=== PATIENT | male | born 1945 | race Caucasian/White ===

== ENCOUNTER 2016-11-14 12:49 | Outpatient (CLI) | payer MEDICARE, OTHER ==
--- NOTE | 2016-11-14 19:52 | CT Report ---
REVISED: THIS REPORT WAS ORIGINALLY SIGNED ON 11/15/2016 @ 0758. NO CHANGES HAVE BEEN MADE TO THE REPORT. ORIGINAL [facility] REQUISITION WAS REPRINTED ON . LOW DOSE SCREENING CHEST CT: 11/14/2016 CLINICAL HISTORY: Patient is a smoker. TECHNIQUE: Noncontrast low dose lung CT was done at 2 mm intervals. Sagittal and coronal reconstruction images were obtained. In accordance with CT protocol optimization, one or more of the following dose reduction techniques were utilized for this exam: automated exposure control, adjustment of mA and/or KV based on patient size, or use of iterative reconstructive technique. FINDINGS: Lungs show no nodules. No significant areas of ground-glass opacification are seen. No significant cystic changes are noted. Mediastinum demonstrates small benign-appearing lymph nodes in the paratracheal region. Normal cardiac size is seen. Mild to moderate coronary artery calcification is seen in all three coronary arteries. Adrenal glands appear normal. Bones demonstrate anterior spurring in the thoracic spine. IMPRESSION: NO CHANGE IS NOTED COMPARED TO 06/06/2007 AND NO SIGNIFICANT ABNORMALITY NOTED IN THE LUNGS. NORMAL CARDIAC SIZE WITH MILD TO MODERATE CORONARY ARTERY CALCIFICATION SEEN IN ALL THREE CORONARY ARTERIES. JOB #: [id number] EXT JOB #: [id number] [facility]
--- NOTE | 2016-12-08 14:08 | CT Report ---
REVISED: THIS REPORT WAS ORIGINALLY SIGNED ON 11/15/2016 @ 0758. NO CHANGES HAVE BEEN MADE TO THE REPORT. ORIGINAL [facility] REQUISITION WAS REPRINTED ON . LOW DOSE SCREENING CHEST CT: 11/14/2016 CLINICAL HISTORY: Patient is a smoker. TECHNIQUE: Noncontrast low dose lung CT was done at 2 mm intervals. Sagittal and coronal reconstruction images were obtained. In accordance with CT protocol optimization, one or more of the following dose reduction techniques were utilized for this exam: automated exposure control, adjustment of mA and/or KV based on patient size, or use of iterative reconstructive technique. FINDINGS: Lungs show no nodules. No significant areas of ground-glass opacification are seen. No significant cystic changes are noted. Mediastinum demonstrates small benign-appearing lymph nodes in the paratracheal region. Normal cardiac size is seen. Mild to moderate coronary artery calcification is seen in all three coronary arteries. Adrenal glands appear normal. Bones demonstrate anterior spurring in the thoracic spine. IMPRESSION: NO CHANGE IS NOTED COMPARED TO 06/06/2007 AND NO SIGNIFICANT ABNORMALITY NOTED IN THE LUNGS. NORMAL CARDIAC SIZE WITH MILD TO MODERATE CORONARY ARTERY CALCIFICATION SEEN IN ALL THREE CORONARY ARTERIES. MTDD
== END 2016-11-14 12:50 | disposition home or self-care (01) ==
LOC: DI 12:49
PROVIDERS: ATTEND Internal Medicine
DX: Z12.2 Encounter for screening for malignant neoplasm of respiratory organs (principal); I25.10 Atherosclerotic heart disease of native coronary artery without angina pectoris; F17.210 Nicotine dependence, cigarettes, uncomplicated

== ENCOUNTER 2017-02-21 13:48 | Outpatient (CLI) | payer MEDICARE, OTHER ==
--- NOTE | 2017-02-21 15:57 | XRAY Report ---
TWO VIEW CHEST: 02/21/2017 CLINICAL INDICATION: Productive cough. COMPARISON: CT of 11/14/2016. FINDINGS: Frontal and lateral views of the chest demonstrate a normal cardiac silhouette. The lungs are clear. Old, healed right rib fractures are noted. No effusion or pneumothorax is present. IMPRESSION: NO EVIDENCE OF ACUTE CARDIOPULMONARY DISEASE. JOB #: [id number] EXT JOB #:[id number]
== END 2017-02-21 13:49 | disposition home or self-care (01) ==
LOC: DI 13:48
PROVIDERS: ATTEND Internal Medicine
DX: R05 Cough (principal)
CPT/HCPCS: 71020

== ENCOUNTER 2017-12-21 14:49 | Emergency (ER) | payer MEDICARE, OTHER ==
[2017-12-21 14:56] VITALS: BP 149/96
--- NOTE | 2017-12-21 16:30 | ED Physician Documentation ---
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 He has a lancinating pain that is in a very focal area over the medial right knee that takes motion to start. He was worried about the vascular status specifically.) Review of Systems Constitutional: denies: Fever, Chills Cardiac: denies: Chest pain / pressure, Palpitations Respiratory: denies: Dyspnea, Cough PD PAST MEDICAL HISTORY - Past Medical History Cardiovascular: Hypertension - Past Surgical History Past Surgical History: No - Present Medications Home Medications: Ambulatory Orders Medication Instructions Recorded Confirmed Gabapentin 2 tab PO DAILY 04/25/15 04/25/15 Simvastatin 1 tab PO DAILY 04/25/15 04/25/15 Tamsulosin [Flomax] 1 tab PO DAILY 04/25/15 04/25/15 metFORMIN [Glucophage] 2 tab PO BID 04/25/15 04/25/15 Losartan Potassium 25 mg PO 12/21/17 - Allergies Allergies/Adverse Reactions: Allergies Allergy/AdvReac Type Severity Reaction Status Date / Time No Known Drug Allergies Allergy Verified 12/21/17 14:56 - Social History Does the pt smoke?: No Smoking Status: Never smoker Does the pt drink ETOH?: Yes Does the pt have substance abuse?: No PD ED PE NORMAL - Vitals Vital signs reviewed: Yes - General General: Alert and oriented X 3, No acute distress - Extremities Extremities: Other (Right knee is without effusion, he has an area about the size of a half dollar that is marked as the site of his pain but is nontender. He is tender in the popliteal fossa, there is no effusion. There is no tenderness of the anterior knee or calf. His pedal pulses are not easily palpable but they are easily dopplerable.) Results - Vitals Vitals: Vital Signs - 24 hr 12/21/17 14:53 Temperature 36.3 C L Heart Rate 67 Respiratory 20 Rate Blood Pressure 149/96 H O2 Saturation 98 Oxygen O2 Source Room air PD MEDICAL DECISION MAKING - ED course ED course: Clinically he probably has a Donis's cyst, vascular etiologies were ruled out with dopplerable pedal pulses and no evidence of DVT on exam, the DVT study did show a Donis's cyst as well. - Sepsis Event Vital Signs: Vital Signs - 24 hr 12/21/17 14:53 Temperature 36.3 C L Heart Rate 67 Respiratory 20 Rate Blood Pressure 149/96 H O2 Saturation 98 Oxygen O2 Source Room air Departure - Departure Disposition: 01 Home, Self Care Clinical Impression: Right leg pain Donis cyst Qualifiers: Laterality: right Qualified Code(s): M71.21 - Synovial cyst of popliteal space [Donis], right knee Condition: Good Record reviewed to determine appropriate education?: Yes Instructions: ED Cyst Donis Follow-Up: [facility] [Provider Group] - Within 1 week Comments: Tylenol or ibuprofen as needed for pain. Return for new or worsening symptoms. Follow-up for persistent symptoms with the orthopedist. Your blood pressure was elevated today on check into the emergency department. This does not mean that you have hypertension, it is a common phenomenon to come to the emergency department and have elevated blood pressure. I recommend that you see your primary care physician within the week to have it rechecked when you are feeling better. Discharge Date/Time: 12/21/17 18:03
--- NOTE | 2017-12-21 17:44 | Ultrasound Report ---
Procedure Date: 12/21/2017 Accession Number: [id number] / [id number] Procedure: US - Duplex Ext Veins Right CPT Code: FULL RESULT: EXAM: RIGHT LOWER EXTREMITY VENOUS ULTRASOUND EXAM DATE: 12/21/2017 05:01 PM. CLINICAL HISTORY: Leg pain/knee pain. Question of Bakers cyst. COMPARISON: None. TECHNIQUE: Real-time sonographic vascular imaging was performed by the product line manager through the lower extremity utilizing both color-flow and Doppler spectral analysis. Multiple motor vehicle field representative static images were saved for review. FINDINGS: Common Femoral Vein (CFV): Normal. CFV-GSV Junction: Normal. Profunda Femoral Vein (PFV): Normal. Femoral Vein (FV) Prox: Normal. Femoral Vein (FV) Mid: Normal. Femoral Vein (FV) Dist: Normal. Popliteal Vein: Normal. Posterior Tibial Veins: Normal. Peroneal Veins: Normal. Contralateral Side CFV: Normal. Other: Complex right popliteal fossa cyst containing debris. Cyst measures 5.9 x 4.3 x 3.8 cm. IMPRESSION: 1. Large complex right popliteal fossa cyst measuring 5.9 x 4.3 x 3.8 cm. The cyst is avascular and contains a significant amount of debris. 2. No evidence for deep venous thrombosis. RADIA
== END 2017-12-21 18:03 | disposition home or self-care (01) ==
LOC: ED 14:49
DX: M71.21 Synovial cyst of popliteal space [Baker], right knee (principal); I10 Essential (primary) hypertension; Z95.828 Presence of other vascular implants and grafts
CPT/HCPCS: 99283

== ENCOUNTER 2019-03-11 15:16 | Outpatient (CLI) | payer MEDICARE, OTHER ==
--- NOTE | 2019-03-12 10:06 | Ultrasound Report ---
Reason: NOCTURIA Procedure Date: 03/11/2019 Accession Number: [id number] / [id number] Procedure: US - Bladder CPT Code: FULL RESULT: EXAM: PELVIS ULTRASOUND, LIMITED EXAM DATE: 03/11/2019 04:00 PM. CLINICAL HISTORY: NOCTURIA. COMPARISON: None. TECHNIQUE: Real-time scanning was performed with static images obtained. FINDINGS: Bladder: The initial bladder volume was 638 mL. A 45 mL postvoid residual bladder volume is noted. Bilateral ureteral jets documented. Normal wall thickness. No masses evident. Other: None. IMPRESSION: Postvoid bladder residual 45 cc. RADIA
== END 2019-03-11 15:17 | disposition home or self-care (01) ==
LOC: DI 15:16
PROVIDERS: ATTEND Internal Medicine
DX: R35.1 Nocturia (principal); R39.198 Other difficulties with micturition
CPT/HCPCS: 76857

== ENCOUNTER 2019-10-14 13:37 | Outpatient (CLI) | payer MEDICARE, OTHER ==
--- NOTE | 2019-10-15 09:55 | XRAY Report ---
Reason: COUGH Procedure Date: 10/14/2019 Accession Number: [id number] / [id number] Procedure: XR - Chest 2 View X-Ray CPT Code: 56769 Final Report FULL RESULT: EXAM: CHEST RADIOGRAPHY EXAM DATE: 10/14/2019 01:52 PM. CLINICAL HISTORY: Cough. COMPARISON: CHEST 2 VIEW PA/LAT 02/21/2017, CT CHEST SCREEN LOW DOSE W/O 11/14/2016, XR CHEST PA AND LAT 04/01/2007. TECHNIQUE: 2 views. FINDINGS: Lungs/Pleura: Bilateral nipple shadows. No consolidations or pulmonary edema. Healed previous right posterior rib fractures. Heart size within normal limits. No pleural fluid collections. IMPRESSION: No acute consolidations identified. RADIA
== END 2019-10-14 13:38 | disposition home or self-care (01) ==
LOC: DI 13:37
PROVIDERS: ATTEND Nurse Practitioner Family
DX: R49.0 Dysphonia (principal); R05 Cough
CPT/HCPCS: 71046

== ENCOUNTER 2020-05-17 13:06 | Inpatient (IN) | payer MEDICARE, OTHER ==
[2020-05-17] MEDS ORDERED: ACETAMINOPHEN 325 MG TABLET PO PRN (13:36)
[2020-05-17] MEDS ORDERED: ONDANSETRON 4 MG/2 ML VIAL IVP PRN (13:36)
--- NOTE | 2020-05-17 14:17 | XRAY Report ---
PROCEDURE: Chest 1 View X-Ray INDICATIONS: Cellulitis TECHNIQUE: One view of the chest was acquired. COMPARISON: 10/14/2019 FINDINGS: Surgical changes and devices: None. Lungs and pleura: No pleural effusions or pneumothorax. Lungs are clear. Mediastinum: Mediastinal contours appear normal. Heart size is normal. Bones and chest wall: Healed right posterior mid to lower rib fractures are again seen. Overlying sof t tissues appear unremarkable. IMPRESSION: No acute cardiopulmonary pathology. Reviewed by: Willie Osuna MD on 05/17/2020 2:16 PM PST Approved by: Willie Osuna MD on 05/17/2020 2:16 PM PST Station ID: [id number]
[2020-05-17 14:20] LABS: BASOPHILS # (AUTO) 0.1 10^3/uL (0.0-0.1); BASOPHILS % (AUTO) 0.5 %; EOSINOPHILS # (AUTO) 0.1 10^3/uL (0.0-0.7); EOSINOPHILS % (AUTO) 1.2 %; HGB - HEMOGLOBIN 12.5 g/dL (14.0-18.0); LYMPHOCYTES # (AUTO) 1.9 10^3/uL (1.5-3.5); MEAN CORPUSCULAR HEMOGLOBIN 32.8 pg (27.0-31.0); MEAN CORPUSCULAR HGB CONC 33.8 g/dL (32.0-36.0); MEAN CORPUSCULAR VOLUME 97.1 fL (80.0-94.0); MEAN PLATELET VOLUME 9.2 fL (7.4-11.4); MONOCYTES # (AUTO) 0.8 10^3/uL (0.0-1.0); MONOCYTES % (AUTO) 8.5 %; NEUTROPHILS # (AUTO) 6.6 10^3/uL (1.5-6.6); NEUTROPHILS % (AUTO) 69.3 %; PLT - PLATELET COUNT 272 10^3/uL (130-450); RED BLOOD COUNT 3.81 10^6/uL (4.70-6.10); WHITE BLOOD COUNT 9.5 x10^3/uL (4.8-10.8)
[2020-05-17 14:28] LABS: ALBUMIN 3.8 g/dL (3.2-5.5); ALBUMIN/GLOBULIN RATIO 0.9 (1.0-2.2); BILIRUBIN,TOTAL 0.6 mg/dL (0.2-1.0); CALCIUM 9.3 mg/dL (8.5-10.3); CREATININE 0.9 mg/dL (0.6-1.2); TOTAL PROTEIN 8.1 g/dL (6.7-8.2)
[2020-05-17 14:54] LABS: INR 1.1 (0.8-1.2); PT - PROTHROMBIN TIME 11.9 secs (9.9-12.6)
[2020-05-17] MEDS: SODIUM CHLORIDE 0.9% 1,000 ML IV SCH (15:28)
[2020-05-17] MEDS ORDERED: PIPERACILLIN/TAZOBACTAM 3.375 GM in SODIUM CHLORIDE 0.9% MINIBAG 100 ML IV ONE (16:00)
--- NOTE | 2020-05-17 16:58 | PHARMACY PROGRESS NOTE ---
- Best Possible Medication History Admit Date and Time: 05/17/20 1306 Processed by: Pharmacy Medication History completed: Yes Patient Interview: Completed Secondary Source(s): Physician records, Pharmacy records As the person ultimately responsible for medication therapy, providers are able to order a medication from an existing home medication list in [facility] via the "Reconcile Routine" prior to Confirmation of that medication by care support representative. Such practice is discouraged except when the physician, in their clinical judgment, deems that a medical need exists for a medication without regard to previous use.
[2020-05-17] MEDS ORDERED: ZOLPIDEM 5 MG TABLET PO PRN (17:30)
[2020-05-17] MEDS: GABAPENTIN 300 MG CAPSULE PO SCH ×2 (17:35→21:59)
[2020-05-17] MEDS: SODIUM CHLORIDE FLUSH 0.9% 10 ML SYRINGE IVP SCH (17:36)
[2020-05-17] MEDS: INSULIN ASPART 300 UNIT/3 ML PEN SUBQ SCH ×2 (17:36→22:02)
--- NOTE | 2020-05-17 19:31 | HISTORY & PHYSICAL EXAMINATION ---
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 He has had subsequent vascular followup and was told that there is collateral flow in that blood vessel. Patient has had prior diabetic wounds of the upper portions of his feet and was told to always monitor for wounds. He has peripheral neuropathy and has painful numbness of the soles of his feet. Approximately 12 days ago, patient went on a hike and says that he thought he checked his feet and there were no problems. However, the following day while taking a shower, he noticed that there was a black area on the bottom of his right foot for which he went to see a doctor was given topical mupirocin ointment. The area got bigger and more red and he went to see his PCP, who then started him on Keflex and ordered a Wound Clinic appointment. He had the Wound Clinic appointment today and was seen by Dr. Alejandro Miner who did evaluation and deep debridement down to the muscle layer and stated that there was extensive tissue in the area and advised that the patient be admitted for IV antibiotics, having failed oral Keflex. The debrided specimen was sent for culture. Patient is requested to be admitted as a direct admit from [facility] to inpatient status. Patient has not had a fever, he has had normal vital signs at the [facility] clinic. PAST MEDICAL HISTORY: Diabetes, on insulin, type 2 diabetic for 25 years and he admits that he was so sick of managing his diabetes, that for 2 years he did not check one fingerstick glucose. The last A1c was approximately 9.9, one and a half years ago. There is a history of peripheral neuropathy, PVD, hypertension, hyperlipidemia, insomnia. ALLERGIES: NONE. MEDICATIONS 1. KwikPen Humulin insulin 35 units every evening. 2. Metformin 1500 mg in the day and 1000 mg every night. 3. Amlodipine 5 mg daily. 4. Atorvastatin 40 mg daily. 5. Recent Keflex 500 mg q.i.d. 6. Gabapentin 300 mg t.i.d. 7. Losartan 50 mg daily. 8. Ambien 10 mg every night. 9. Aleve p.m. p.r.n. pain. FAMILY HISTORY: Positive for diabetes in his father, no other inherited family diseases. The patient has 2 children and they do not have diabetes. SOCIAL HISTORY: He lives with his . He is active. 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 He chops wood, which he did recently and thinks that the extra weight of carrying the wood added to the wound on the foot. He is a nonsmoker, who quit 14 years ago, drinks alcohol with dinner, 2-3 herbie per day, uses rare THC oil for sleep. REVIEW OF SYSTEMS: There has been no fever, chills, or any cardiopulmonary symptoms, any GI symptoms. A comprehensive review of systems was performed and the pertinent positives are listed, the rest are negative. PHYSICAL EXAMINATION GENERAL: Middle-aged white male who appears in no distress. VITAL SIGNS: Blood pressure 176/74, heart rate 62 in sinus rhythm, afebrile at 36.2 and room air saturation 99%. HEENT: Unremarkable. He has moist oral mucosa. NECK: No JVD or carotid bruits. CHEST: Clear. HEART: Normal heart sounds with no murmurs. ABDOMEN: Soft, nontender. No organomegaly. EXTREMITIES: The left leg appears normal, but has decreased dorsalis pedis pulse. The right leg has redness over the great toe radiating upward and just over the first metatarsal of the right great toe. There is a large bandage. There is decreased dorsalis pedis pulse there as well and he has varicose veins in the right leg. NEUROLOGIC: Grossly intact; however, sensation was not checked. LABORATORY DATA: Sodium 133, potassium 4.5, BUN 27, creatinine 0.9, glucose 265. magnesium 2.0. Normal liver tests. Normal INR 1.1. White blood count 9.5, hemoglobin 12.5, MCV of 97, platelet count normal at 272. IMAGING: Chest x-ray: No active pulmonary disease. EKG: Normal sinus rhythm, borderline first-degree block and otherwise within normal limits. There is no prior EKG for comparison (this is my personal interpretation of the EKG). IMPRESSION/DIAGNOSES 1. Cellulitis. 2. Diabetic foot ulcer. 3. Diabetes mellitus, uncontrolled. 4. Diabetic neuropathy 5. Hypertension, uncontrolled. 6. Peripheral vascular disease. 7. Prerenal azotemia. 8. Anemia. PLAN: Admit patient to inpatient status. Start IV hydration for the prerenal azotemia. Start a diabetic diet, long-acting insulin on his schedule and sliding scale insulin coverage for Accu-Cheks. Obtain an A1c. Continue with his medications for hypertension losartan. Await the culture of tissue that was sent from the deep debridement. Start empiric antibiotics. Dr. Miner informed me that the foot had imaging done in the Wound Clinic, which checks for Pseudomonas and it did light up positive for the Pseudomonas finding. The empiric antibiotic, therefore, will be Zosyn 3.75 mg IV every 6 hours. This was reviewed with the pharmacist Jesu. Obtain a blood culture results before starting the antibiotics. Continue wound topical care as per Dr. Miner, the next bandage change will be in 2 days he said. Continue with his peripheral neuropathy medications and medication for sleep. With this description of his alcohol intake, which is 2-3 glasses of wine per night, concerns for withdrawal; therefore, a CIWA protocol will be ordered. I will also order wine with dinner while he is here. CODE STATUS: FULL CODE. DEEP VENOUS THROMBOSIS PROPHYLAXIS: Pharmacotherapy. ATTESTATION: Patient is expected to be discharged or transferred to another facility within 96 hours: Yes. cc: Alejandro Miner MD TD: 05/17/2020 19:07 MTDD
[2020-05-17] MEDS: PIPERACILLIN/TAZOBACTAM 3.375 GM in SODIUM CHLORIDE 0.9% MINIBAG 100 ML IV SCH (20:30)
[2020-05-17] MEDS ORDERED: CEPHALEXIN 500 MG PO SCH (21:00)
[2020-05-17] MEDS: FAMOTIDINE 20 MG TABLET PO SCH (21:58)
[2020-05-17] MEDS: ZOLPIDEM 5 MG TABLET PO SCH (21:59)
[2020-05-17] MEDS: diphenhydrAMINE 25 MG CAPSULE PO SCH (22:00)
[2020-05-17] MEDS: INSULIN GLARGINE 300 UNIT/3 ML PEN SUBQ SCH (22:01)
[2020-05-18] MEDS: SODIUM CHLORIDE FLUSH 0.9% 10 ML SYRINGE IVP SCH ×4 (00:02→23:32)
[2020-05-18 01:29] LABS: BILIRUBIN,URINE NEGATIVE (NEGATIVE); GLUCOSE, URINE (UA) >=1000 mg/dL (NEGATIVE); KETONES,URINE (UA) NEGATIVE (NEGATIVE); LEUKOCYTE ESTERASE, URINE NEGATIVE (NEGATIVE); NITRITE,URINE NEGATIVE (NEGATIVE); OCCULT BLOOD,URINE NEGATIVE (NEGATIVE); PROTEIN,URINE TRACE mg/dL (NEGATIVE); UROBILINOGEN,URINE 0.2 (NORMAL) E.U./dL (NORMAL)
[2020-05-18 01:31] LABS: CLARITY,URINE CLEAR (CLEAR)
[2020-05-18 01:38] LABS: BACTERIA,URINE None Seen /HPF (None Seen); RBC,URINE None Seen /HPF (0-5); SQUAMOUS EPITHELIAL CELL,UR NONE SEEN (<= Few)
[2020-05-18] MEDS: PIPERACILLIN/TAZOBACTAM 3.375 GM in SODIUM CHLORIDE 0.9% MINIBAG 100 ML IV SCH ×3 (03:49→20:12)
[2020-05-18] MEDS: GABAPENTIN 300 MG CAPSULE PO SCH ×4 (05:09→20:08)
[2020-05-18] MEDS: SODIUM CHLORIDE 0.9% 1,000 ML IV SCH ×3 (05:09→17:06)
[2020-05-18 05:31] LABS: BASOPHILS % (AUTO) 0.4 %; EOSINOPHILS # (AUTO) 0.1 10^3/uL (0.0-0.7); EOSINOPHILS % (AUTO) 1.8 %; LYMPHOCYTES # (AUTO) 1.8 10^3/uL (1.5-3.5); LYMPHOCYTES % (AUTO) 22.8 %; MEAN CORPUSCULAR HEMOGLOBIN 32.7 pg (27.0-31.0); MEAN CORPUSCULAR HGB CONC 33.7 g/dL (32.0-36.0); MEAN PLATELET VOLUME 9.1 fL (7.4-11.4); MONOCYTES # (AUTO) 0.8 10^3/uL (0.0-1.0); MONOCYTES % (AUTO) 10.3 %; NEUTROPHILS % (AUTO) 64.2 %; PLT - PLATELET COUNT 281 10^3/uL (130-450); RED BLOOD COUNT 3.67 10^6/uL (4.70-6.10); RED CELL DISTRIBUTION WIDTH 11.9 % (12.0-15.0); WHITE BLOOD COUNT 7.8 x10^3/uL (4.8-10.8)
[2020-05-18 05:42] LABS: CALCIUM 8.9 mg/dL (8.5-10.3)
[2020-05-18] MEDS ORDERED: GABAPENTIN 300 MG CAPSULE PO ONE (09:00)
[2020-05-18] MEDS: INSULIN ASPART 300 UNIT/3 ML PEN SUBQ SCH ×4 (09:38→20:10)
[2020-05-18] MEDS: FAMOTIDINE 20 MG TABLET PO SCH ×2 (09:39→20:08)
[2020-05-18] MEDS: amLODIPine 5 MG TABLET PO SCH (09:39)
[2020-05-18] MEDS: LOSARTAN 50 MG TABLET PO SCH (09:40)
[2020-05-18] MEDS: ATORVASTATIN 40 MG TABLET PO SCH (09:40)
[2020-05-18] MEDS: HEPARIN 5,000 UNIT/ML VIAL SUBQ SCH ×2 (09:46→20:12)
[2020-05-18 11:56] LABS: HEMOGLOBIN A1c% 9.7 % (4.27-6.07)
--- NOTE | 2020-05-18 13:23 | PROVIDER PROGRESS NOTE ---
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 Wound culture is pending, MRI of feet is pending, will continue antibiotics. Dependent on mri result, orthopedic surgeon might NEED TO be consulted (2) Cellulitis of right lower leg Assessment/Plan: Improved for right lower extremity cellulitis. Erythema and tenderness was improved. Continue antibiotics (3) Diabetes type 2, uncontrolled Assessment/Plan: Patient's A1c is 9.7, uncontrolled. continue home Lantus, increase slide scale, lab monitor (4) HTN (hypertension) Assessment/Plan: Stable (5) PVD (peripheral vascular disease) Assessment/Plan: pt has no acute pain. Patient has a history of PVD, pt had surgery done. advised patient follow with his surgeon.Resume patient home medication gabapentin - Current Meds Current Meds: Current Medications Generic Name Dose Route Start Last Admin Trade Name Freq PRN Reason Stop Dose Admin Amlodipine Besylate 5 mg 05/18/20 09:00 05/18/20 09:39 Norvasc PO 5 mg DAILY ANNIA Administration Atorvastatin Calcium 40 mg 05/18/20 09:00 05/18/20 09:40 Lipitor PO 40 mg DAILY ANNIA Administration Diphenhydramine HCl 25 mg 05/17/20 21:00 05/17/20 22:00 Benadryl PO 25 mg QPM ANNIA Administration Famotidine 20 mg 05/17/20 21:00 05/18/20 09:39 Pepcid PO 20 mg BID ANNIA Administration Heparin Sodium (Porcine) 5,000 unit 05/18/20 09:00 05/18/20 09:46 SUBQ 5,000 unit BID ANNIA Administration Sodium Chloride 1,000 mls @ 100 mls/hr 05/17/20 14:00 05/18/20 09:43 Normal Saline 0.9% IV 100 mls/hr .Q10H ANNIA Administration Piperacillin Sod/Tazobactam 100 mls @ 25 mls/hr 05/17/20 20:00 05/18/20 09:43 Sod 3.375 gm/ Sodium Chloride IV Infused Q8H ANNIA Infusion Insulin Glargine 35 unit 05/17/20 21:00 05/17/20 22:01 Lantus Solostar SUBQ 35 unit QPM ANNIA Administration Losartan Potassium 50 mg 05/18/20 09:00 05/18/20 09:40 Cozaar PO 50 mg DAILY ANNIA Administration Sodium Chloride 10 ml 05/17/20 17:00 05/18/20 09:41 Normal Saline Flush 0.9% IVP 10 ml 0100,0900,1700 ANNIA Administration Zolpidem Tartrate 10 mg 05/17/20 21:00 05/17/20 21:59 Ambien PO 10 mg QPM ANNIA Administration - Lab Result Fish Bone Diagrams: 05/18/20 05:12 05/18/20 05:12 - Additional Planning My Orders: My Active Orders 05/18/20 11:00 Wound Care - MAC [RC] .ONCE 05/18/20 13:00 Gabapentin [Neurontin] 300 mg PO QID 05/18/20 17:00 Insulin Aspart [NovoLOG] 3 - 11 unit SUBQ 0800,1200,1700,2100 Subjective - Subjective Patient Reports: Feeling Better Objective Vital Signs: Vital Signs - 24 hr 05/17/20 05/17/20 05/18/20 14:50 16:00 00:00 Temperature 36.2 C L 36.3 C L Heart Rate Heart Rate [ 62 71 Brachial] Respiratory 20 16 Rate Blood Pressure 176/74 H 125/61 [Right Brachial artery] O2 Saturation 99 93 05/18/20 05/18/20 08:00 09:20 Temperature 36.7 C 36.7 C Heart Rate 61 Heart Rate [ 61 Brachial] Respiratory 18 18 Rate Blood Pressure 146/70 H [Right Brachial artery] O2 Saturation 96 96 Oxygen O2 Source Room air I&O (Last 24 Hrs): Intake and Output Totals x24h 05/16/20 05/17/20 05/18/20 23:59 23:59 23:59 Intake Total 750 3111 Output Total 350 Balance 750 2761 General: Alert, Oriented x3, No acute distress HEENT: Atraumatic Neck: Supple Lymphatic: no adenopathy Neuro: Alert, Non Focal, Oriented Times 3 Cardiovascular: Regular rate, Normal S1, Normal S2 Respiratory: Chest non-tender, No respiratory distress, Breath sounds nml Abdomen: Normal bowel sounds, Soft - Results Results: Laboratory Results WBC 7.8 x10^3/uL (4.8-10.8) 05/18/20 05:12 RBC 3.67 10^6/uL (4.70-6.10) L 05/18/20 05:12 Hgb 12.0 g/dL (14.0-18.0) L 05/18/20 05:12 Hct 35.6 % (42.0-52.0) L 05/18/20 05:12 MCV 97.0 fL (80.0-94.0) H 05/18/20 05:12 MCH 32.7 pg (27.0-31.0) H 05/18/20 05:12 MCHC 33.7 g/dL (32.0-36.0) 05/18/20 05:12 RDW 11.9 % (12.0-15.0) L 05/18/20 05:12 Plt Count 281 10^3/uL (130-450) 05/18/20 05:12 MPV 9.1 fL (7.4-11.4) 05/18/20 05:12 Neut # (Auto) 5.0 10^3/uL (1.5-6.6) 05/18/20 05:12 Lymph # (Auto) 1.8 10^3/uL (1.5-3.5) 05/18/20 05:12 [place] # (Auto) 0.8 10^3/uL (0.0-1.0) 05/18/20 05:12 Eos # (Auto) 0.1 10^3/uL (0.0-0.7) 05/18/20 05:12 Baso # (Auto) 0.0 10^3/uL (0.0-0.1) 05/18/20 05:12 Absolute Nucleated RBC 0.00 x10^3/uL 05/18/20 05:12 Nucleated RBC % 0.0 /100WBC 05/18/20 05:12 PT 11.9 secs (9.9-12.6) 05/17/20 14:13 INR 1.1 (0.8-1.2) 05/17/20 14:13 Sodium 139 mmol/L (135-145) 05/18/20 05:12 Potassium 4.4 mmol/L (3.5-5.0) 05/18/20 05:12 Chloride 103 mmol/L (101-111) 05/18/20 05:12 Carbon Dioxide 25 mmol/L (21-32) 05/18/20 05:12 Anion Gap 11.0 (6-13) 05/18/20 05:12 BUN 21 mg/dL (6-20) H 05/18/20 05:12 Creatinine 1.0 mg/dL (0.6-1.2) 05/18/20 05:12 Estimated GFR (MDRD) 73 (>89) L 05/18/20 05:12 Glucose 122 mg/dL (70-100) H 05/18/20 05:12 POC Whole Bld Glucose 293 mg/dL (70 - 100) H 05/18/20 11:33 Estimat Average Glucose 232 mg/dL (70-100) H 05/18/20 05:12 Hemoglobin A1c % 9.7 % (4.27-6.07) H 05/18/20 05:12 Calcium 8.9 mg/dL (8.5-10.3) 05/18/20 05:12 Magnesium 2.0 mg/dL (1.7-2.8) 05/17/20 14:13 Total Bilirubin 0.6 mg/dL (0.2-1.0) 05/17/20 14:13 AST 12 IU/L (10-42) 05/17/20 14:13 ALT 16 IU/L (10-60) 05/17/20 14:13 Alkaline Phosphatase 86 IU/L (42-121) 05/17/20 14:13 Total Protein 8.1 g/dL (6.7-8.2) 05/17/20 14:13 Albumin 3.8 g/dL (3.2-5.5) 05/17/20 14:13 Globulin 4.3 g/dL (2.1-4.2) H 05/17/20 14:13 Albumin/Globulin Ratio 0.9 (1.0-2.2) L 05/17/20 14:13 Urine Color YELLOW 05/18/20 01:20 Urine Clarity CLEAR (CLEAR) 05/18/20 01:20 Urine pH 7.0 PH (5.0-7.5) 05/18/20 01:20 Ur Specific Tyler 1.020 (1.002-1.030) 05/18/20 01:20 Urine Protein TRACE mg/dL (NEGATIVE) 05/18/20 01:20 Urine Glucose (UA) >=1000 mg/dL (NEGATIVE) H 05/18/20 01:20 Urine Ketones NEGATIVE mg/dL (NEGATIVE) 05/18/20 01:20 Urine Occult Blood NEGATIVE (NEGATIVE) 05/18/20 01:20 Urine Nitrite NEGATIVE (NEGATIVE) 05/18/20 01:20 Urine Bilirubin NEGATIVE (NEGATIVE) 05/18/20 01:20 Urine Urobilinogen 0.2 (NORMAL) E.U./dL (NORMAL) 05/18/20 01:20 Ur Leukocyte Esterase NEGATIVE (NEGATIVE) 05/18/20 01:20 Urine RBC None Seen /HPF (0-5) 05/18/20 01:20 Urine WBC 0-3 /HPF (0-3) 05/18/20 01:20 Ur Squamous Epith Cells NONE SEEN (<= Few) 05/18/20 01:20 Urine Bacteria None Seen /HPF (None Seen) 05/18/20 01:20 Urine Culture Comments NOT INDICATED 05/18/20 01:20 ABX Reporting Has patient been on IV antibiotics over the past 48 hours?: Yes Current Medications - Current Medications Current Medications: Active Medications Acetaminophen (Tylenol) 650 mg PO Q4HR PRN PRN Reason: Pain or Fever > 38C (100.4F) Amlodipine Besylate (Norvasc) 5 mg PO DAILY [facility] Last Admin: 05/18/20 09:39 Dose: 5 mg Documented by: Atorvastatin Calcium (Lipitor) 40 mg PO DAILY [facility] Last Admin: 05/18/20 09:40 Dose: 40 mg Documented by: Diphenhydramine HCl (Benadryl) 25 mg PO QPM [facility] Last Admin: 05/17/20 22:00 Dose: 25 mg Documented by: Famotidine (Pepcid) 20 mg PO BID [facility] Last Admin: 05/18/20 09:39 Dose: 20 mg Documented by: Gabapentin (Neurontin) 300 mg PO QID [facility] Heparin Sodium (Porcine) () 5,000 unit SUBQ BID [facility] Last Admin: 05/18/20 09:46 Dose: 5,000 unit Documented by: Sodium Chloride (Normal Saline 0.9%) 1,000 mls @ 100 mls/hr IV .Q10H [facility] Last Admin: 05/18/20 09:43 Dose: 100 mls/hr Documented by: Piperacillin Sod/Tazobactam (Sod 3.375 gm/ Sodium Chloride) 100 mls @ 25 mls/hr IV Q8H [facility] Last Infusion: 05/18/20 09:43 Dose: Infused Documented by: Insulin Aspart (Novolog) 3 - 11 unit SUBQ 0800,1200,1700,2100 [facility]; Protocol Insulin Glargine (Lantus Solostar) 35 unit SUBQ QPM [facility] Last Admin: 05/17/20 22:01 Dose: 35 unit Documented by: Losartan Potassium (Cozaar) 50 mg PO DAILY [facility] Last Admin: 05/18/20 09:40 Dose: 50 mg Documented by: Ondansetron HCl (Zofran Inj) 4 mg IVP Q6HR PRN PRN Reason: Nausea / Vomiting Sodium Chloride (Normal Saline Flush 0.9%) 10 ml IVP PRN PRN PRN Reason: NEEDED PER PROVIDER ORDERS Sodium Chloride (Normal Saline Flush 0.9%) 10 ml IVP 0100,0900,1700 [facility] Last Admin: 05/18/20 09:41 Dose: 10 ml Documented by: Wine (Wine) 187 ml PO 1800 ANNIA Zolpidem Tartrate (Ambien) 10 mg PO QPM [facility] Last Admin: 05/17/20 21:59 Dose: 10 mg Documented by: metFORMIN [Glucophage] 1,500 mg PO DAILY 04/25/15 Atorvastatin [Lipitor] 40 mg PO DAILY 05/17/20 Cephalexin [Keflex] 500 mg PO QID 05/17/20 Gabapentin [Neurontin] 300 mg PO TID 05/17/20 Insulin Glargine,Hum.rec.anlog [Basaglar Kwikpen U-100] 35 units SQ QPM 05/17/20 Losartan Potassium [Cozaar] 50 mg PO DAILY 05/17/20 Zolpidem Tartrate [Ambien] 10 mg PO QPM PRN 05/17/20 amLODIPine [Norvasc] 5 mg PO DAILY 05/17/20 metFORMIN [Glucophage] 1,000 mg PO QPM 05/17/20
[2020-05-18] MEDS: WINE 187 ML BOTTLE PO SCH (17:08)
--- NOTE | 2020-05-18 17:59 | MRI Report ---
PROCEDURE: Foot RT W/O INDICATIONS: osteomyelitis TECHNIQUE: Noncontrast sagittal T1 spin echo and T2 fast spin echo with fat saturation, long-axis T1 spin echo a nd T2 fast spin echo with fat saturation, short-axis proton density fast spin echo and T2 fast spin e cho with fat saturation through the forefoot. COMPARISON: None. FINDINGS: Image quality: Excellent. Bones and joints: Increased signal is seen in the medial aspect of the metatarsal head adjacent to t he area of skin irregularity, although no discrete cortical destruction is seen to suggest osteomyeli tis. Moderate to severe degenerative changes are seen at the first metatarsophalangeal joint with sub chondral cystic changes and a small joint effusion. Mild degenerative changes are seen in the navicul ar-medial cuneiform articulation. No acute fracture is seen. Soft tissues: Skin irregularity is seen at the medial aspect of the foot adjacent to the first metat arsophalangeal joint with adjacent soft tissue edema. No well-formed fluid collection is seen to sugg est abscess formation. Soft tissue edema is seen at the medial and dorsal aspect of the foot. There i s diffuse fatty infiltration of the intrinsic foot musculature that is most likely related to chronic denervation changes. No intermetatarsal mass is identified. The visualized flexor and extensor tendo ns are intact. No plantar plate tear is identified. IMPRESSION: 1. Soft tissue ulcer at the medial aspect of the foot at the level of the first metatarsophalangeal joint. No discrete subcutaneous fluid collection or abscess is seen. Subcutaneous edema is seen exten ding into the dorsum of the foot. 2. Mild osseous edema at the medial aspect of the first metatarsal head without overlying cortical d estruction is most likely reactive, although osteomyelitis is not entirely excluded. 3. Moderate to severe degenerative changes at the first metatarsophalangeal joint. 4. Chronic fatty infiltration of the intrinsic foot musculature is most likely related to chronic de nervation changes. Reviewed by: Ruddy Ugarte MD on 05/18/2020 5:58 PM PST Approved by: Ruddy Ugarte MD on 05/18/2020 5:58 PM PST Station ID: [id number]
[2020-05-18] MEDS: ZOLPIDEM 5 MG TABLET PO SCH (20:08)
[2020-05-18] MEDS: diphenhydrAMINE 25 MG CAPSULE PO SCH (20:08)
[2020-05-18] MEDS: INSULIN GLARGINE 300 UNIT/3 ML PEN SUBQ SCH (20:09)
[2020-05-19] MEDS: PIPERACILLIN/TAZOBACTAM 3.375 GM in SODIUM CHLORIDE 0.9% MINIBAG 100 ML IV SCH ×3 (04:56→20:26)
[2020-05-19 05:04] LABS: BASOPHILS # (AUTO) 0.1 10^3/uL (0.0-0.1); BASOPHILS % (AUTO) 0.8 %; EOSINOPHILS # (AUTO) 0.2 10^3/uL (0.0-0.7); EOSINOPHILS % (AUTO) 2.5 %; LYMPHOCYTES % (AUTO) 26.3 %; MEAN CORPUSCULAR HEMOGLOBIN 31.7 pg (27.0-31.0); MEAN CORPUSCULAR HGB CONC 32.3 g/dL (32.0-36.0); MEAN CORPUSCULAR VOLUME 98.1 fL (80.0-94.0); MEAN PLATELET VOLUME 8.7 fL (7.4-11.4); MONOCYTES # (AUTO) 0.6 10^3/uL (0.0-1.0); MONOCYTES % (AUTO) 8.3 %; NEUTROPHILS # (AUTO) 4.6 10^3/uL (1.5-6.6); NEUTROPHILS % (AUTO) 61.8 %; PLT - PLATELET COUNT 287 10^3/uL (130-450); RED BLOOD COUNT 3.78 10^6/uL (4.70-6.10); RED CELL DISTRIBUTION WIDTH 11.9 % (12.0-15.0); WHITE BLOOD COUNT 7.5 x10^3/uL (4.8-10.8)
[2020-05-19 05:13] LABS: CALCIUM 9.1 mg/dL (8.5-10.3); CREATININE 1.1 mg/dL (0.6-1.2)
[2020-05-19] MEDS: LOSARTAN 50 MG TABLET PO SCH (08:37)
[2020-05-19] MEDS: GABAPENTIN 300 MG CAPSULE PO SCH ×4 (08:37→21:16)
[2020-05-19] MEDS: amLODIPine 5 MG TABLET PO SCH (08:38)
[2020-05-19] MEDS: FAMOTIDINE 20 MG TABLET PO SCH ×2 (08:38→21:16)
[2020-05-19] MEDS: ATORVASTATIN 40 MG TABLET PO SCH (08:38)
[2020-05-19] MEDS: INSULIN ASPART 300 UNIT/3 ML PEN SUBQ SCH ×6 (08:39→21:14)
[2020-05-19] MEDS: polyethylene glycoL 3350 17 GM PACKET PO SCH ×2 (08:40→08:44)
[2020-05-19] MEDS: SODIUM CHLORIDE FLUSH 0.9% 10 ML SYRINGE IVP SCH ×2 (08:42→16:10)
[2020-05-19] MEDS: HEPARIN 5,000 UNIT/ML VIAL SUBQ SCH ×2 (08:49→21:13)
--- NOTE | 2020-05-19 11:20 | WOUND CARE PROGRESS NOTE ---
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 Plan: wound hygiene today including sharp debridement, repeat culture, new hydrophilic dressing with antibiofilm properties, continue IV antibiotics (pip/shady), reassess in 48 hours. (2) Cellulitis of right lower leg Assessment/Plan: not significantly improved yet. Plan: as above, repeat culture, repeat debridement, continue IV antibiotic therapy; reassess in 48 hours. (3) Diabetes type 2, uncontrolled Qualifiers: Glycemic state: with hyperglycemia Qualified Code(s): E11.65 - Type 2 diabetes mellitus with hyperglycemia Assessment/Plan: still suboptimally controlled. Plan: continue inpatient monitoring and adjustment of insulin as needed. A1c result is pending. - Results Lab Results: Laboratory Results Sodium 139 mmol/L (135-145) 05/19/20 04:58 Potassium 4.5 mmol/L (3.5-5.0) 05/19/20 04:58 Chloride 106 mmol/L (101-111) 05/19/20 04:58 Carbon Dioxide 24 mmol/L (21-32) 05/19/20 04:58 Anion Gap 9.0 (6-13) 05/19/20 04:58 BUN 21 mg/dL (6-20) H 05/19/20 04:58 Creatinine 1.1 mg/dL (0.6-1.2) 05/19/20 04:58 Glucose 114 mg/dL (70-100) H 05/19/20 04:58 Hemoglobin A1c % 9.7 % (4.27-6.07) H 05/18/20 05:12 Calcium 9.1 mg/dL (8.5-10.3) 05/19/20 04:58 Total Bilirubin 0.6 mg/dL (0.2-1.0) 05/17/20 14:13 AST 12 IU/L (10-42) 05/17/20 14:13 ALT 16 IU/L (10-60) 05/17/20 14:13 Alkaline Phosphatase 86 IU/L (42-121) 05/17/20 14:13 Total Protein 8.1 g/dL (6.7-8.2) 05/17/20 14:13 Albumin 3.8 g/dL (3.2-5.5) 05/17/20 14:13 Globulin 4.3 g/dL (2.1-4.2) H 05/17/20 14:13 Albumin/Globulin Ratio 0.9 (1.0-2.2) L 05/17/20 14:13 05/17/20 14:13 Blood - Right Arm Blood Culture - Preliminary NO GROWTH AFTER 1 DAY - Home Meds/Allergies Allergies No Known Drug Allergies Allergy (Verified 05/17/20 15:10) Home Medications Atorvastatin [Lipitor] 40 mg PO DAILY 05/17/20 [History Confirmed 05/17/20] Cephalexin [Keflex] 500 mg PO QID 05/17/20 [History Confirmed 05/17/20] Gabapentin [Neurontin] 300 mg PO TID 05/17/20 [History Confirmed 05/17/20] Insulin Glargine,Hum.rec.anlog [Basaglar Kwikpen U-100] 35 units SQ QPM 05/17/20 [History Confirmed 05/17/20] Losartan Potassium [Cozaar] 50 mg PO DAILY 05/17/20 [History Confirmed 05/17/20] Zolpidem Tartrate [Ambien] 10 mg PO QPM PRN 05/17/20 [History Confirmed 05/17/20] amLODIPine [Norvasc] 5 mg PO DAILY 05/17/20 [History Confirmed 05/17/20] metFORMIN [Glucophage] 1,000 mg PO QPM 05/17/20 [History Confirmed 05/17/20] - Additional Planning Condition/Complexity: Stable Plan Discussed with:: Patient Time Spent: 31-60 minutes Additional Planning Notes: discussed case with hospitalist NGOZI Genao, who agrees with above plans. Objective General: Alert, Oriented x3, Cooperative, No acute distress Extremities: Other (foot still erythematous, swollen; leg still swollen; wound with obvious central areas of necrosis, edges intact, slight undermining distally; periwound macerated; satellite partial thickness wound stable with exposed dermis with minimal slough) Comments/Notes: Molelulight imaging with DarkDrape shows no focal areas of excessive bacterial growth before or after debridement of necrotic tissue and was used for measuring wound size. MRI of foot showed no evidence for osteomyelitis or undrained abscess. - Wound Care Assessment Vital Signs Temp Pulse Resp BP Pulse Ox 05/19/20 08:00 36.7 C 68 16 151/73 H 99 Subjective - Subjective Patient Reports: Feeling Better (less pain in foot, good appetite, sleeping better, no fever/chills; foot and dressing became wet in shower yesterday and nursing staff changed dressing. He reports BS post prandially in 300s) Procedure - Procedure Note Wound Debridement Procedure Note: The wound(s) is/are located: right foot . After informed consent, the wound(s) and periwound were cleansed, then 5% topical lidocaine was applied for local anesthesia. Using a 5 mm curette, the wound(s) was/were sharply debrided of necrotic skin and subcutaneous tissue and muscle including eschar down to viable bleeding muscle and tendon sheath tissue. Skin edges were freshened in a similar fashion. Hemostasis was achieved with pressure and time. A new dressing consisting of a hydrophilic product with antibiofilm properties was applied. Patient tolerated the procedure well without apparent complications. Appropriate follow up instructions were given. Wound measurements in cm: L x W x D: Pre- and post-debridement measurements: Distal wound: pre- 3.9 x 3.5 x 0.9 post- 3.7 x 3.8 x1.9 Proximal wound: pre-0.9 x 4.2 x 0.1 post- 0.9 x 4.2 x0.1 Total area debrided in cm sq: 24.44 ([facility]
[2020-05-19] MEDS: SODIUM CHLORIDE FLUSH 0.9% 10 ML SYRINGE IVP PRN (11:43)
--- NOTE | 2020-05-19 14:53 | PROVIDER PROGRESS NOTE ---
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 Miner. pt has non healing with persistent infection/necrosis. pt had sharp debridement, repeat culture, new hydrophilic dressing with antibiofilm properties, continue IV antibiotics (pip/shady), reassess pt in 48 hours, and followup with new culture, continue pain control. (2) Cellulitis of right lower leg Assessment/Plan: improved yet special in around calf area, almost no erythema or tenderness. blood culture was negative for bacteremia. Plan: repeat wound culture, continue IV antibiotic therapy. (3) Diabetes type 2, uncontrolled still suboptimally controlled. Plan: continue inpatient monitoring and adjustment of insulin slide scale to schedule Tid insulin plus slide scale, continue hiv prevention specialist consult, A1c result is 9.7, advise pt for medical- compliance. (4) HTN (hypertension) Assessment/Plan: Stable (5) PVD (peripheral vascular disease) Assessment/Plan: pt has no acute pain. Patient has a history of PVD, pt had surgery done. advised patient follow up with his surgeon.Marisa patient home medication gabapentin (3) Diabetes type 2, uncontrolled Qualifiers: Glycemic state: with hyperglycemia Qualified Code(s): E11.65 - Type 2 diabetes mellitus with hyperglycemia - Current Meds Current Meds: Current Medications Generic Name Dose Route Start Last Admin Trade Name Freq PRN Reason Stop Dose Admin Amlodipine Besylate 5 mg 05/18/20 09:00 05/19/20 08:38 Norvasc PO 5 mg DAILY ANNIA Administration Atorvastatin Calcium 40 mg 05/18/20 09:00 05/19/20 08:38 Lipitor PO 40 mg DAILY ANNIA Administration Diphenhydramine HCl 25 mg 05/17/20 21:00 05/18/20 20:08 Benadryl PO 25 mg QPM ANNIA Administration Famotidine 20 mg 05/17/20 21:00 05/19/20 08:38 Pepcid PO 20 mg BID ANNIA Administration Gabapentin 300 mg 05/18/20 13:00 05/19/20 13:00 Neurontin PO 300 mg QID ANNIA Administration Heparin Sodium (Porcine) 5,000 unit 05/18/20 09:00 05/19/20 08:49 SUBQ 5,000 unit BID ANNIA Administration Piperacillin Sod/Tazobactam 100 mls @ 25 mls/hr 05/17/20 20:00 05/19/20 11:37 Sod 3.375 gm/ Sodium Chloride IV 25 mls/hr Q8H ANNIA Administration Insulin Aspart 5 unit 05/19/20 12:00 05/19/20 11:47 Novolog SUBQ 5 unit TIDWM ANNIA Administration Protocol Insulin Aspart 2 - 10 unit 05/19/20 12:00 05/19/20 11:48 Novolog SUBQ 8 unit 0800,1200,1700,2100 ANNIA Administration Protocol Insulin Glargine 35 unit 05/17/20 21:00 05/18/20 20:09 Lantus Solostar SUBQ 35 unit QPM ANNIA Administration Losartan Potassium 50 mg 05/18/20 09:00 05/19/20 08:37 Cozaar PO 50 mg DAILY ANNIA Administration Polyethylene Glycol 17 gm 05/19/20 07:30 05/19/20 08:44 Miralax PO Not Given DAILY ANNIA Sodium Chloride 10 ml 05/17/20 13:36 05/19/20 11:43 Normal Saline Flush 0.9% IVP 10 ml PRN PRN Administration NEEDED PER PROVIDER ORDERS Sodium Chloride 10 ml 05/17/20 17:00 05/19/20 08:42 Normal Saline Flush 0.9% IVP Not Given 0100,0900,1700 ANNIA Wine 187 ml 05/18/20 18:00 05/18/20 17:08 Wine PO 187 ml 1800 ANNIA Administration Zolpidem Tartrate 10 mg 05/17/20 21:00 05/18/20 20:08 Ambien PO 10 mg QPM ANNIA Administration - Lab Result Fish Bone Diagrams: 05/19/20 04:58 05/19/20 04:58 - Additional Planning My Orders: My Active Orders 05/19/20 12:00 Insulin Aspart [NovoLOG] 2 - 10 unit SUBQ 0800,1200,1700,2100 Insulin Aspart [NovoLOG] 5 unit SUBQ TIDWM Subjective - Subjective Nursing Reports: No Complaints Objective Vital Signs: Vital Signs - 24 hr 05/18/20 05/18/20 05/19/20 15:47 23:17 08:00 Temperature 36.2 C L 36.1 C L 36.7 C Heart Rate [ 81 72 68 Brachial] Respiratory 18 18 16 Rate Blood Pressure 148/81 H 138/57 H 151/73 H [Right Brachial artery] O2 Saturation 98 98 99 Oxygen O2 Source Room air I&O (Last 24 Hrs): Intake and Output Totals x24h 05/17/20 05/18/20 05/19/20 23:59 23:59 23:59 Intake Total 750 4556 1870 Output Total 350 Balance 750 4206 1870 General: Alert, Oriented x3, No acute distress HEENT: Atraumatic Neck: Supple Lymphatic: no adenopathy Neuro: Alert, Non Focal, Oriented Times 3 Cardiovascular: Regular rate, Normal S1, Normal S2 Respiratory: Chest non-tender, No respiratory distress, Breath sounds nml Abdomen: Normal bowel sounds, Soft Extremities: Normal pulses, Other (cellulitis around right ulcer is improved, with significant reduce erythema and swelling. ulcer was covered with dressing by wound care team) - Results Results: Laboratory Results WBC 7.5 x10^3/uL (4.8-10.8) 05/19/20 04:58 RBC 3.78 10^6/uL (4.70-6.10) L 05/19/20 04:58 Hgb 12.0 g/dL (14.0-18.0) L 05/19/20 04:58 Hct 37.1 % (42.0-52.0) L 05/19/20 04:58 MCV 98.1 fL (80.0-94.0) H 05/19/20 04:58 MCH 31.7 pg (27.0-31.0) H 05/19/20 04:58 MCHC 32.3 g/dL (32.0-36.0) 05/19/20 04:58 RDW 11.9 % (12.0-15.0) L 05/19/20 04:58 Plt Count 287 10^3/uL (130-450) 05/19/20 04:58 MPV 8.7 fL (7.4-11.4) 05/19/20 04:58 Neut # (Auto) 4.6 10^3/uL (1.5-6.6) 05/19/20 04:58 Lymph # (Auto) 2.0 10^3/uL (1.5-3.5) 05/19/20 04:58 [place] # (Auto) 0.6 10^3/uL (0.0-1.0) 05/19/20 04:58 Eos # (Auto) 0.2 10^3/uL (0.0-0.7) 05/19/20 04:58 Baso # (Auto) 0.1 10^3/uL (0.0-0.1) 05/19/20 04:58 Absolute Nucleated RBC 0.00 x10^3/uL 05/19/20 04:58 Nucleated RBC % 0.0 /100WBC 05/19/20 04:58 PT 11.9 secs (9.9-12.6) 05/17/20 14:13 INR 1.1 (0.8-1.2) 05/17/20 14:13 Sodium 139 mmol/L (135-145) 05/19/20 04:58 Potassium 4.5 mmol/L (3.5-5.0) 05/19/20 04:58 Chloride 106 mmol/L (101-111) 05/19/20 04:58 Carbon Dioxide 24 mmol/L (21-32) 05/19/20 04:58 Anion Gap 9.0 (6-13) 05/19/20 04:58 BUN 21 mg/dL (6-20) H 05/19/20 04:58 Creatinine 1.1 mg/dL (0.6-1.2) 05/19/20 04:58 Estimated GFR (MDRD) 65 (>89) L 05/19/20 04:58 Glucose 114 mg/dL (70-100) H 05/19/20 04:58 POC Whole Bld Glucose 304 mg/dL (70 - 100) H 05/19/20 11:27 Estimat Average Glucose 232 mg/dL (70-100) H 05/18/20 05:12 Hemoglobin A1c % 9.7 % (4.27-6.07) H 05/18/20 05:12 Calcium 9.1 mg/dL (8.5-10.3) 05/19/20 04:58 Magnesium 2.0 mg/dL (1.7-2.8) 05/17/20 14:13 Total Bilirubin 0.6 mg/dL (0.2-1.0) 05/17/20 14:13 AST 12 IU/L (10-42) 05/17/20 14:13 ALT 16 IU/L (10-60) 05/17/20 14:13 Alkaline Phosphatase 86 IU/L (42-121) 05/17/20 14:13 Total Protein 8.1 g/dL (6.7-8.2) 05/17/20 14:13 Albumin 3.8 g/dL (3.2-5.5) 05/17/20 14:13 Globulin 4.3 g/dL (2.1-4.2) H 05/17/20 14:13 Albumin/Globulin Ratio 0.9 (1.0-2.2) L 05/17/20 14:13 Urine Color YELLOW 05/18/20 01:20 Urine Clarity CLEAR (CLEAR) 05/18/20 01:20 Urine pH 7.0 PH (5.0-7.5) 05/18/20 01:20 Ur Specific [place] 1.020 (1.002-1.030) 05/18/20 01:20 Urine Protein TRACE mg/dL (NEGATIVE) 05/18/20 01:20 Urine Glucose (UA) >=1000 mg/dL (NEGATIVE) H 05/18/20 01:20 Urine Ketones NEGATIVE mg/dL (NEGATIVE) 05/18/20 01:20 Urine Occult Blood NEGATIVE (NEGATIVE) 05/18/20 01:20 Urine Nitrite NEGATIVE (NEGATIVE) 05/18/20 01:20 Urine Bilirubin NEGATIVE (NEGATIVE) 05/18/20 01:20 Urine Urobilinogen 0.2 (NORMAL) E.U./dL (NORMAL) 05/18/20 01:20 Ur Leukocyte Esterase NEGATIVE (NEGATIVE) 05/18/20 01:20 Urine RBC None Seen /HPF (0-5) 05/18/20 01:20 Urine WBC 0-3 /HPF (0-3) 05/18/20 01:20 Ur Squamous Epith Cells NONE SEEN (<= Few) 05/18/20 01:20 Urine Bacteria None Seen /HPF (None Seen) 05/18/20 01:20 Urine Culture Comments NOT INDICATED 05/18/20 01:20 ABX Reporting Has patient been on IV antibiotics over the past 48 hours?: Yes Current Medications - Current Medications Current Medications: Active Medications Acetaminophen (Tylenol) 650 mg PO Q4HR PRN PRN Reason: Pain or Fever > 38C (100.4F) Amlodipine Besylate (Norvasc) 5 mg PO DAILY [facility] Last Admin: 05/19/20 08:38 Dose: 5 mg Documented by: Atorvastatin Calcium (Lipitor) 40 mg PO DAILY [facility] Last Admin: 05/19/20 08:38 Dose: 40 mg Documented by: Diphenhydramine HCl (Benadryl) 25 mg PO QPM [facility] Last Admin: 05/18/20 20:08 Dose: 25 mg Documented by: Famotidine (Pepcid) 20 mg PO BID [facility] Last Admin: 05/19/20 08:38 Dose: 20 mg Documented by: Gabapentin (Neurontin) 300 mg PO QID [facility] Last Admin: 05/19/20 13:00 Dose: 300 mg Documented by: Heparin Sodium (Porcine) () 5,000 unit SUBQ BID [facility] Last Admin: 05/19/20 08:49 Dose: 5,000 unit Documented by: Piperacillin Sod/Tazobactam (Sod 3.375 gm/ Sodium Chloride) 100 mls @ 25 mls/hr IV Q8H [facility] Last Admin: 05/19/20 11:37 Dose: 25 mls/hr Documented by: Insulin Aspart (Novolog) 5 unit SUBQ TIDWM [facility]; Protocol Last Admin: 05/19/20 11:47 Dose: 5 unit Documented by: Insulin Aspart (Novolog) 2 - 10 unit SUBQ 0800,1200,1700,2100 [facility]; Protocol Last Admin: 05/19/20 11:48 Dose: 8 unit Documented by: Insulin Glargine (Lantus Solostar) 35 unit SUBQ QPM [facility] Last Admin: 05/18/20 20:09 Dose: 35 unit Documented by: Losartan Potassium (Cozaar) 50 mg PO DAILY [facility] Last Admin: 05/19/20 08:37 Dose: 50 mg Documented by: Ondansetron HCl (Zofran Inj) 4 mg IVP Q6HR PRN PRN Reason: Nausea / Vomiting Polyethylene Glycol (Miralax) 17 gm PO DAILY [facility] Last Admin: 05/19/20 08:44 Dose: Not Given Documented by: Sodium Chloride (Normal Saline Flush 0.9%) 10 ml IVP PRN PRN PRN Reason: NEEDED PER PROVIDER ORDERS Last Admin: 05/19/20 11:43 Dose: 10 ml Documented by: Sodium Chloride (Normal Saline Flush 0.9%) 10 ml IVP 0100,0900,1700 [facility] Last Admin: 05/19/20 08:42 Dose: Not Given Documented by: Wine (Wine) 187 ml PO 1800 [facility] Last Admin: 05/18/20 17:08 Dose: 187 ml Documented by: Zolpidem Tartrate (Ambien) 10 mg PO QPM [facility] Last Admin: 05/18/20 20:08 Dose: 10 mg Documented by: metFORMIN [Glucophage] 1,500 mg PO DAILY 04/25/15 Atorvastatin [Lipitor] 40 mg PO DAILY 05/17/20 Cephalexin [Keflex] 500 mg PO QID 05/17/20 Gabapentin [Neurontin] 300 mg PO TID 05/17/20 Insulin Glargine,Hum.rec.anlog [Basaglar Kwikpen U-100] 35 units SQ QPM 05/17/20 Losartan Potassium [Cozaar] 50 mg PO DAILY 05/17/20 Zolpidem Tartrate [Ambien] 10 mg PO QPM PRN 05/17/20 amLODIPine [Norvasc] 5 mg PO DAILY 05/17/20 metFORMIN [Glucophage] 1,000 mg PO QPM 05/17/20
[2020-05-19] MEDS: WINE 187 ML BOTTLE PO SCH (18:26)
[2020-05-19] MEDS: INSULIN GLARGINE 300 UNIT/3 ML PEN SUBQ SCH (21:14)
[2020-05-19] MEDS: ZOLPIDEM 5 MG TABLET PO SCH (21:16)
[2020-05-19] MEDS: diphenhydrAMINE 25 MG CAPSULE PO SCH (21:16)
[2020-05-20] MEDS: PIPERACILLIN/TAZOBACTAM 3.375 GM in SODIUM CHLORIDE 0.9% MINIBAG 100 ML IV SCH ×3 (04:19→20:40)
[2020-05-20] MEDS: SODIUM CHLORIDE FLUSH 0.9% 10 ML SYRINGE IVP SCH ×3 (04:19→17:30)
[2020-05-20 05:05] LABS: BASOPHILS # (AUTO) 0.1 10^3/uL (0.0-0.1); BASOPHILS % (AUTO) 0.8 %; EOSINOPHILS # (AUTO) 0.2 10^3/uL (0.0-0.7); EOSINOPHILS % (AUTO) 2.9 %; HGB - HEMOGLOBIN 12.2 g/dL (14.0-18.0); LYMPHOCYTES # (AUTO) 2.3 10^3/uL (1.5-3.5); LYMPHOCYTES % (AUTO) 29.8 %; MEAN CORPUSCULAR HEMOGLOBIN 32.3 pg (27.0-31.0); MEAN CORPUSCULAR HGB CONC 32.8 g/dL (32.0-36.0); MEAN CORPUSCULAR VOLUME 98.4 fL (80.0-94.0); MEAN PLATELET VOLUME 8.8 fL (7.4-11.4); MONOCYTES # (AUTO) 0.8 10^3/uL (0.0-1.0); MONOCYTES % (AUTO) 9.9 %; NEUTROPHILS # (AUTO) 4.3 10^3/uL (1.5-6.6); NEUTROPHILS % (AUTO) 56.3 %; PLT - PLATELET COUNT 323 10^3/uL (130-450); RED BLOOD COUNT 3.78 10^6/uL (4.70-6.10); RED CELL DISTRIBUTION WIDTH 11.8 % (12.0-15.0); WHITE BLOOD COUNT 7.7 x10^3/uL (4.8-10.8)
[2020-05-20 05:17] LABS: CALCIUM 9.4 mg/dL (8.5-10.3); CREATININE 1.1 mg/dL (0.6-1.2)
[2020-05-20] MEDS: polyethylene glycoL 3350 17 GM PACKET PO SCH (08:42)
[2020-05-20] MEDS: LOSARTAN 50 MG TABLET PO SCH (08:42)
[2020-05-20] MEDS: amLODIPine 5 MG TABLET PO SCH (08:42)
[2020-05-20] MEDS: FAMOTIDINE 20 MG TABLET PO SCH ×2 (08:42→20:29)
[2020-05-20] MEDS: DOCUSATE SODIUM 250 MG CAPSULE PO SCH (08:42)
[2020-05-20] MEDS: SENNA 8.6 MG TABLET PO SCH (08:42)
[2020-05-20] MEDS: ATORVASTATIN 40 MG TABLET PO SCH (08:43)
[2020-05-20] MEDS: GABAPENTIN 300 MG CAPSULE PO SCH ×4 (08:43→20:29)
[2020-05-20] MEDS: INSULIN ASPART 300 UNIT/3 ML PEN SUBQ SCH ×7 (08:44→21:28)
[2020-05-20] MEDS: HEPARIN 5,000 UNIT/ML VIAL SUBQ SCH ×2 (09:01→20:25)
[2020-05-20] MEDS: SODIUM CHLORIDE FLUSH 0.9% 10 ML SYRINGE IVP PRN ×2 (09:01→09:02)
[2020-05-20] MEDS ORDERED: INSULIN ASPART 300 UNIT/3 ML PEN SUBQ ONE (13:47)
--- NOTE | 2020-05-20 13:50 | PROVIDER PROGRESS NOTE ---
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 Patient had wound care in [facility] clinic by Dr. Miner. pt has non healing with persistent infection/necrosis. pt had sharp debridement, repeat culture, new hydrophilic dressing with antibiofilm properties, continue IV antibiotics (pip/shady), reassess pt in 48 hours, and followup with new culture, continue pain control. (2) Cellulitis of right lower leg Assessment/Plan: improved yet special in around calf area, almost no erythema or tenderness. blood culture was negative for bacteremia. Plan: repeat wound culture, continue IV antibiotic therapy. (3) Diabetes type 2, uncontrolled 05/20 add morning Lantus and increase daily short acting insulin, continue ACHS, and slide scale, continue hypoglycemia protocol still suboptimally controlled. Plan: continue inpatient monitoring and adjustment of insulin slide scale to schedule Tid insulin plus slide scale, continue funeral workers consult, A1c result is 9.7, advise pt for medical- compliance. (4) HTN (hypertension) Assessment/Plan: Stable (5) PVD (peripheral vascular disease) Assessment/Plan: pt has no acute pain. Patient has a history of PVD, pt had surgery done. advised patient follow up with his surgeon. Resume patient home medication gabapentin (3) Diabetes type 2, uncontrolled Qualifiers: Glycemic state: with hyperglycemia Qualified Code(s): E11.65 - Type 2 diabetes mellitus with hyperglycemia - Current Meds Current Meds: Current Medications Generic Name Dose Route Start Last Admin Trade Name Rene PRN Reason Stop Dose Admin Amlodipine Besylate 5 mg 05/18/20 09:00 05/20/20 08:42 Norvasc PO 5 mg DAILY ANNIA Administration Atorvastatin Calcium 40 mg 05/18/20 09:00 05/20/20 08:43 Lipitor PO 40 mg DAILY ANNIA Administration Diphenhydramine HCl 25 mg 05/17/20 21:00 05/19/20 21:16 Benadryl PO 25 mg QPM ANNIA Administration Docusate Sodium 250 - 500 mg 05/20/20 09:00 05/20/20 08:42 Colace 250mg Capsule PO 250 mg DAILY ANNIA Administration Famotidine 20 mg 05/17/20 21:00 05/20/20 08:42 Pepcid PO 20 mg BID ANNIA Administration Gabapentin 300 mg 05/18/20 13:00 05/20/20 12:23 Neurontin PO 300 mg QID ANNIA Administration Heparin Sodium (Porcine) 5,000 unit 05/18/20 09:00 05/20/20 09:01 SUBQ 5,000 unit BID ANNIA Administration Piperacillin Sod/Tazobactam 100 mls @ 25 mls/hr 05/17/20 20:00 05/20/20 12:22 Sod 3.375 gm/ Sodium Chloride IV 25 mls/hr Q8H ANNIA Administration Insulin Aspart 5 unit 05/19/20 12:00 05/20/20 12:20 Novolog SUBQ 5 unit TIDWM ANNIA Administration Protocol Insulin Aspart 2 - 10 unit 05/19/20 12:00 05/20/20 12:20 Novolog SUBQ 8 unit 0800,1200,1700,2100 ANNIA Administration Protocol Insulin Glargine 35 unit 05/17/20 21:00 05/19/20 21:14 Lantus Solostar SUBQ 35 unit QPM ANNIA Administration Losartan Potassium 50 mg 05/18/20 09:00 05/20/20 08:42 Cozaar PO 50 mg DAILY ANNIA Administration Polyethylene Glycol 17 gm 05/19/20 07:30 05/20/20 08:42 Miralax PO 17 gm DAILY ANNIA Administration Senna 8.6 - 17.2 mg 05/20/20 09:00 05/20/20 08:42 Senokot PO 8.6 mg DAILY ANNIA Administration Sodium Chloride 10 ml 05/17/20 13:36 05/20/20 09:02 Normal Saline Flush 0.9% IVP 10 ml PRN PRN Administration NEEDED PER PROVIDER ORDERS Sodium Chloride 10 ml 05/17/20 17:00 05/20/20 08:45 Normal Saline Flush 0.9% IVP 10 ml 0100,0900,1700 ANNIA Administration Wine 187 ml 05/18/20 18:00 05/19/20 18:26 Wine PO 187 ml 1800 ANNIA Administration Zolpidem Tartrate 10 mg 05/17/20 21:00 05/19/20 21:16 Ambien PO 10 mg QPM ANNIA Administration - Lab Result Fish Bone Diagrams: 05/20/20 04:55 05/20/20 04:55 - Additional Planning My Orders: My Active Orders 05/20/20 09:00 Docusate Sodium 250Mg Capsule [Colace 250Mg Capsule] 250 - 500 mg PO DAILY Senna [Senokot] 8.6 - 17.2 mg PO DAILY 05/20/20 17:00 Saccharomyces Boulardii [Florastor] 250 mg PO BIDWM Subjective - Subjective Patient Reports: Feeling Better Nursing Reports: No Complaints Objective Vital Signs: Vital Signs - 24 hr 05/19/20 05/19/20 05/20/20 15:49 23:43 08:00 Temperature 36.9 C 36.4 C L 36.8 C Heart Rate [ 66 67 68 Brachial] Respiratory 14 18 20 Rate Blood Pressure 129/53 L 124/59 L 142/73 H [Right Brachial artery] O2 Saturation 99 97 99 Oxygen O2 Source Room air I&O (Last 24 Hrs): Intake and Output Totals x24h 05/18/20 05/19/20 05/20/20 23:59 23:59 23:59 Intake Total 4556 2620 1320 Output Total 350 Balance 4206 2620 1320 General: Alert, Oriented x3, No acute distress HEENT: Atraumatic Neck: Supple Lymphatic: no adenopathy Neuro: Alert, Non Focal, Oriented Times 3 Cardiovascular: Regular rate, Normal S1, Normal S2 Respiratory: Chest non-tender, No respiratory distress, Breath sounds nml Abdomen: Normal bowel sounds, Soft Extremities: Normal pulses - Results Results: Laboratory Results WBC 7.7 x10^3/uL (4.8-10.8) 05/20/20 04:55 RBC 3.78 10^6/uL (4.70-6.10) L 05/20/20 04:55 Hgb 12.2 g/dL (14.0-18.0) L 05/20/20 04:55 Hct 37.2 % (42.0-52.0) L 05/20/20 04:55 MCV 98.4 fL (80.0-94.0) H 05/20/20 04:55 MCH 32.3 pg (27.0-31.0) H 05/20/20 04:55 MCHC 32.8 g/dL (32.0-36.0) 05/20/20 04:55 RDW 11.8 % (12.0-15.0) L 05/20/20 04:55 Plt Count 323 10^3/uL (130-450) 05/20/20 04:55 MPV 8.8 fL (7.4-11.4) 05/20/20 04:55 Neut # (Auto) 4.3 10^3/uL (1.5-6.6) 05/20/20 04:55 Lymph # (Auto) 2.3 10^3/uL (1.5-3.5) 05/20/20 04:55 [place] # (Auto) 0.8 10^3/uL (0.0-1.0) 05/20/20 04:55 Eos # (Auto) 0.2 10^3/uL (0.0-0.7) 05/20/20 04:55 Baso # (Auto) 0.1 10^3/uL (0.0-0.1) 05/20/20 04:55 Absolute Nucleated RBC 0.00 x10^3/uL 05/20/20 04:55 Nucleated RBC % 0.0 /100WBC 05/20/20 04:55 PT 11.9 secs (9.9-12.6) 05/17/20 14:13 INR 1.1 (0.8-1.2) 05/17/20 14:13 Sodium 139 mmol/L (135-145) 05/20/20 04:55 Potassium 4.6 mmol/L (3.5-5.0) 05/20/20 04:55 Chloride 102 mmol/L (101-111) 05/20/20 04:55 Carbon Dioxide 27 mmol/L (21-32) 05/20/20 04:55 Anion Gap 10.0 (6-13) 05/20/20 04:55 BUN 23 mg/dL (6-20) H 05/20/20 04:55 Creatinine 1.1 mg/dL (0.6-1.2) 05/20/20 04:55 Estimated GFR (MDRD) 65 (>89) L 05/20/20 04:55 Glucose 151 mg/dL (70-100) H 05/20/20 04:55 POC Whole Bld Glucose 313 mg/dL (70 - 100) H 05/20/20 11:37 Estimat Average Glucose 232 mg/dL (70-100) H 05/18/20 05:12 Hemoglobin A1c % 9.7 % (4.27-6.07) H 05/18/20 05:12 Calcium 9.4 mg/dL (8.5-10.3) 05/20/20 04:55 Magnesium 2.0 mg/dL (1.7-2.8) 05/17/20 14:13 Total Bilirubin 0.6 mg/dL (0.2-1.0) 05/17/20 14:13 AST 12 IU/L (10-42) 05/17/20 14:13 ALT 16 IU/L (10-60) 05/17/20 14:13 Alkaline Phosphatase 86 IU/L (42-121) 05/17/20 14:13 Total Protein 8.1 g/dL (6.7-8.2) 05/17/20 14:13 Albumin 3.8 g/dL (3.2-5.5) 05/17/20 14:13 Globulin 4.3 g/dL (2.1-4.2) H 05/17/20 14:13 Albumin/Globulin Ratio 0.9 (1.0-2.2) L 05/17/20 14:13 Urine Color YELLOW 05/18/20 01:20 Urine Clarity CLEAR (CLEAR) 05/18/20 01:20 Urine pH 7.0 PH (5.0-7.5) 05/18/20 01:20 Ur Specific [place] 1.020 (1.002-1.030) 05/18/20 01:20 Urine Protein TRACE mg/dL (NEGATIVE) 05/18/20 01:20 Urine Glucose (UA) >=1000 mg/dL (NEGATIVE) H 05/18/20 01:20 Urine Ketones NEGATIVE mg/dL (NEGATIVE) 05/18/20 01:20 Urine Occult Blood NEGATIVE (NEGATIVE) 05/18/20 01:20 Urine Nitrite NEGATIVE (NEGATIVE) 05/18/20 01:20 Urine Bilirubin NEGATIVE (NEGATIVE) 05/18/20 01:20 Urine Urobilinogen 0.2 (NORMAL) E.U./dL (NORMAL) 05/18/20 01:20 Ur Leukocyte Esterase NEGATIVE (NEGATIVE) 05/18/20 01:20 Urine RBC None Seen /HPF (0-5) 05/18/20 01:20 Urine WBC 0-3 /HPF (0-3) 05/18/20 01:20 Ur Squamous Epith Cells NONE SEEN (<= Few) 05/18/20 01:20 Urine Bacteria None Seen /HPF (None Seen) 05/18/20 01:20 Urine Culture Comments NOT INDICATED 05/18/20 01:20 Coronavirus (PCR) NEGATIVE 05/18/20 10:24 ABX Reporting Has patient been on IV antibiotics over the past 48 hours?: Yes Current Medications - Current Medications Current Medications: Active Medications Acetaminophen (Tylenol) 650 mg PO Q4HR PRN PRN Reason: Pain or Fever > 38C (100.4F) Amlodipine Besylate (Norvasc) 5 mg PO DAILY [facility] Last Admin: 05/20/20 08:42 Dose: 5 mg Documented by: Atorvastatin Calcium (Lipitor) 40 mg PO DAILY [facility] Last Admin: 05/20/20 08:43 Dose: 40 mg Documented by: Diphenhydramine HCl (Benadryl) 25 mg PO QPM [facility] Last Admin: 05/19/20 21:16 Dose: 25 mg Documented by: Docusate Sodium (Colace 250mg Capsule) 250 - 500 mg PO DAILY [facility] Last Admin: 05/20/20 08:42 Dose: 250 mg Documented by: Famotidine (Pepcid) 20 mg PO BID [facility] Last Admin: 05/20/20 08:42 Dose: 20 mg Documented by: Gabapentin (Neurontin) 300 mg PO QID [facility] Last Admin: 05/20/20 12:23 Dose: 300 mg Documented by: Heparin Sodium (Porcine) () 5,000 unit SUBQ BID [facility] Last Admin: 05/20/20 09:01 Dose: 5,000 unit Documented by: Piperacillin Sod/Tazobactam (Sod 3.375 gm/ Sodium Chloride) 100 mls @ 25 mls/hr IV Q8H [facility] Last Admin: 05/20/20 12:22 Dose: 25 mls/hr Documented by: Insulin Aspart (Novolog) 5 unit SUBQ TIDWM [facility]; Protocol Last Admin: 05/20/20 12:20 Dose: 5 unit Documented by: Insulin Aspart (Novolog) 2 - 10 unit SUBQ 0800,1200,1700,2100 [facility]; Protocol Last Admin: 05/20/20 12:20 Dose: 8 unit Documented by: Insulin Glargine (Lantus Solostar) 35 unit SUBQ QPM [facility] Last Admin: 05/19/20 21:14 Dose: 35 unit Documented by: Insulin Glargine (Lantus Solostar) 8 unit SUBQ QDBREAKFAST [facility] Losartan Potassium (Cozaar) 50 mg PO DAILY [facility] Last Admin: 05/20/20 08:42 Dose: 50 mg Documented by: Ondansetron HCl (Zofran Inj) 4 mg IVP Q6HR PRN PRN Reason: Nausea / Vomiting Polyethylene Glycol (Miralax) 17 gm PO DAILY [facility] Last Admin: 05/20/20 08:42 Dose: 17 gm Documented by: Saccharomyces Boulardii (Florastor) 250 mg PO BIDWM [facility] Senna (Senokot) 8.6 - 17.2 mg PO DAILY [facility] Last Admin: 05/20/20 08:42 Dose: 8.6 mg Documented by: Sodium Chloride (Normal Saline Flush 0.9%) 10 ml IVP PRN PRN PRN Reason: NEEDED PER PROVIDER ORDERS Last Admin: 05/20/20 09:02 Dose: 10 ml Documented by: Sodium Chloride (Normal Saline Flush 0.9%) 10 ml IVP 0100,0900,1700 [facility] Last Admin: 05/20/20 08:45 Dose: 10 ml Documented by: Wine (Wine) 187 ml PO 1800 [facility] Last Admin: 05/19/20 18:26 Dose: 187 ml Documented by: Zolpidem Tartrate (Ambien) 10 mg PO QPM [facility] Last Admin: 05/19/20 21:16 Dose: 10 mg Documented by: metFORMIN [Glucophage] 1,500 mg PO DAILY 04/25/15 Atorvastatin [Lipitor] 40 mg PO DAILY 05/17/20 Cephalexin [Keflex] 500 mg PO QID 05/17/20 Gabapentin [Neurontin] 300 mg PO TID 05/17/20 Insulin Glargine,Hum.rec.anlog [Basaglar Kwikpen U-100] 35 units SQ QPM 05/17/20 Losartan Potassium [Cozaar] 50 mg PO DAILY 05/17/20 Zolpidem Tartrate [Ambien] 10 mg PO QPM PRN 05/17/20 amLODIPine [Norvasc] 5 mg PO DAILY 05/17/20 metFORMIN [Glucophage] 1,000 mg PO QPM 05/17/20
[2020-05-20] MEDS: SACCHAROMYCES BOULARDII 250 MG CAPSULE PO SCH (17:00)
[2020-05-20] MEDS: WINE 187 ML BOTTLE PO SCH (17:26)
[2020-05-20] MEDS: diphenhydrAMINE 25 MG CAPSULE PO SCH (20:29)
[2020-05-20] MEDS: ZOLPIDEM 5 MG TABLET PO SCH (20:29)
[2020-05-20] MEDS: INSULIN GLARGINE 300 UNIT/3 ML PEN SUBQ SCH (21:29)
[2020-05-21] MEDS: SODIUM CHLORIDE FLUSH 0.9% 10 ML SYRINGE IVP SCH ×3 (00:46→17:02)
[2020-05-21] MEDS: PIPERACILLIN/TAZOBACTAM 3.375 GM in SODIUM CHLORIDE 0.9% MINIBAG 100 ML IV SCH ×2 (04:22→12:31)
[2020-05-21] MEDS: SODIUM CHLORIDE FLUSH 0.9% 10 ML SYRINGE IVP PRN ×2 (04:22→12:38)
[2020-05-21 05:57] LABS: BASOPHILS # (AUTO) 0.1 10^3/uL (0.0-0.1); BASOPHILS % (AUTO) 0.8 %; EOSINOPHILS # (AUTO) 0.3 10^3/uL (0.0-0.7); EOSINOPHILS % (AUTO) 3.5 %; HGB - HEMOGLOBIN 12.1 g/dL (14.0-18.0); LYMPHOCYTES # (AUTO) 2.1 10^3/uL (1.5-3.5); LYMPHOCYTES % (AUTO) 27.7 %; MEAN CORPUSCULAR HEMOGLOBIN 32.9 pg (27.0-31.0); MEAN CORPUSCULAR VOLUME 96.7 fL (80.0-94.0); MEAN PLATELET VOLUME 8.9 fL (7.4-11.4); MONOCYTES # (AUTO) 0.7 10^3/uL (0.0-1.0); MONOCYTES % (AUTO) 9.6 %; NEUTROPHILS # (AUTO) 4.4 10^3/uL (1.5-6.6); NEUTROPHILS % (AUTO) 57.9 %; PLT - PLATELET COUNT 298 10^3/uL (130-450); RED BLOOD COUNT 3.68 10^6/uL (4.70-6.10); RED CELL DISTRIBUTION WIDTH 11.8 % (12.0-15.0); WHITE BLOOD COUNT 7.6 x10^3/uL (4.8-10.8)
[2020-05-21 06:07] LABS: CALCIUM 8.7 mg/dL (8.5-10.3); CREATININE 1.1 mg/dL (0.6-1.2)
[2020-05-21] MEDS: HEPARIN 5,000 UNIT/ML VIAL SUBQ SCH ×2 (07:50→20:50)
[2020-05-21] MEDS: INSULIN ASPART 300 UNIT/3 ML PEN SUBQ SCH ×7 (07:57→20:57)
[2020-05-21] MEDS: GABAPENTIN 300 MG CAPSULE PO SCH ×4 (07:58→20:52)
[2020-05-21] MEDS: LOSARTAN 50 MG TABLET PO SCH (07:58)
[2020-05-21] MEDS: DOCUSATE SODIUM 250 MG CAPSULE PO SCH (07:58)
[2020-05-21] MEDS: amLODIPine 5 MG TABLET PO SCH (07:58)
[2020-05-21] MEDS: polyethylene glycoL 3350 17 GM PACKET PO SCH (07:58)
[2020-05-21] MEDS: SACCHAROMYCES BOULARDII 250 MG CAPSULE PO SCH ×2 (07:58→16:30)
[2020-05-21] MEDS: FAMOTIDINE 20 MG TABLET PO SCH ×2 (07:58→20:52)
[2020-05-21] MEDS: ATORVASTATIN 40 MG TABLET PO SCH (07:58)
[2020-05-21] MEDS: SENNA 8.6 MG TABLET PO SCH (07:59)
[2020-05-21] MEDS ORDERED: INSULIN GLARGINE 300 UNIT/3 ML PEN SUBQ SCH (08:00)
--- NOTE | 2020-05-21 09:41 | WOUND CARE PROGRESS NOTE ---
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 Plan: Wound hygiene to consist of sharp debridement of nonviable tissue. Awaiting culture results. Call to patients provider, Ferguson, to request that patient have continued IV antibiotics through the weekend. Dressing today with silver hydrofiber and secured with a boarder dressing. This dressing should stay dry and in place until follow up appoint in the wound care center on Sunday. (2) Diabetes type 2, uncontrolled Qualifiers: Glycemic state: with hyperglycemia Qualified Code(s): E11.65 - Type 2 diabetes mellitus with hyperglycemia Assessment/Plan: Suboptimal control/A1C 9.7%. Plan: Referral for Diabetic education with our diabetic educators in place. Continue inpatient monitoring of blood glucose and insulin per protocol. (3) Cellulitis of right lower leg Assessment/Plan: Starting to improve. Plan: Wound culture indicates beta hemolytic strep group B. Continue inpatient IV antibiotics (Zosyn). Follow up in the wound care center in 4 days. - Results Lab Results: Laboratory Results Sodium 135 mmol/L (135-145) 05/21/20 05:30 Potassium 4.0 mmol/L (3.5-5.0) 05/21/20 05:30 Chloride 103 mmol/L (101-111) 05/21/20 05:30 Carbon Dioxide 25 mmol/L (21-32) 05/21/20 05:30 Anion Gap 7.0 (6-13) 05/21/20 05:30 BUN 30 mg/dL (6-20) H 05/21/20 05:30 Creatinine 1.1 mg/dL (0.6-1.2) 05/21/20 05:30 Glucose 171 mg/dL (70-100) H 05/21/20 05:30 Hemoglobin A1c % 9.7 % (4.27-6.07) H 05/18/20 05:12 Calcium 8.7 mg/dL (8.5-10.3) 05/21/20 05:30 Total Bilirubin 0.6 mg/dL (0.2-1.0) 05/17/20 14:13 AST 12 IU/L (10-42) 05/17/20 14:13 ALT 16 IU/L (10-60) 05/17/20 14:13 Alkaline Phosphatase 86 IU/L (42-121) 05/17/20 14:13 Total Protein 8.1 g/dL (6.7-8.2) 05/17/20 14:13 Albumin 3.8 g/dL (3.2-5.5) 05/17/20 14:13 Globulin 4.3 g/dL (2.1-4.2) H 05/17/20 14:13 Albumin/Globulin Ratio 0.9 (1.0-2.2) L 05/17/20 14:13 05/19/20 11:00 Foot - Right Wound Culture - Preliminary 05/17/20 14:13 Blood - Right Arm Blood Culture - Preliminary NO GROWTH AFTER 2 DAYS - Home Meds/Allergies Allergies No Known Drug Allergies Allergy (Verified 05/17/20 15:10) Home Medications Atorvastatin [Lipitor] 40 mg PO DAILY 05/17/20 [History Confirmed 05/17/20] Cephalexin [Keflex] 500 mg PO QID 05/17/20 [History Confirmed 05/17/20] Gabapentin [Neurontin] 300 mg PO TID 05/17/20 [History Confirmed 05/17/20] Insulin Glargine,Hum.rec.anlog [Basaglar Kwikpen U-100] 35 units SQ QPM 05/17/20 [History Confirmed 05/17/20] Losartan Potassium [Cozaar] 50 mg PO DAILY 05/17/20 [History Confirmed 05/17/20] Zolpidem Tartrate [Ambien] 10 mg PO QPM PRN 05/17/20 [History Confirmed 05/17/20] amLODIPine [Norvasc] 5 mg PO DAILY 05/17/20 [History Confirmed 05/17/20] metFORMIN [Glucophage] 1,000 mg PO QPM 05/17/20 [History Confirmed 05/17/20] - Additional Planning Condition/Complexity: Other (Infected) Plan Discussed with:: Patient Time Spent: 31-60 minutes Additional Planning Notes: Discussed plan of care with NGOZI Genao, who agrees with the plan. Objective General: Alert, Oriented x3, Cooperative Extremities: Other (See wound assessment) - Wound Care Assessment Vital Signs Temp Pulse Resp BP Pulse Ox 05/21/20 07:39 36.8 C 63 16 114/53 L 93 Wound Wound Type [dorsal mid-foot] Diabetic ulcer Wound Type [R medial hallux] Diabetic ulcer The wound is located on patients right medial foot over the metatarsophalangeal joint. It measures 3.7 x 3.8 x 1.7 predebridement. The wound is full thickness extending to muscle and tendon. The wound base is 75% slough, 15% pale non-granular tissue and 10% fat with edges that are attached. The distal edge is lifted and easily removed with debridement. There is no undermining or tunneling. There is a moderate amount of exudate without odor. The periwound has cellulitic erythema that does not extend beyond the previously marked boarders. There is a mild amount of swelling to the foot and it is warm to touch. Patient denies pain. Subjective - Subjective Patient Reports: No Complaints (Denies any fevers, chills, nausea, vomiting.) Procedure - Procedure Note After informed consent, the wound on right foot and periwound were cleansed, then 5% topical lidocaine was applied for local anesthesia. Using a 5 mm curette, a #15 blade and forceps, the wound was sharply debrided of necrotic skin and subcutaneous tissue including eschar down to viable bleeding subcutaneous fat tissue and muscle with tendon exposure. Skin edges were freshened in a similar fashion. Hemostasis was achieved with pressure and time. A new dressing consisting of a hydrophilic product with antibiogel properties was applied. Patient tolerated the procedure well without apparent complications. Appropriate follow up instructions were given. Wound measurements in cm: L x W x D: Pre- and post-debridement measurements: Pre: 3.7 x 3.8 x 1.7 Post: 3.7 x 3.8 x 1.8
--- NOTE | 2020-05-21 11:49 | PROVIDER PROGRESS NOTE ---
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 Patient had I&D in [facility] clinic, Medical provider Ms Yanez called me hope pt continue IV antibiotics treatment with wound care in the hospital, then they will see pt on next Sunday. Wound culture show patient had beta-hemolytic group B. Continue Zosyn IV. Patient concerned his diabetic uncontrolled, add instructional leader RN for christian monge. Patient also concerned for his diabetes ulcer foot protection shoe advice, ask orthopedics help. MRI of foot show likely no bony lesion yet. thank [facility] [place] [facility] clinic care to pt 05/20 We will continue antibiotics, patient will have wound evaluation in [facility] [place] [facility] on tomorrow, will follow up. Patient had wound care in [facility] [facility] clinic by Dr. Miner. pt has non healing with persistent infection/necrosis. pt had sharp debridement, repeat culture, new hydrophilic dressing with antibiofilm properties, continue IV antibiotics (pip/shady), reassess pt in 48 hours, and followup with new culture, continue pain control. (2) Cellulitis of right lower leg Assessment/Plan: 05/21 great improved for his cellulitis. continue antibiotics. improved yet special in around calf area, almost no erythema or tenderness. blood culture was negative for bacteremia. Plan: repeat wound culture, continue IV antibiotic therapy. (3) Diabetes type 2, uncontrolled 05/21 will more tight control of pt's glucose level, increase Lantus dosage gradually and increase slide scale insulin dosage. continue ACHS and hypoglycemia protocol. 05/20 add morning Lantus and increase daily short acting insulin, continue ACHS, and slide scale, continue hypoglycemia protocol still suboptimally controlled. Plan: continue inpatient monitoring and adjustment of insulin slide scale to schedule Tid insulin plus slide scale, continue wrapper sorter consult, A1c result is 9.7, advise pt for medical- compliance. (4) HTN (hypertension) Assessment/Plan: Stable (5) PVD (peripheral vascular disease) Assessment/Plan: pt has no acute pain. Patient has a history of PVD, pt had surgery done with bypass. advised patient follow up with his surgeon. Resume patient home medication gabapentin (3) Diabetes type 2, uncontrolled Qualifiers: Glycemic state: with hyperglycemia Qualified Code(s): E11.65 - Type 2 diabetes mellitus with hyperglycemia - Current Meds Current Meds: Current Medications Generic Name Dose Route Start Last Admin Trade Name Rene PRN Reason Stop Dose Admin Amlodipine Besylate 5 mg 05/18/20 09:00 05/21/20 07:58 Norvasc PO 5 mg DAILY ANNIA Administration Atorvastatin Calcium 40 mg 05/18/20 09:00 05/21/20 07:58 Lipitor PO 40 mg DAILY ANNIA Administration Diphenhydramine HCl 25 mg 05/17/20 21:00 05/20/20 20:29 Benadryl PO 25 mg QPM ANNIA Administration Docusate Sodium 250 - 500 mg 05/20/20 09:00 05/21/20 07:58 Colace 250mg Capsule PO 500 mg DAILY ANNIA Administration Famotidine 20 mg 05/17/20 21:00 05/21/20 07:58 Pepcid PO 20 mg BID ANNIA Administration Gabapentin 300 mg 05/18/20 13:00 05/21/20 07:58 Neurontin PO 300 mg QID ANNIA Administration Heparin Sodium (Porcine) 5,000 unit 05/18/20 09:00 05/21/20 07:50 SUBQ 5,000 unit BID ANNIA Administration Piperacillin Sod/Tazobactam 100 mls @ 25 mls/hr 05/17/20 20:00 05/21/20 08:51 Sod 3.375 gm/ Sodium Chloride IV Infused Q8H ANNIA Infusion Insulin Aspart 5 unit 05/19/20 12:00 05/21/20 07:57 Novolog SUBQ 5 unit TIDWM ANNIA Administration Protocol Insulin Glargine 35 unit 05/17/20 21:00 05/20/20 21:29 Lantus Solostar SUBQ 35 unit QPM ANNIA Administration Losartan Potassium 50 mg 05/18/20 09:00 05/21/20 07:58 Cozaar PO 50 mg DAILY ANNIA Administration Polyethylene Glycol 17 gm 05/19/20 07:30 05/21/20 07:58 Miralax PO 17 gm DAILY ANNIA Administration Saccharomyces Boulardii 250 mg 05/20/20 17:00 05/21/20 07:58 Florastor PO 250 mg BIDWM ANNIA Administration Senna 8.6 - 17.2 mg 05/20/20 09:00 05/21/20 07:59 Senokot PO 17.2 mg DAILY ANNIA Administration Sodium Chloride 10 ml 05/17/20 13:36 05/21/20 04:22 Normal Saline Flush 0.9% IVP 10 ml PRN PRN Administration NEEDED PER PROVIDER ORDERS Sodium Chloride 10 ml 05/17/20 17:00 05/21/20 07:59 Normal Saline Flush 0.9% IVP Not Given 0100,0900,1700 ANNIA Wine 187 ml 05/18/20 18:00 05/20/20 17:26 Wine PO 187 ml 1800 ANNIA Administration Zolpidem Tartrate 10 mg 05/17/20 21:00 05/20/20 20:29 Ambien PO 10 mg QPM ANNIA Administration - Lab Result Fish Bone Diagrams: 05/21/20 05:30 05/21/20 05:30 - Additional Planning My Orders: My Active Orders 05/20/20 17:00 Saccharomyces Boulardii [Florastor] 250 mg PO BIDWM 05/21/20 Orthopedics Consult [CONS] Routine lining maker hand Consult [CONS] Routine Social Work Consult [CONS] Routine 05/21/20 10:42 Diabetic Education [RC] ONCE 05/21/20 11:00 Multivitamin W/Minerals [Theragran M] 1 tab PO DAILYWM 05/21/20 Lunch Carb-controlled Diet [DIET] 05/21/20 12:00 Insulin Aspart [NovoLOG] 3 - 11 unit SUBQ 0800,1200,1700,2100 05/22/20 05:00 BMP - BASIC METABOLIC PANEL [CHEM] DAILYLAB CBC - COMP BLD CT W/AUTO DIFF [HEME] DAILYLAB CRP - C-REACTIVE PROTEIN [CHEM] DAILYLAB 05/22/20 08:00 Insulin Glargine [Lantus Solostar] 12 unit SUBQ QDBREAKFAST 05/23/20 05:00 BMP - BASIC METABOLIC PANEL [CHEM] DAILYLAB CBC - COMP BLD CT W/AUTO DIFF [HEME] DAILYLAB CRP - C-REACTIVE PROTEIN [CHEM] DAILYLAB 05/24/20 05:00 BMP - BASIC METABOLIC PANEL [CHEM] DAILYLAB CBC - COMP BLD CT W/AUTO DIFF [HEME] DAILYLAB CRP - C-REACTIVE PROTEIN [CHEM] DAILYLAB 05/25/20 05:00 BMP - BASIC METABOLIC PANEL [CHEM] DAILYLAB CBC - COMP BLD CT W/AUTO DIFF [HEME] DAILYLAB CRP - C-REACTIVE PROTEIN [CHEM] DAILYLAB 05/26/20 05:00 BMP - BASIC METABOLIC PANEL [CHEM] DAILYLAB CBC - COMP BLD CT W/AUTO DIFF [HEME] DAILYLAB CRP - C-REACTIVE PROTEIN [CHEM] DAILYLAB 05/27/20 05:00 BMP - BASIC METABOLIC PANEL [CHEM] DAILYLAB CBC - COMP BLD CT W/AUTO DIFF [HEME] DAILYLAB CRP - C-REACTIVE PROTEIN [CHEM] DAILYLAB Subjective - Subjective Patient Reports: Feeling Better Objective Vital Signs: Vital Signs - 24 hr 05/20/20 05/21/20 05/21/20 16:00 00:00 07:39 Temperature 36.7 C 37.0 C 36.8 C Heart Rate [ 69 66 63 Brachial] Respiratory 14 15 16 Rate Blood Pressure 113/67 109/49 L 114/53 L [Right Brachial artery] O2 Saturation 95 96 93 Oxygen O2 Source Room air I&O (Last 24 Hrs): Intake and Output Totals x24h 05/19/20 05/20/20 05/21/20 23:59 23:59 23:59 Intake Total 2620 2220 680 Balance 2620 2220 680 General: Alert, Oriented x3, Cooperative, No acute distress HEENT: Atraumatic Neck: Supple Lymphatic: no adenopathy Neuro: Alert, Non Focal, Oriented Times 3 Cardiovascular: Regular rate, Normal S1, Normal S2 Respiratory: Chest non-tender, No respiratory distress, Breath sounds nml Abdomen: Normal bowel sounds, Soft, No tenderness - Results Results: Laboratory Results WBC 7.6 x10^3/uL (4.8-10.8) 05/21/20 05:30 RBC 3.68 10^6/uL (4.70-6.10) L 05/21/20 05:30 Hgb 12.1 g/dL (14.0-18.0) L 05/21/20 05:30 Hct 35.6 % (42.0-52.0) L 05/21/20 05:30 MCV 96.7 fL (80.0-94.0) H 05/21/20 05:30 MCH 32.9 pg (27.0-31.0) H 05/21/20 05:30 MCHC 34.0 g/dL (32.0-36.0) 05/21/20 05:30 RDW 11.8 % (12.0-15.0) L 05/21/20 05:30 Plt Count 298 10^3/uL (130-450) 05/21/20 05:30 MPV 8.9 fL (7.4-11.4) 05/21/20 05:30 Neut # (Auto) 4.4 10^3/uL (1.5-6.6) 05/21/20 05:30 Lymph # (Auto) 2.1 10^3/uL (1.5-3.5) 05/21/20 05:30 Mineral # (Auto) 0.7 10^3/uL (0.0-1.0) 05/21/20 05:30 Eos # (Auto) 0.3 10^3/uL (0.0-0.7) 05/21/20 05:30 Baso # (Auto) 0.1 10^3/uL (0.0-0.1) 05/21/20 05:30 Absolute Nucleated RBC 0.00 x10^3/uL 05/21/20 05:30 Nucleated RBC % 0.0 /100WBC 05/21/20 05:30 PT 11.9 secs (9.9-12.6) 05/17/20 14:13 INR 1.1 (0.8-1.2) 05/17/20 14:13 Sodium 135 mmol/L (135-145) 05/21/20 05:30 Potassium 4.0 mmol/L (3.5-5.0) 05/21/20 05:30 Chloride 103 mmol/L (101-111) 05/21/20 05:30 Carbon Dioxide 25 mmol/L (21-32) 05/21/20 05:30 Anion Gap 7.0 (6-13) 05/21/20 05:30 BUN 30 mg/dL (6-20) H 05/21/20 05:30 Creatinine 1.1 mg/dL (0.6-1.2) 05/21/20 05:30 Estimated GFR (MDRD) 65 (>89) L 05/21/20 05:30 Glucose 171 mg/dL (70-100) H 05/21/20 05:30 POC Whole Bld Glucose 269 mg/dL (70 - 100) H 05/21/20 11:12 Estimat Average Glucose 232 mg/dL (70-100) H 05/18/20 05:12 Hemoglobin A1c % 9.7 % (4.27-6.07) H 05/18/20 05:12 Calcium 8.7 mg/dL (8.5-10.3) 05/21/20 05:30 Magnesium 2.0 mg/dL (1.7-2.8) 05/17/20 14:13 Total Bilirubin 0.6 mg/dL (0.2-1.0) 05/17/20 14:13 AST 12 IU/L (10-42) 05/17/20 14:13 ALT 16 IU/L (10-60) 05/17/20 14:13 Alkaline Phosphatase 86 IU/L (42-121) 05/17/20 14:13 Total Protein 8.1 g/dL (6.7-8.2) 05/17/20 14:13 Albumin 3.8 g/dL (3.2-5.5) 05/17/20 14:13 Globulin 4.3 g/dL (2.1-4.2) H 05/17/20 14:13 Albumin/Globulin Ratio 0.9 (1.0-2.2) L 05/17/20 14:13 Urine Color YELLOW 05/18/20 01:20 Urine Clarity CLEAR (CLEAR) 05/18/20 01:20 Urine pH 7.0 PH (5.0-7.5) 05/18/20 01:20 Ur Specific [place] 1.020 (1.002-1.030) 05/18/20 01:20 Urine Protein TRACE mg/dL (NEGATIVE) 05/18/20 01:20 Urine Glucose (UA) >=1000 mg/dL (NEGATIVE) H 05/18/20 01:20 Urine Ketones NEGATIVE mg/dL (NEGATIVE) 05/18/20 01:20 Urine Occult Blood NEGATIVE (NEGATIVE) 05/18/20 01:20 Urine Nitrite NEGATIVE (NEGATIVE) 05/18/20 01:20 Urine Bilirubin NEGATIVE (NEGATIVE) 05/18/20 01:20 Urine Urobilinogen 0.2 (NORMAL) E.U./dL (NORMAL) 05/18/20 01:20 Ur Leukocyte Esterase NEGATIVE (NEGATIVE) 05/18/20 01:20 Urine RBC None Seen /HPF (0-5) 05/18/20 01:20 Urine WBC 0-3 /HPF (0-3) 05/18/20 01:20 Ur Squamous Epith Cells NONE SEEN (<= Few) 05/18/20 01:20 Urine Bacteria None Seen /HPF (None Seen) 05/18/20 01:20 Urine Culture Comments NOT INDICATED 05/18/20 01:20 Coronavirus (PCR) NEGATIVE 05/18/20 10:24 ABX Reporting Has patient been on IV antibiotics over the past 48 hours?: Yes Current Medications - Current Medications Current Medications: Active Medications Acetaminophen (Tylenol) 650 mg PO Q4HR PRN PRN Reason: Pain or Fever > 38C (100.4F) Amlodipine Besylate (Norvasc) 5 mg PO DAILY COUNT INCLUDES THE [facility] Last Admin: 05/21/20 07:58 Dose: 5 mg Documented by: Atorvastatin Calcium (Lipitor) 40 mg PO DAILY COUNT INCLUDES THE [facility] Last Admin: 05/21/20 07:58 Dose: 40 mg Documented by: Diphenhydramine HCl (Benadryl) 25 mg PO QPM COUNT INCLUDES THE [facility] Last Admin: 05/20/20 20:29 Dose: 25 mg Documented by: Docusate Sodium (Colace 250mg Capsule) 250 - 500 mg PO DAILY COUNT INCLUDES THE [facility] Last Admin: 05/21/20 07:58 Dose: 500 mg Documented by: Famotidine (Pepcid) 20 mg PO BID COUNT INCLUDES THE [facility] Last Admin: 05/21/20 07:58 Dose: 20 mg Documented by: Gabapentin (Neurontin) 300 mg PO QID COUNT INCLUDES THE [facility] Last Admin: 05/21/20 07:58 Dose: 300 mg Documented by: Heparin Sodium (Porcine) () 5,000 unit SUBQ BID COUNT INCLUDES THE [facility] Last Admin: 05/21/20 07:50 Dose: 5,000 unit Documented by: Piperacillin Sod/Tazobactam (Sod 3.375 gm/ Sodium Chloride) 100 mls @ 25 mls/hr IV Q8H COUNT INCLUDES THE [facility] Last Infusion: 05/21/20 08:51 Dose: Infused Documented by: Insulin Aspart (Novolog) 5 unit SUBQ TIDWM COUNT INCLUDES THE [facility]; Protocol Last Admin: 05/21/20 07:57 Dose: 5 unit Documented by: Insulin Aspart (Novolog) 3 - 11 unit SUBQ 0800,1200,1700,2100 COUNT INCLUDES THE [facility]; Protocol Insulin Glargine (Lantus Solostar) 35 unit SUBQ QPM COUNT INCLUDES THE [facility] Last Admin: 05/20/20 21:29 Dose: 35 unit Documented by: Insulin Glargine (Lantus Solostar) 12 unit SUBQ QDBREAKFAST COUNT INCLUDES THE [facility] Losartan Potassium (Cozaar) 50 mg PO DAILY COUNT INCLUDES THE [facility] Last Admin: 05/21/20 07:58 Dose: 50 mg Documented by: Multivitamins/Minerals (Theragran M) 1 tab PO DAILYWM COUNT INCLUDES THE [facility] Ondansetron HCl (Zofran Inj) 4 mg IVP Q6HR PRN PRN Reason: Nausea / Vomiting Polyethylene Glycol (Miralax) 17 gm PO DAILY COUNT INCLUDES THE [facility] Last Admin: 05/21/20 07:58 Dose: 17 gm Documented by: Saccharomyces Boulardii (Florastor) 250 mg PO BIDWM COUNT INCLUDES THE [facility] Last Admin: 05/21/20 07:58 Dose: 250 mg Documented by: Senna (Senokot) 8.6 - 17.2 mg PO DAILY COUNT INCLUDES THE [facility] Last Admin: 05/21/20 07:59 Dose: 17.2 mg Documented by: Sodium Chloride (Normal Saline Flush 0.9%) 10 ml IVP PRN PRN PRN Reason: NEEDED PER PROVIDER ORDERS Last Admin: 05/21/20 04:22 Dose: 10 ml Documented by: Sodium Chloride (Normal Saline Flush 0.9%) 10 ml IVP 0100,0900,1700 COUNT INCLUDES THE [facility] Last Admin: 05/21/20 07:59 Dose: Not Given Documented by: Wine (Wine) 187 ml PO 1800 COUNT INCLUDES THE [facility] Last Admin: 05/20/20 17:26 Dose: 187 ml Documented by: Zolpidem Tartrate (Ambien) 10 mg PO QPM COUNT INCLUDES THE [facility] Last Admin: 05/20/20 20:29 Dose: 10 mg Documented by: metFORMIN [Glucophage] 1,500 mg PO DAILY 04/25/15 Atorvastatin [Lipitor] 40 mg PO DAILY 05/17/20 Cephalexin [Keflex] 500 mg PO QID 05/17/20 Gabapentin [Neurontin] 300 mg PO TID 05/17/20 Insulin Glargine,Hum.rec.anlog [Basaglar Kwikpen U-100] 35 units SQ QPM 05/17/20 Losartan Potassium [Cozaar] 50 mg PO DAILY 05/17/20 Zolpidem Tartrate [Ambien] 10 mg PO QPM PRN 05/17/20 amLODIPine [Norvasc] 5 mg PO DAILY 05/17/20 metFORMIN [Glucophage] 1,000 mg PO QPM 05/17/20
[2020-05-21] MEDS: MULTIVITAMIN W/MINERALS TABLET PO SCH (12:31)
[2020-05-21] MEDS: WINE 187 ML BOTTLE PO SCH (17:27)
--- NOTE | 2020-05-21 19:26 | CONSULTATION NOTE ---
DATE OF SERVICE: 05/21/2020 Physician: Espinoza Fields MD ORTHOPEDIC INPATIENT CONSULTATION REFERRING PHYSICIAN: Dr. Ferguson; of the hospitalist service. CHIEF COMPLAINT: "I have a sore on my right foot." HISTORY OF PRESENT ILLNESS: The patient is a 74-year-old active male, diabetic, with rathe r dense peripheral neuropathy in both lower extremities, who was recently admitted for cellulitis and a right medial plantar sore in the forefoot of his right foot. He does not apparently have any evid ence of a deep infection. His main concern now was now that his wound is cleaning up and healing how to prevent this from reoccurring. We have been asked to evaluate him for possible shoe wear adaptat ion. PHYSICAL EXAMINATION: The patient's right foot shows some very mild swelling and some erythema still in the midfoot area, particularly in the area where he has this medial/plantar sore. This sore itse lf probably measures about 2 cm in diameter, is medium in depth, but with a clean granulating bed dev eloping. There is no purulent drainage seen or necrotic tissue that is visible. He has some mild powell rrounding edema and erythema as well. The patient moves his toes satisfactory. He has very dense se nsation of the hypesthesia on inspection as well. ASSESSMENT 1. Slowly healing right forefoot ulceration involving the medial and plantar aspect of the forefoot in the vicinity of the first MTP joint, slowly healing while here in the hospital. 2. Diabetic with dense bilateral lower extremity peripheral neuropathy. PLAN: Talked to the patient at length about taking proper care of his feet. Need to do daily inspec tions to make sure that any new lesions, particularly in the plantar aspect of his feet are detected early and can be taken care of as early as possible as well. Suggested getting a postoperative bunio n shoe that would be an open toed type shoe that would allow for the swelling that he has currently a nd also be able to adapt to his forefoot swelling until it subsides. Unclear whether we would have a nything here at the hospital, but suggested possibly checking with a local mason tender as they may hav e some postoperative bunionectomy shoes there. Once his wounds have healed or the swelling has subsi ded, contacting an emergency medical service manager/machine erector for consideration of custom made total contact shoes for bot h of his feet as a way of minimizing pressure sores in the future for his hypesthetic feet. The mukul ent appears to understand and will seek to try to get the shoe wear as prescribed. TD: 05/21/2020 17:18
[2020-05-21] MEDS: ZOLPIDEM 5 MG TABLET PO SCH (20:52)
[2020-05-21] MEDS: diphenhydrAMINE 25 MG CAPSULE PO SCH (20:52)
[2020-05-21] MEDS: INSULIN GLARGINE 300 UNIT/3 ML PEN SUBQ SCH (21:00)
[2020-05-22] MEDS: SODIUM CHLORIDE FLUSH 0.9% 10 ML SYRINGE IVP SCH ×3 (00:15→16:54)
[2020-05-22 05:51] LABS: BASOPHILS # (AUTO) 0.1 10^3/uL (0.0-0.1); BASOPHILS % (AUTO) 0.8 %; EOSINOPHILS # (AUTO) 0.2 10^3/uL (0.0-0.7); EOSINOPHILS % (AUTO) 3.3 %; HGB - HEMOGLOBIN 11.8 g/dL (14.0-18.0); LYMPHOCYTES # (AUTO) 1.9 10^3/uL (1.5-3.5); LYMPHOCYTES % (AUTO) 28.7 %; MEAN CORPUSCULAR HEMOGLOBIN 32.2 pg (27.0-31.0); MEAN CORPUSCULAR HGB CONC 32.9 g/dL (32.0-36.0); MEAN CORPUSCULAR VOLUME 98.1 fL (80.0-94.0); MEAN PLATELET VOLUME 8.8 fL (7.4-11.4); MONOCYTES # (AUTO) 0.6 10^3/uL (0.0-1.0); MONOCYTES % (AUTO) 9.5 %; NEUTROPHILS # (AUTO) 3.8 10^3/uL (1.5-6.6); NEUTROPHILS % (AUTO) 57.2 %; PLT - PLATELET COUNT 287 10^3/uL (130-450); RED BLOOD COUNT 3.66 10^6/uL (4.70-6.10); RED CELL DISTRIBUTION WIDTH 11.8 % (12.0-15.0); WHITE BLOOD COUNT 6.7 x10^3/uL (4.8-10.8)
[2020-05-22 06:11] LABS: CALCIUM 9.2 mg/dL (8.5-10.3); CREATININE 1.1 mg/dL (0.6-1.2); CRP - C-REACTIVE PROTEIN 3.9 mg/dL (0-1.0)
[2020-05-22] MEDS ORDERED: MAGNESIUM HYDROXIDE 2,400 MG/30 ML UDC PO ONE (07:47)
[2020-05-22] MEDS: INSULIN ASPART 300 UNIT/3 ML PEN SUBQ SCH ×7 (07:48→20:36)
[2020-05-22] MEDS: INSULIN GLARGINE 300 UNIT/3 ML PEN SUBQ SCH ×2 (07:48→20:34)
[2020-05-22] MEDS: MULTIVITAMIN W/MINERALS TABLET PO SCH (07:49)
[2020-05-22] MEDS: SACCHAROMYCES BOULARDII 250 MG CAPSULE PO SCH ×2 (07:49→16:53)
[2020-05-22] MEDS: SENNA 8.6 MG TABLET PO SCH (07:50)
[2020-05-22] MEDS: DOCUSATE SODIUM 250 MG CAPSULE PO SCH (07:50)
[2020-05-22] MEDS: amLODIPine 5 MG TABLET PO SCH (07:50)
[2020-05-22] MEDS: FAMOTIDINE 20 MG TABLET PO SCH (07:50)
[2020-05-22] MEDS: ATORVASTATIN 40 MG TABLET PO SCH (07:51)
[2020-05-22] MEDS: GABAPENTIN 300 MG CAPSULE PO SCH ×4 (07:51→20:30)
[2020-05-22] MEDS: polyethylene glycoL 3350 17 GM PACKET PO SCH (07:51)
[2020-05-22] MEDS: LOSARTAN 50 MG TABLET PO SCH (07:51)
--- NOTE | 2020-05-22 07:54 | PROVIDER PROGRESS NOTE ---
Subjective - Prog Note Date Prog Note Date: 05/22/20 - Subjective Subjective: He reports feeling well. Has no pain. Current Medications - Current Medications Current Medications: Active Medications Acetaminophen (Tylenol) 650 mg PO Q4HR PRN PRN Reason: Pain or Fever > 38C (100.4F) Amlodipine Besylate (Norvasc) 5 mg PO DAILY [facility] Last Admin: 05/22/20 07:50 Dose: 5 mg Documented by: Atorvastatin Calcium (Lipitor) 40 mg PO DAILY [facility] Last Admin: 05/22/20 07:51 Dose: 40 mg Documented by: Diphenhydramine HCl (Benadryl) 25 mg PO QPM [facility] Last Admin: 05/21/20 20:52 Dose: 25 mg Documented by: Docusate Sodium (Colace 250mg Capsule) 250 - 500 mg PO DAILY [facility] Last Admin: 05/22/20 07:50 Dose: 250 mg Documented by: Famotidine (Pepcid) 20 mg PO BID [facility] Last Admin: 05/22/20 07:50 Dose: 20 mg Documented by: Gabapentin (Neurontin) 300 mg PO QID [facility] Last Admin: 05/22/20 07:51 Dose: 300 mg Documented by: Heparin Sodium (Porcine) () 5,000 unit SUBQ BID [facility] Last Admin: 05/22/20 07:56 Dose: 5,000 unit Documented by: Ceftriaxone Sodium 2 gm/ (Sodium Chloride) 100 mls @ 200 mls/hr IV DAILY [facility] Last Admin: 05/22/20 08:30 Dose: 200 mls/hr Documented by: Insulin Aspart (Novolog) 5 unit SUBQ TIDWM [facility]; Protocol Last Admin: 05/22/20 07:48 Dose: 5 unit Documented by: Insulin Aspart (Novolog) 3 - 11 unit SUBQ 0800,1200,1700,2100 [facility]; Protocol Last Admin: 05/22/20 07:49 Dose: Not Given Documented by: Insulin Glargine (Lantus Solostar) 35 unit SUBQ QPM [facility] Last Admin: 05/21/20 21:00 Dose: 35 unit Documented by: Insulin Glargine (Lantus Solostar) 12 unit SUBQ QDBREAKFAST [facility] Last Admin: 05/22/20 07:48 Dose: 12 unit Documented by: Losartan Potassium (Cozaar) 50 mg PO DAILY [facility] Last Admin: 05/22/20 07:51 Dose: 50 mg Documented by: Multivitamins/Minerals (Theragran M) 1 tab PO DAILYWM [facility] Last Admin: 05/22/20 07:49 Dose: 1 tab Documented by: Ondansetron HCl (Zofran Inj) 4 mg IVP Q6HR PRN PRN Reason: Nausea / Vomiting Polyethylene Glycol (Miralax) 17 gm PO DAILY [facility] Last Admin: 05/22/20 07:51 Dose: 17 gm Documented by: Saccharomyces Boulardii (Florastor) 250 mg PO BIDWM [facility] Last Admin: 05/22/20 07:49 Dose: 250 mg Documented by: Senna (Senokot) 8.6 - 17.2 mg PO DAILY [facility] Last Admin: 05/22/20 07:50 Dose: 8.6 mg Documented by: Sodium Chloride (Normal Saline Flush 0.9%) 10 ml IVP PRN PRN PRN Reason: NEEDED PER PROVIDER ORDERS Last Admin: 05/21/20 12:38 Dose: 10 ml Documented by: Sodium Chloride (Normal Saline Flush 0.9%) 10 ml IVP 0100,0900,1700 [facility] Last Admin: 05/22/20 08:30 Dose: 10 ml Documented by: Wine (Wine) 187 ml PO 1800 [facility] Last Admin: 05/21/20 17:27 Dose: 187 ml Documented by: Zolpidem Tartrate (Ambien) 10 mg PO QPM [facility] Last Admin: 05/21/20 20:52 Dose: 10 mg Documented by: metFORMIN [Glucophage] 1,500 mg PO DAILY 04/25/15 Atorvastatin [Lipitor] 40 mg PO DAILY 05/17/20 Cephalexin [Keflex] 500 mg PO QID 05/17/20 Gabapentin [Neurontin] 300 mg PO TID 05/17/20 Insulin Glargine,Hum.rec.anlog [Basaglar Kwikpen U-100] 35 units SQ QPM 05/17/20 Losartan Potassium [Cozaar] 50 mg PO DAILY 05/17/20 Zolpidem Tartrate [Ambien] 10 mg PO QPM PRN 05/17/20 amLODIPine [Norvasc] 5 mg PO DAILY 05/17/20 metFORMIN [Glucophage] 1,000 mg PO QPM 05/17/20 Objective - Vital Signs/Intake & Output Reviewed Vital Signs: Yes Intake & Output: Intake & Output 05/19/20 05/20/20 05/21/20 05/22/20 23:59 23:59 23:59 23:59 Intake Total 2620 2220 1500 730 Balance 2620 2220 1500 730 - Objective General Appearance: positive: No acute distress, Alert Eyes Bilateral: positive: Normal inspection, Conjunctivae nml ENT: positive: ENT inspection nml Neck: positive: Nml inspection Respiratory: positive: No respiratory distress. negative: Wheezes, Rales Cardiovascular: positive: Regular rate & rhythm. negative: Tachycardia Skin: positive: Warm, Dry, Other (Dressing in place over the medial aspect of the right foot. There is minimal surrounding erythema.) Extremities: positive: No pedal edema Neurologic/Psychiatric: positive: Oriented x3 - Lab Results Fish Bones: 05/22/20 05:36 05/22/20 05:36 Other Labs: Lab Results x24hrs 05/22/20 05/22/20 05/22/20 Range/Units 07:26 05:36 05:36 WBC 6.7 (4.8-10.8) x10^3/uL RBC 3.66 L (4.70-6.10) 10^6/uL Hgb 11.8 L (14.0-18.0) g/dL Hct 35.9 L (42.0-52.0) % MCV 98.1 H (80.0-94.0) fL MCH 32.2 H (27.0-31.0) pg MCHC 32.9 (32.0-36.0) g/dL RDW 11.8 L (12.0-15.0) % Plt Count 287 (130-450) 10^3/uL MPV 8.8 (7.4-11.4) fL Neut # (Auto) 3.8 (1.5-6.6) 10^3/uL Lymph # (Auto) 1.9 (1.5-3.5) 10^3/uL [place] # (Auto) 0.6 (0.0-1.0) 10^3/uL Eos # (Auto) 0.2 (0.0-0.7) 10^3/uL Baso # (Auto) 0.1 (0.0-0.1) 10^3/uL Absolute Nucleated RBC 0.00 x10^3/uL Nucleated RBC % 0.0 /100WBC Sodium 139 (135-145) mmol/L Potassium 4.3 (3.5-5.0) mmol/L Chloride 104 (101-111) mmol/L Carbon Dioxide 25 (21-32) mmol/L Anion Gap 10.0 (6-13) BUN 35 H (6-20) mg/dL Creatinine 1.1 (0.6-1.2) mg/dL Estimated GFR (MDRD) 65 L (>89) Glucose 148 H (70-100) mg/dL POC Whole Bld Glucose 138 H (70 - 100) mg/dL Calcium 9.2 (8.5-10.3) mg/dL C-Reactive Protein 3.9 H (0-1.0) mg/dL 05/21/20 05/21/20 05/21/20 Range/Units 20:36 16:26 11:12 WBC (4.8-10.8) x10^3/uL RBC (4.70-6.10) 10^6/uL Hgb (14.0-18.0) g/dL Hct (42.0-52.0) % MCV (80.0-94.0) fL MCH (27.0-31.0) pg MCHC (32.0-36.0) g/dL RDW (12.0-15.0) % Plt Count (130-450) 10^3/uL MPV (7.4-11.4) fL Neut # (Auto) (1.5-6.6) 10^3/uL Lymph # (Auto) (1.5-3.5) 10^3/uL [place] # (Auto) (0.0-1.0) 10^3/uL Eos # (Auto) (0.0-0.7) 10^3/uL Baso # (Auto) (0.0-0.1) 10^3/uL Absolute Nucleated RBC x10^3/uL Nucleated RBC % /100WBC Sodium (135-145) mmol/L Potassium (3.5-5.0) mmol/L Chloride (101-111) mmol/L Carbon Dioxide (21-32) mmol/L Anion Gap (6-13) BUN (6-20) mg/dL Creatinine (0.6-1.2) mg/dL Estimated GFR (MDRD) (>89) Glucose (70-100) mg/dL POC Whole Bld Glucose 301 H 192 H 269 H (70 - 100) mg/dL Calcium (8.5-10.3) mg/dL C-Reactive Protein (0-1.0) mg/dL ABX Reporting Has patient been on IV antibiotics over the past 48 hours?: Yes Assessment/Plan - Problem List (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 They are recommending continued IV antibiotics until at least Sunday. The patient has been on IV Zosyn. Given his wound cultures have been going strep group B both times, we will switch him to ceftriaxone IV daily. Continue IV antibiotics until he is next evaluated by wound care Sunday. Trend CRP. 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 His A1c was nearly 10%. His morning dose of Lantus was increased this morning. We will continue him on this increased dose as well as his evening dose of Lantus. Continue with NovoLog with meals. His blood glucose meter elevated, we will likely increase his NovoLog with meals. Qualifiers: Glycemic state: with hyperglycemia Qualified Code(s): E11.65 - Type 2 diabetes mellitus with hyperglycemia (3) HTN (hypertension) Impression: Blood pressure has been well controlled. Continue his current anti hypertensives. (4) Diabetic peripheral neuropathy associated with type 2 diabetes mellitus Impression: Stable. Continue gabapentin.
[2020-05-22] MEDS: HEPARIN 5,000 UNIT/ML VIAL SUBQ SCH ×2 (07:56→20:32)
[2020-05-22] MEDS: cefTRIAXone 2 GM in SODIUM CHLORIDE 0.9% MINIBAG 100 ML IV SCH (08:30)
[2020-05-22] MEDS: WINE 187 ML BOTTLE PO SCH (17:23)
[2020-05-22] MEDS: diphenhydrAMINE 25 MG CAPSULE PO SCH (20:30)
[2020-05-22] MEDS: ZOLPIDEM 5 MG TABLET PO SCH (20:31)
[2020-05-23] MEDS: SODIUM CHLORIDE FLUSH 0.9% 10 ML SYRINGE IVP SCH ×3 (02:48→17:08)
[2020-05-23 05:56] LABS: BASOPHILS % (AUTO) 0.6 %; EOSINOPHILS # (AUTO) 0.2 10^3/uL (0.0-0.7); EOSINOPHILS % (AUTO) 2.5 %; HGB - HEMOGLOBIN 11.8 g/dL (14.0-18.0); LYMPHOCYTES # (AUTO) 2.1 10^3/uL (1.5-3.5); LYMPHOCYTES % (AUTO) 32.5 %; MEAN CORPUSCULAR HEMOGLOBIN 32.1 pg (27.0-31.0); MEAN CORPUSCULAR HGB CONC 32.8 g/dL (32.0-36.0); MEAN CORPUSCULAR VOLUME 97.8 fL (80.0-94.0); MEAN PLATELET VOLUME 8.8 fL (7.4-11.4); MONOCYTES # (AUTO) 0.6 10^3/uL (0.0-1.0); MONOCYTES % (AUTO) 8.6 %; NEUTROPHILS # (AUTO) 3.5 10^3/uL (1.5-6.6); NEUTROPHILS % (AUTO) 55.5 %; PLT - PLATELET COUNT 320 10^3/uL (130-450); RED BLOOD COUNT 3.68 10^6/uL (4.70-6.10); RED CELL DISTRIBUTION WIDTH 11.9 % (12.0-15.0); WHITE BLOOD COUNT 6.4 x10^3/uL (4.8-10.8)
[2020-05-23 06:16] LABS: CALCIUM 9.2 mg/dL (8.5-10.3)
--- NOTE | 2020-05-23 07:39 | PROVIDER PROGRESS NOTE ---
Subjective - Prog Note Date Prog Note Date: 05/23/20 - Subjective Subjective: He reports doing well. He is wondering if he will be discharged on NovoLog given he is not receiving his Metformin. Current Medications - Current Medications Current Medications: Active Medications Acetaminophen (Tylenol) 650 mg PO Q4HR PRN PRN Reason: Pain or Fever > 38C (100.4F) Amlodipine Besylate (Norvasc) 5 mg PO DAILY [facility] Last Admin: 05/22/20 07:50 Dose: 5 mg Documented by: Atorvastatin Calcium (Lipitor) 40 mg PO DAILY [facility] Last Admin: 05/22/20 07:51 Dose: 40 mg Documented by: Diphenhydramine HCl (Benadryl) 25 mg PO QPM [facility] Last Admin: 05/22/20 20:30 Dose: 25 mg Documented by: Docusate Sodium (Colace 250mg Capsule) 250 - 500 mg PO DAILY [facility] Last Admin: 05/22/20 07:50 Dose: 250 mg Documented by: Gabapentin (Neurontin) 300 mg PO QID [facility] Last Admin: 05/22/20 20:30 Dose: 300 mg Documented by: Heparin Sodium (Porcine) () 5,000 unit SUBQ BID [facility] Last Admin: 05/22/20 20:32 Dose: 5,000 unit Documented by: Ceftriaxone Sodium 2 gm/ (Sodium Chloride) 100 mls @ 200 mls/hr IV DAILY [facility] Last Infusion: 05/22/20 09:00 Dose: Infused Documented by: Insulin Aspart (Novolog) 3 - 11 unit SUBQ 0800,1200,1700,2100 [facility]; Protocol Last Admin: 05/22/20 20:36 Dose: 9 unit Documented by: Insulin Aspart (Novolog) 8 unit SUBQ TIDWM [facility]; Protocol Insulin Glargine (Lantus Solostar) 35 unit SUBQ QPM [facility] Last Admin: 05/22/20 20:34 Dose: 35 unit Documented by: Insulin Glargine (Lantus Solostar) 12 unit SUBQ QDBREAKFAST [facility] Last Admin: 05/22/20 07:48 Dose: 12 unit Documented by: Losartan Potassium (Cozaar) 50 mg PO DAILY [facility] Last Admin: 05/22/20 07:51 Dose: 50 mg Documented by: Multivitamins/Minerals (Theragran M) 1 tab PO DAILYWM [facility] Last Admin: 05/22/20 07:49 Dose: 1 tab Documented by: Ondansetron HCl (Zofran Inj) 4 mg IVP Q6HR PRN PRN Reason: Nausea / Vomiting Polyethylene Glycol (Miralax) 17 gm PO DAILY [facility] Last Admin: 05/22/20 07:51 Dose: 17 gm Documented by: Saccharomyces Boulardii (Florastor) 250 mg PO BIDWM [facility] Last Admin: 05/22/20 16:53 Dose: 250 mg Documented by: Senna (Senokot) 8.6 - 17.2 mg PO DAILY [facility] Last Admin: 05/22/20 07:50 Dose: 8.6 mg Documented by: Sodium Chloride (Normal Saline Flush 0.9%) 10 ml IVP PRN PRN PRN Reason: NEEDED PER PROVIDER ORDERS Last Admin: 05/21/20 12:38 Dose: 10 ml Documented by: Sodium Chloride (Normal Saline Flush 0.9%) 10 ml IVP 0100,0900,1700 [facility] Last Admin: 05/23/20 02:48 Dose: 10 ml Documented by: Wine (Wine) 187 ml PO 1800 [facility] Last Admin: 05/22/20 17:23 Dose: 187 ml Documented by: Zolpidem Tartrate (Ambien) 10 mg PO QPM [facility] Last Admin: 05/22/20 20:31 Dose: 10 mg Documented by: metFORMIN [Glucophage] 1,500 mg PO DAILY 04/25/15 Atorvastatin [Lipitor] 40 mg PO DAILY 05/17/20 Cephalexin [Keflex] 500 mg PO QID 05/17/20 Gabapentin [Neurontin] 300 mg PO TID 05/17/20 Insulin Glargine,Hum.rec.anlog [Basaglar Kwikpen U-100] 35 units SQ QPM 05/17/20 Losartan Potassium [Cozaar] 50 mg PO DAILY 05/17/20 Zolpidem Tartrate [Ambien] 10 mg PO QPM PRN 05/17/20 amLODIPine [Norvasc] 5 mg PO DAILY 05/17/20 metFORMIN [Glucophage] 1,000 mg PO QPM 05/17/20 Objective - Vital Signs/Intake & Output Reviewed Vital Signs: Yes Vital Signs: Vital Signs x48h Temp Pulse Resp BP Pulse Ox 05/23/20 05:43 37.1 C 58 L 16 124/57 L 94 05/23/20 00:00 36.7 C 64 16 142/70 H 95 Intake & Output: Intake & Output 05/20/20 05/21/20 05/22/20 05/23/20 23:59 23:59 23:59 23:59 Intake Total 2220 1500 2806 640 Balance 2220 1500 2806 640 - Objective General Appearance: positive: No acute distress, Alert Eyes Bilateral: positive: Normal inspection ENT: positive: ENT inspection nml Neck: positive: Nml inspection Skin: positive: Warm, Dry, Other ( Dressing is in place over the medial aspect of the right foot. There is still minimal surrounding erythema. There is trace edema over the dorsum of the foot. There is evidence of necrosis centrally.) - Lab Results Fish Bones: 05/23/20 05:50 05/23/20 05:50 Other Labs: Lab Results x24hrs 05/23/20 05/23/20 05/22/20 Range/Units 05:50 05:50 20:27 WBC 6.4 (4.8-10.8) x10^3/uL RBC 3.68 L (4.70-6.10) 10^6/uL Hgb 11.8 L (14.0-18.0) g/dL Hct 36.0 L (42.0-52.0) % MCV 97.8 H (80.0-94.0) fL MCH 32.1 H (27.0-31.0) pg MCHC 32.8 (32.0-36.0) g/dL RDW 11.9 L (12.0-15.0) % Plt Count 320 (130-450) 10^3/uL MPV 8.8 (7.4-11.4) fL Neut # (Auto) 3.5 (1.5-6.6) 10^3/uL Lymph # (Auto) 2.1 (1.5-3.5) 10^3/uL [place] # (Auto) 0.6 (0.0-1.0) 10^3/uL Eos # (Auto) 0.2 (0.0-0.7) 10^3/uL Baso # (Auto) 0.0 (0.0-0.1) 10^3/uL Absolute Nucleated RBC 0.00 x10^3/uL Nucleated RBC % 0.0 /100WBC Sodium 137 (135-145) mmol/L Potassium 4.3 (3.5-5.0) mmol/L Chloride 103 (101-111) mmol/L Carbon Dioxide 24 (21-32) mmol/L Anion Gap 10.0 (6-13) BUN 32 H (6-20) mg/dL Creatinine 1.0 (0.6-1.2) mg/dL Estimated GFR (MDRD) 73 L (>89) Glucose 192 H (70-100) mg/dL POC Whole Bld Glucose 291 H (70 - 100) mg/dL Calcium 9.2 (8.5-10.3) mg/dL C-Reactive Protein 3.0 H (0-1.0) mg/dL 05/22/20 05/22/20 Range/Units 16:28 11:14 WBC (4.8-10.8) x10^3/uL RBC (4.70-6.10) 10^6/uL Hgb (14.0-18.0) g/dL Hct (42.0-52.0) % MCV (80.0-94.0) fL MCH (27.0-31.0) pg MCHC (32.0-36.0) g/dL RDW (12.0-15.0) % Plt Count (130-450) 10^3/uL MPV (7.4-11.4) fL Neut # (Auto) (1.5-6.6) 10^3/uL Lymph # (Auto) (1.5-3.5) 10^3/uL [place] # (Auto) (0.0-1.0) 10^3/uL Eos # (Auto) (0.0-0.7) 10^3/uL Baso # (Auto) (0.0-0.1) 10^3/uL Absolute Nucleated RBC x10^3/uL Nucleated RBC % /100WBC Sodium (135-145) mmol/L Potassium (3.5-5.0) mmol/L Chloride (101-111) mmol/L Carbon Dioxide (21-32) mmol/L Anion Gap (6-13) BUN (6-20) mg/dL Creatinine (0.6-1.2) mg/dL Estimated GFR (MDRD) (>89) Glucose (70-100) mg/dL POC Whole Bld Glucose 190 H 268 H (70 - 100) mg/dL Calcium (8.5-10.3) mg/dL C-Reactive Protein (0-1.0) mg/dL ABX Reporting Has patient been on IV antibiotics over the past 48 hours?: Yes Assessment/Plan - Problem List (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 He is on ceftriaxone which was started yesterday instead of Zosyn as both cultures have grown strep group B. We will continue IV antibiotics till Sunday and then consider oral antibiotics based off wound care evaluation. 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 His blood glucose remains elevated during this hospitalization. We will increase his NovoLog with meals and continue Lantus in the morning and evening. I did inform that he will likely need to be discharged on short acting insulin in addition to his Lantus and Metformin on discharge given his poorly controlled blood glucose at home. Continue carb controlled diet. We will ask staff development educator to see him as well. Qualifiers: Glycemic state: with hyperglycemia Qualified Code(s): E11.65 - Type 2 diabetes mellitus with hyperglycemia (3) HTN (hypertension) Impression: Stable. Continue antihypertensives. (4) Diabetic peripheral neuropathy associated with type 2 diabetes mellitus Impression: Stable. Continue gabapentin.
[2020-05-23] MEDS: INSULIN GLARGINE 300 UNIT/3 ML PEN SUBQ SCH ×2 (08:00→20:42)
[2020-05-23] MEDS: INSULIN ASPART 300 UNIT/3 ML PEN SUBQ SCH ×6 (08:00→20:44)
[2020-05-23] MEDS ORDERED: MAGNESIUM CITRATE 296 ML BOTTLE PO ONE (10:17)
[2020-05-23] MEDS: ATORVASTATIN 40 MG TABLET PO SCH (10:45)
[2020-05-23] MEDS: MULTIVITAMIN W/MINERALS TABLET PO SCH (10:45)
[2020-05-23] MEDS: SACCHAROMYCES BOULARDII 250 MG CAPSULE PO SCH ×2 (10:45→17:08)
[2020-05-23] MEDS: GABAPENTIN 300 MG CAPSULE PO SCH ×4 (10:45→20:45)
[2020-05-23] MEDS: polyethylene glycoL 3350 17 GM PACKET PO SCH (10:46)
[2020-05-23] MEDS: amLODIPine 5 MG TABLET PO SCH (10:46)
[2020-05-23] MEDS: LOSARTAN 50 MG TABLET PO SCH (10:46)
[2020-05-23] MEDS: DOCUSATE SODIUM 250 MG CAPSULE PO SCH (10:47)
[2020-05-23] MEDS: SENNA 8.6 MG TABLET PO SCH (10:47)
[2020-05-23] MEDS: cefTRIAXone 2 GM in SODIUM CHLORIDE 0.9% MINIBAG 100 ML IV SCH (10:48)
[2020-05-23] MEDS: HEPARIN 5,000 UNIT/ML VIAL SUBQ SCH ×2 (11:04→20:40)
[2020-05-23] MEDS: WINE 187 ML BOTTLE PO SCH (17:44)
[2020-05-23] MEDS: diphenhydrAMINE 25 MG CAPSULE PO SCH (20:45)
[2020-05-23] MEDS: ZOLPIDEM 5 MG TABLET PO SCH (20:45)
[2020-05-24] MEDS: SODIUM CHLORIDE FLUSH 0.9% 10 ML SYRINGE IVP SCH ×3 (00:29→16:48)
[2020-05-24 06:01] LABS: BASOPHILS # (AUTO) 0.1 10^3/uL (0.0-0.1); BASOPHILS % (AUTO) 0.7 %; EOSINOPHILS # (AUTO) 0.2 10^3/uL (0.0-0.7); EOSINOPHILS % (AUTO) 2.7 %; HGB - HEMOGLOBIN 12.8 g/dL (14.0-18.0); LYMPHOCYTES # (AUTO) 2.1 10^3/uL (1.5-3.5); LYMPHOCYTES % (AUTO) 30.1 %; MEAN CORPUSCULAR HEMOGLOBIN 32.8 pg (27.0-31.0); MEAN CORPUSCULAR HGB CONC 33.9 g/dL (32.0-36.0); MEAN CORPUSCULAR VOLUME 96.9 fL (80.0-94.0); MEAN PLATELET VOLUME 8.9 fL (7.4-11.4); MONOCYTES # (AUTO) 0.6 10^3/uL (0.0-1.0); MONOCYTES % (AUTO) 8.2 %; NEUTROPHILS # (AUTO) 4.1 10^3/uL (1.5-6.6); NEUTROPHILS % (AUTO) 57.9 %; PLT - PLATELET COUNT 342 10^3/uL (130-450); RED CELL DISTRIBUTION WIDTH 11.8 % (12.0-15.0); WHITE BLOOD COUNT 7.1 x10^3/uL (4.8-10.8)
[2020-05-24 06:21] LABS: CALCIUM 9.4 mg/dL (8.5-10.3); CREATININE 1.1 mg/dL (0.6-1.2); CRP - C-REACTIVE PROTEIN 2.4 mg/dL (0-1.0)
--- NOTE | 2020-05-24 07:13 | PROVIDER PROGRESS NOTE ---
Subjective - Prog Note Date Prog Note Date: 05/24/20 - Subjective Subjective: He is finally able to have a bowel movement today. Otherwise reports doing well. Current Medications - Current Medications Current Medications: Active Medications Acetaminophen (Tylenol) 650 mg PO Q4HR PRN PRN Reason: Pain or Fever > 38C (100.4F) Amlodipine Besylate (Norvasc) 5 mg PO DAILY [facility] Last Admin: 05/23/20 10:46 Dose: 5 mg Documented by: Atorvastatin Calcium (Lipitor) 40 mg PO DAILY [facility] Last Admin: 05/23/20 10:45 Dose: 40 mg Documented by: Diphenhydramine HCl (Benadryl) 25 mg PO QPM [facility] Last Admin: 05/23/20 20:45 Dose: 25 mg Documented by: Docusate Sodium (Colace 250mg Capsule) 250 - 500 mg PO DAILY [facility] Last Admin: 05/23/20 10:47 Dose: 500 mg Documented by: Gabapentin (Neurontin) 300 mg PO QID [facility] Last Admin: 05/23/20 20:45 Dose: 300 mg Documented by: Heparin Sodium (Porcine) () 5,000 unit SUBQ BID [facility] Last Admin: 05/23/20 20:40 Dose: 5,000 unit Documented by: Ceftriaxone Sodium 2 gm/ (Sodium Chloride) 100 mls @ 200 mls/hr IV DAILY [facility] Last Infusion: 05/23/20 12:08 Dose: Infused Documented by: Insulin Aspart (Novolog) 3 - 11 unit SUBQ 0800,1200,1700,2100 [facility]; Protocol Last Admin: 05/23/20 20:44 Dose: 9 unit Documented by: Insulin Aspart (Novolog) 8 unit SUBQ TIDWM [facility]; Protocol Last Admin: 05/23/20 17:06 Dose: 8 unit Documented by: Insulin Glargine (Lantus Solostar) 35 unit SUBQ QPM [facility] Last Admin: 05/23/20 20:42 Dose: 35 unit Documented by: Insulin Glargine (Lantus Solostar) 12 unit SUBQ QDBREAKFAST [facility] Last Admin: 05/23/20 08:00 Dose: 12 unit Documented by: Losartan Potassium (Cozaar) 50 mg PO DAILY [facility] Last Admin: 05/23/20 10:46 Dose: 50 mg Documented by: Multivitamins/Minerals (Theragran M) 1 tab PO DAILYWM [facility] Last Admin: 05/23/20 10:45 Dose: 1 tab Documented by: Ondansetron HCl (Zofran Inj) 4 mg IVP Q6HR PRN PRN Reason: Nausea / Vomiting Polyethylene Glycol (Miralax) 17 gm PO DAILY [facility] Last Admin: 05/23/20 10:46 Dose: 17 gm Documented by: Saccharomyces Boulardii (Florastor) 250 mg PO BIDWM [facility] Last Admin: 05/23/20 17:08 Dose: 250 mg Documented by: Senna (Senokot) 8.6 - 17.2 mg PO DAILY [facility] Last Admin: 05/23/20 10:47 Dose: 17.2 mg Documented by: Sodium Chloride (Normal Saline Flush 0.9%) 10 ml IVP PRN PRN PRN Reason: NEEDED PER PROVIDER ORDERS Last Admin: 05/21/20 12:38 Dose: 10 ml Documented by: Sodium Chloride (Normal Saline Flush 0.9%) 10 ml IVP 0100,0900,1700 [facility] Last Admin: 05/24/20 00:29 Dose: 10 ml Documented by: Wine (Wine) 187 ml PO 1800 [facility] Last Admin: 05/23/20 17:44 Dose: 187 ml Documented by: Zolpidem Tartrate (Ambien) 10 mg PO QPM [facility] Last Admin: 05/23/20 20:45 Dose: 10 mg Documented by: metFORMIN [Glucophage] 1,500 mg PO DAILY 04/25/15 Atorvastatin [Lipitor] 40 mg PO DAILY 05/17/20 Cephalexin [Keflex] 500 mg PO QID 05/17/20 Gabapentin [Neurontin] 300 mg PO TID 05/17/20 Insulin Glargine,Hum.rec.anlog [Basaglar Kwikpen U-100] 35 units SQ QPM 05/17/20 Losartan Potassium [Cozaar] 50 mg PO DAILY 05/17/20 Zolpidem Tartrate [Ambien] 10 mg PO QPM PRN 05/17/20 amLODIPine [Norvasc] 5 mg PO DAILY 05/17/20 metFORMIN [Glucophage] 1,000 mg PO QPM 05/17/20 Objective - Vital Signs/Intake & Output Vital Signs: Vital Signs x48h Temp Pulse Resp BP Pulse Ox 05/24/20 05:50 60 18 132/55 H 96 05/24/20 00:00 37.4 C 60 16 119/84 H 97 Intake & Output: Intake & Output 05/21/20 05/22/20 05/23/20 05/24/20 23:59 23:59 23:59 23:59 Intake Total 1500 2806 2300 Balance 1500 2806 2300 - Objective General Appearance: positive: No acute distress, Alert ENT: positive: ENT inspection nml Neck: positive: Nml inspection Respiratory: positive: No respiratory distress Skin: positive: Other (Dressing is in place over the medial aspect of the right foot. Minimal erythema still present. There is trace edema over the dorsum of the foot. There is evidence of necrosis centrally with ulceration. Minimal purulent drainage.) Extremities: positive: Full ROM - Lab Results Fish Bones: 05/24/20 05:46 05/24/20 05:46 Other Labs: Lab Results x24hrs 05/24/20 05/24/20 05/23/20 Range/Units 05:46 05:46 20:33 WBC 7.1 (4.8-10.8) x10^3/uL RBC 3.90 L (4.70-6.10) 10^6/uL Hgb 12.8 L (14.0-18.0) g/dL Hct 37.8 L (42.0-52.0) % MCV 96.9 H (80.0-94.0) fL MCH 32.8 H (27.0-31.0) pg MCHC 33.9 (32.0-36.0) g/dL RDW 11.8 L (12.0-15.0) % Plt Count 342 (130-450) 10^3/uL MPV 8.9 (7.4-11.4) fL Neut # (Auto) 4.1 (1.5-6.6) 10^3/uL Lymph # (Auto) 2.1 (1.5-3.5) 10^3/uL [place] # (Auto) 0.6 (0.0-1.0) 10^3/uL Eos # (Auto) 0.2 (0.0-0.7) 10^3/uL Baso # (Auto) 0.1 (0.0-0.1) 10^3/uL Absolute Nucleated RBC 0.00 x10^3/uL Nucleated RBC % 0.0 /100WBC Sodium 136 (135-145) mmol/L Potassium 4.3 (3.5-5.0) mmol/L Chloride 101 (101-111) mmol/L Carbon Dioxide 25 (21-32) mmol/L Anion Gap 10.0 (6-13) BUN 33 H (6-20) mg/dL Creatinine 1.1 (0.6-1.2) mg/dL Estimated GFR (MDRD) 65 L (>89) Glucose 206 H (70-100) mg/dL POC Whole Bld Glucose 284 H (70 - 100) mg/dL Calcium 9.4 (8.5-10.3) mg/dL C-Reactive Protein 2.4 H (0-1.0) mg/dL 05/23/20 05/23/20 05/23/20 Range/Units 16:53 11:00 07:41 WBC (4.8-10.8) x10^3/uL RBC (4.70-6.10) 10^6/uL Hgb (14.0-18.0) g/dL Hct (42.0-52.0) % MCV (80.0-94.0) fL MCH (27.0-31.0) pg MCHC (32.0-36.0) g/dL RDW (12.0-15.0) % Plt Count (130-450) 10^3/uL MPV (7.4-11.4) fL Neut # (Auto) (1.5-6.6) 10^3/uL Lymph # (Auto) (1.5-3.5) 10^3/uL [place] # (Auto) (0.0-1.0) 10^3/uL Eos # (Auto) (0.0-0.7) 10^3/uL Baso # (Auto) (0.0-0.1) 10^3/uL Absolute Nucleated RBC x10^3/uL Nucleated RBC % /100WBC Sodium (135-145) mmol/L Potassium (3.5-5.0) mmol/L Chloride (101-111) mmol/L Carbon Dioxide (21-32) mmol/L Anion Gap (6-13) BUN (6-20) mg/dL Creatinine (0.6-1.2) mg/dL Estimated GFR (MDRD) (>89) Glucose (70-100) mg/dL POC Whole Bld Glucose 259 H 290 H 192 H (70 - 100) mg/dL Calcium (8.5-10.3) mg/dL C-Reactive Protein (0-1.0) mg/dL ABX Reporting Has patient been on IV antibiotics over the past 48 hours?: Yes Assessment/Plan - Problem List (1) 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 He was switched to ceftriaxone IV on Sunday morning from [facility] given cultures are growing strep group B. Continue IV antibiotics until seen by wound care before transitioning to oral antibiotics and discharging. MRI did not confirm osteomyelitis. 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 We will increase his morning Lantus and continue the evening dose of Lantus. His NovoLog was increased yesterday and necessary, we will increase this further. Continue carb controlled diet. Qualifiers: Glycemic state: with hyperglycemia Qualified Code(s): E11.65 - Type 2 diabetes mellitus with hyperglycemia (3) HTN (hypertension) Impression: Stable. Continue losartan. (4) Diabetic peripheral neuropathy associated with type 2 diabetes mellitus Impression: Stable. Continue gabapentin.
[2020-05-24] MEDS: INSULIN ASPART 300 UNIT/3 ML PEN SUBQ SCH ×7 (08:00→21:07)
[2020-05-24] MEDS: INSULIN GLARGINE 300 UNIT/3 ML PEN SUBQ SCH ×2 (08:24→21:06)
[2020-05-24] MEDS: MULTIVITAMIN W/MINERALS TABLET PO SCH (08:26)
[2020-05-24] MEDS: SACCHAROMYCES BOULARDII 250 MG CAPSULE PO SCH ×2 (08:26→16:47)
[2020-05-24] MEDS: GABAPENTIN 300 MG CAPSULE PO SCH ×4 (08:28→21:03)
[2020-05-24] MEDS: amLODIPine 5 MG TABLET PO SCH (08:29)
[2020-05-24] MEDS: DOCUSATE SODIUM 250 MG CAPSULE PO SCH (08:30)
[2020-05-24] MEDS: ATORVASTATIN 40 MG TABLET PO SCH (08:31)
[2020-05-24] MEDS: cefTRIAXone 2 GM in SODIUM CHLORIDE 0.9% MINIBAG 100 ML IV SCH (08:34)
[2020-05-24] MEDS: LOSARTAN 50 MG TABLET PO SCH (08:36)
[2020-05-24] MEDS: SENNA 8.6 MG TABLET PO SCH (08:42)
[2020-05-24] MEDS: polyethylene glycoL 3350 17 GM PACKET PO SCH (08:42)
[2020-05-24] MEDS: HEPARIN 5,000 UNIT/ML VIAL SUBQ SCH ×2 (11:44→21:08)
[2020-05-24] MEDS: WINE 187 ML BOTTLE PO SCH (16:47)
[2020-05-24] MEDS: diphenhydrAMINE 25 MG CAPSULE PO SCH (21:03)
[2020-05-24] MEDS: ZOLPIDEM 5 MG TABLET PO SCH (21:06)
[2020-05-25] MEDS: SODIUM CHLORIDE FLUSH 0.9% 10 ML SYRINGE IVP SCH ×4 (01:28→23:48)
[2020-05-25 05:13] LABS: BASOPHILS % (AUTO) 0.6 %; EOSINOPHILS # (AUTO) 0.2 10^3/uL (0.0-0.7); EOSINOPHILS % (AUTO) 2.5 %; HGB - HEMOGLOBIN 11.8 g/dL (14.0-18.0); LYMPHOCYTES # (AUTO) 2.2 10^3/uL (1.5-3.5); LYMPHOCYTES % (AUTO) 33.9 %; MEAN CORPUSCULAR HEMOGLOBIN 32.3 pg (27.0-31.0); MEAN CORPUSCULAR HGB CONC 33.4 g/dL (32.0-36.0); MEAN CORPUSCULAR VOLUME 96.7 fL (80.0-94.0); MEAN PLATELET VOLUME 8.9 fL (7.4-11.4); MONOCYTES # (AUTO) 0.5 10^3/uL (0.0-1.0); MONOCYTES % (AUTO) 7.9 %; NEUTROPHILS # (AUTO) 3.6 10^3/uL (1.5-6.6); NEUTROPHILS % (AUTO) 54.8 %; PLT - PLATELET COUNT 324 10^3/uL (130-450); RED BLOOD COUNT 3.65 10^6/uL (4.70-6.10); RED CELL DISTRIBUTION WIDTH 11.8 % (12.0-15.0); WHITE BLOOD COUNT 6.5 x10^3/uL (4.8-10.8)
[2020-05-25 05:32] LABS: CALCIUM 9.6 mg/dL (8.5-10.3); CREATININE 1.2 mg/dL (0.6-1.2); CRP - C-REACTIVE PROTEIN 2.1 mg/dL (0-1.0)
[2020-05-25] MEDS: INSULIN ASPART 300 UNIT/3 ML PEN SUBQ SCH ×7 (08:00→20:10)
[2020-05-25] MEDS: INSULIN GLARGINE 300 UNIT/3 ML PEN SUBQ SCH ×2 (08:15→20:09)
[2020-05-25] MEDS: GABAPENTIN 300 MG CAPSULE PO SCH ×4 (08:17→20:08)
[2020-05-25] MEDS: DOCUSATE SODIUM 250 MG CAPSULE PO SCH (08:17)
[2020-05-25] MEDS: SACCHAROMYCES BOULARDII 250 MG CAPSULE PO SCH ×2 (08:17→17:04)
[2020-05-25] MEDS: ATORVASTATIN 40 MG TABLET PO SCH (08:18)
[2020-05-25] MEDS: MULTIVITAMIN W/MINERALS TABLET PO SCH (08:18)
[2020-05-25] MEDS: polyethylene glycoL 3350 17 GM PACKET PO SCH (08:18)
[2020-05-25] MEDS: amLODIPine 5 MG TABLET PO SCH (08:18)
[2020-05-25] MEDS: LOSARTAN 50 MG TABLET PO SCH (08:18)
[2020-05-25] MEDS: SENNA 8.6 MG TABLET PO SCH (08:18)
[2020-05-25] MEDS: HEPARIN 5,000 UNIT/ML VIAL SUBQ SCH ×2 (08:26→20:11)
[2020-05-25] MEDS: SODIUM CHLORIDE 0.9% 1,000 ML IV SCH ×2 (08:35→18:02)
[2020-05-25] MEDS: cefTRIAXone 2 GM in SODIUM CHLORIDE 0.9% MINIBAG 100 ML IV SCH (08:37)
[2020-05-25] MEDS: SODIUM CHLORIDE FLUSH 0.9% 10 ML SYRINGE IVP PRN (12:33)
--- NOTE | 2020-05-25 12:43 | WOUND CARE PROGRESS NOTE ---
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 Plan: Continue wound hygiene to include sharp debridement of non-viable tissue. Continue IV antibiotic inpatient until discharge. Wound dressing today with silver hydrofiber, plain foam, and skin sensitive tape. Patient will keep dressing dry and intact and return to the clinic on Sunday this week for follow up and dressing change. Discussed with patient and his RN, Maryjane, discharge planning to include limited weight bearing and recommended use of ortho walking shoe. Patient agrees with the plan. Call to hospitalist NGOZI Gamboa, patient may be transitioned to oral antibiotics and discharged as early as tomorrow. I will try to supply patient with this with a shoe prior to being discharged from the hospital. (2) Diabetes type 2, uncontrolled Qualifiers: Glycemic state: with hyperglycemia Qualified Code(s): E11.65 - Type 2 diabetes mellitus with hyperglycemia Assessment/Plan: Uncontrolled. A1C 9.7%. Plan: Continue to monitor blood glucose, insulin per protocol, and follow the recommended diet. Continue to meet with the diabetic educators after discharge from the hospital. Coordinate weekly wound care with diabetes education. (3) Cellulitis of right lower leg Assessment/Plan: Improving. Plan: Continue IV antibiotics as indicated while hospitalized. [facility] - Results Lab Results: Laboratory Results Sodium 140 mmol/L (135-145) 05/25/20 05:05 Potassium 4.2 mmol/L (3.5-5.0) 05/25/20 05:05 Chloride 102 mmol/L (101-111) 05/25/20 05:05 Carbon Dioxide 25 mmol/L (21-32) 05/25/20 05:05 Anion Gap 13.0 (6-13) 05/25/20 05:05 BUN 37 mg/dL (6-20) H 05/25/20 05:05 Creatinine 1.2 mg/dL (0.6-1.2) 05/25/20 05:05 Glucose 151 mg/dL (70-100) H 05/25/20 05:05 Hemoglobin A1c % 9.7 % (4.27-6.07) H 05/18/20 05:12 Calcium 9.6 mg/dL (8.5-10.3) 05/25/20 05:05 Total Bilirubin 0.6 mg/dL (0.2-1.0) 05/17/20 14:13 AST 12 IU/L (10-42) 05/17/20 14:13 ALT 16 IU/L (10-60) 05/17/20 14:13 Alkaline Phosphatase 86 IU/L (42-121) 05/17/20 14:13 Total Protein 8.1 g/dL (6.7-8.2) 05/17/20 14:13 Albumin 3.8 g/dL (3.2-5.5) 05/17/20 14:13 Globulin 4.3 g/dL (2.1-4.2) H 05/17/20 14:13 Albumin/Globulin Ratio 0.9 (1.0-2.2) L 05/17/20 14:13 05/17/20 14:13 Blood - Right Arm Blood Culture - Final NO GROWTH AFTER 5 DAYS 05/19/20 11:00 Foot - Right Wound Culture - Final Beta Hemolytic Strep Group B - Home Meds/Allergies Allergies No Known Drug Allergies Allergy (Verified 05/17/20 15:10) Home Medications Atorvastatin [Lipitor] 40 mg PO DAILY 05/17/20 [History Confirmed 05/17/20] Cephalexin [Keflex] 500 mg PO QID 05/17/20 [History Confirmed 05/17/20] Gabapentin [Neurontin] 300 mg PO TID 05/17/20 [History Confirmed 05/17/20] Insulin Glargine,Hum.rec.anlog [Basaglar Kwikpen U-100] 35 units SQ QPM 05/17/20 [History Confirmed 05/17/20] Losartan Potassium [Cozaar] 50 mg PO DAILY 05/17/20 [History Confirmed 05/17/20] Zolpidem Tartrate [Ambien] 10 mg PO QPM PRN 05/17/20 [History Confirmed 05/17/20] amLODIPine [Norvasc] 5 mg PO DAILY 05/17/20 [History Confirmed 05/17/20] metFORMIN [Glucophage] 1,000 mg PO QPM 05/17/20 [History Confirmed 05/17/20] - Additional Planning Condition/Complexity: Stable Plan Discussed with:: Patient Time Spent: 31-60 minutes <Diana Yanez - Last Filed: 05/25/20 19:14> - Problem List (1) 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 Qualifiers: Diabetic foot ulcer location: unspecified part of foot Diabetes mellitus type: type 2 Laterality: right Qualified Code(s): E11.621 - Type 2 diabetes mellitus with foot ulcer; 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 (3) Diabetes type 2, uncontrolled Qualifiers: Glycemic state: with hyperglycemia Qualified Code(s): E11.65 - Type 2 diabetes mellitus with hyperglycemia - Results Lab Results: Laboratory Results Sodium 140 mmol/L (135-145) 05/26/20 05:40 Potassium 4.2 mmol/L (3.5-5.0) 05/26/20 05:40 Chloride 103 mmol/L (101-111) 05/26/20 05:40 Carbon Dioxide 25 mmol/L (21-32) 05/26/20 05:40 Anion Gap 12.0 (6-13) 05/26/20 05:40 BUN 32 mg/dL (6-20) H 05/26/20 05:40 Creatinine 1.1 mg/dL (0.6-1.2) 05/26/20 05:40 Glucose 117 mg/dL (70-100) H 05/26/20 05:40 Hemoglobin A1c % 9.7 % (4.27-6.07) H 05/18/20 05:12 Calcium 9.5 mg/dL (8.5-10.3) 05/26/20 05:40 Total Bilirubin 0.6 mg/dL (0.2-1.0) 05/17/20 14:13 AST 12 IU/L (10-42) 05/17/20 14:13 ALT 16 IU/L (10-60) 05/17/20 14:13 Alkaline Phosphatase 86 IU/L (42-121) 05/17/20 14:13 Total Protein 8.1 g/dL (6.7-8.2) 05/17/20 14:13 Albumin 3.8 g/dL (3.2-5.5) 05/17/20 14:13 Globulin 4.3 g/dL (2.1-4.2) H 05/17/20 14:13 Albumin/Globulin Ratio 0.9 (1.0-2.2) L 05/17/20 14:13 05/17/20 14:13 Blood - Right Arm Blood Culture - Final NO GROWTH AFTER 5 DAYS 05/19/20 11:00 Foot - Right Wound Culture - Final Beta Hemolytic Strep Group B - Home Meds/Allergies Allergies No Known Drug Allergies Allergy (Verified 05/17/20 15:10) Home Medications Atorvastatin [Lipitor] 40 mg PO DAILY 05/17/20 [History Confirmed 05/17/20] Gabapentin [Neurontin] 300 mg PO TID 05/17/20 [History Confirmed 05/17/20] Insulin Glargine,Hum.rec.anlog [Basaglar Kwikpen U-100] 35 units SQ QPM 05/17/20 [History Confirmed 05/17/20] Losartan Potassium [Cozaar] 50 mg PO DAILY 05/17/20 [History Confirmed 05/17/20] Zolpidem Tartrate [Ambien] 10 mg PO QPM PRN 05/17/20 [History Confirmed 05/17/20] amLODIPine [Norvasc] 5 mg PO DAILY 05/17/20 [History Confirmed 05/17/20] metFORMIN [Glucophage] 1,000 mg PO QPM 05/17/20 [History Confirmed 05/17/20] <Alejandro Minre - Last Filed: 05/27/20 08:45> Objective General: Alert, Oriented x3, Cooperative Extremities: Other (Decreased erythema. See wound assessment) - Wound Care Assessment Vital Signs Temp Pulse Resp BP Pulse Ox 05/25/20 07:45 37.3 C 57 L 18 130/75 93 Wound Wound Type [dorsal mid-foot] Diabetic ulcer,Neuropathic Wound Type [r distal medial Diabetic ulcer,Neuropathic foot] The wound is located on patients right medial foot over the metatarsophalangeal joint. It measures 3.4 x 3.4 x 1.8 predebridement. The wound is full thickness extending to muscle and tendon. The wound base is 75% slough 25% subcutaneous fat with edges that are attached. There is no undermining or tunneling. There is a moderate exudate without odor. The periwound is dry, calloused and hyperpigmented. The erythema and swelling has greatly decreased. The patient denies pain at this time. <Diana Yanez - Last Filed: 05/25/20 19:14> - Wound Care Assessment Wound Wound Type [dorsal mid-foot] Diabetic ulcer,Neuropathic Wound Type [r distal medial Diabetic ulcer,Neuropathic foot] <Alejandro Miner - Last Filed: 05/27/20 08:45> Subjective - Subjective Patient Reports: Other (Patient expresses concerns about blood glucose and wishes to meet with our diabetic educators. He denies any pain, fevers, chills, nausea or vomiting.) <Diana Yanez - Last Filed: 05/25/20 19:14> Procedure - Procedure Note After informed consent, the wound on right foot and periwound were cleansed, th en 5% topical lidocaine was applied for local anesthesia. Using a 5 mm curette and forceps, the wound was sharply debrided of necrotic skin and subcutaneous tissue including down to viable tissue with minimal bleeding. Subcutaneous fat tissue tendon exposure present. Skin edges were freshened in a similar fashion. Hemostasis was achieved with pressure and time. A new dressing consisting of a silver product with antibiofilm properties was applied. Patient tolerated the procedure well without apparent complications. Appropriate follow up instructions were given. Wound measurements in cm: L x W x D: Pre- and post-debridement measurements: Pre: 3.4 3.4 x 1.8 Post: <Diana Yanez - Last Filed: 05/25/20 19:14> - Procedure Note The depth of the debridement was muscle and fascia. <Alejandro Miner - Last Filed: 05/27/20 08:45>
--- NOTE | 2020-05-25 14:06 | PROVIDER PROGRESS NOTE ---
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 pt is scheduled to have [place] [facility], between the time, pt does not need dressing change until Sunday. (2) Diabetes type 2, uncontrolled Impression: His A1c was 9.7% percent. His blood glucose remains elevated during this hospitalization and poor controlled. We will increase his NovoLog with meals and increase Lantus in the morning and continue evening lantus. I did inform that he will likely need to be discharged on short acting insulin in addition to his Lantus evening and morning, and Metformin on discharge given his poorly controlled blood glucose at home. Continue carb controlled diet. continue process architect to see him. (3) HTN (hypertension) Impression: Stable. Continue antihypertensives. (4) Diabetic peripheral neuropathy associated with type 2 diabetes mellitus Impression: Stable. Continue gabapentin. (3) Diabetes type 2, uncontrolled Qualifiers: Glycemic state: with hyperglycemia Qualified Code(s): E11.65 - Type 2 diabetes mellitus with hyperglycemia - Current Meds Current Meds: Current Medications Generic Name Dose Route Start Last Admin Trade Name Freq PRN Reason Stop Dose Admin Amlodipine Besylate 5 mg 05/18/20 09:00 05/25/20 08:18 Norvasc PO 5 mg DAILY ANNIA Administration Atorvastatin Calcium 40 mg 05/18/20 09:00 05/25/20 08:18 Lipitor PO 40 mg DAILY ANNIA Administration Diphenhydramine HCl 25 mg 05/17/20 21:00 05/24/20 21:03 Benadryl PO 25 mg QPM ANNIA Administration Docusate Sodium 250 - 500 mg 05/20/20 09:00 05/25/20 08:17 Colace 250mg Capsule PO Not Given DAILY ANNIA Gabapentin 300 mg 05/18/20 13:00 05/25/20 12:39 Neurontin PO 300 mg QID ANNIA Administration Heparin Sodium (Porcine) 5,000 unit 05/18/20 09:00 05/25/20 08:26 SUBQ 5,000 unit BID ANNIA Administration Ceftriaxone Sodium 2 gm/ 100 mls @ 200 mls/hr 05/22/20 09:00 05/25/20 09:10 Sodium Chloride IV Infused DAILY ANNIA Infusion Sodium Chloride 1,000 mls @ 100 mls/hr 05/25/20 08:00 05/25/20 12:34 Normal Saline 0.9% IV 05/26/20 03:59 100 mls/hr .Q10H ANNIA Infusion Insulin Aspart 3 - 11 unit 05/21/20 12:00 05/25/20 12:35 Novolog SUBQ 7 unit 0800,1200,1700,2100 ANNIA Administration Protocol Insulin Aspart 8 unit 05/23/20 12:00 05/25/20 12:34 Novolog SUBQ 8 unit TIDWM ANNIA Administration Protocol Insulin Glargine 35 unit 05/17/20 21:00 05/24/20 21:06 Lantus Solostar SUBQ 35 unit QPM ANNIA Administration Insulin Glargine 20 unit 05/24/20 08:00 05/25/20 08:15 Insulin Glargine 300 Unit/3 Ml Pen SUBQ 20 unit QDBREAKFAST ANNIA Administration Losartan Potassium 50 mg 05/18/20 09:00 05/25/20 08:18 Cozaar PO 50 mg DAILY ANNIA Administration Multivitamins/Minerals 1 tab 05/21/20 11:00 05/25/20 08:18 Theragran M PO 1 tab DAILYWM ANNIA Administration Polyethylene Glycol 17 gm 05/19/20 07:30 05/25/20 08:18 Miralax PO Not Given DAILY ANNIA Saccharomyces Boulardii 250 mg 05/20/20 17:00 05/25/20 08:17 Florastor PO 250 mg BIDWM ANNIA Administration Senna 8.6 - 17.2 mg 05/20/20 09:00 05/25/20 08:18 Senokot PO Not Given DAILY ANNIA Sodium Chloride 10 ml 05/17/20 13:36 05/25/20 12:33 Normal Saline Flush 0.9% IVP 10 ml PRN PRN Administration NEEDED PER PROVIDER ORDERS Sodium Chloride 10 ml 05/17/20 17:00 05/25/20 08:18 Normal Saline Flush 0.9% IVP 10 ml 0100,0900,1700 ANNIA Administration Wine 187 ml 05/18/20 18:00 05/24/20 16:47 Wine PO 187 ml 1800 ANNIA Administration Zolpidem Tartrate 10 mg 05/17/20 21:00 05/24/20 21:06 Ambien PO 10 mg QPM ANNIA Administration - Lab Result Fish Bone Diagrams: 05/25/20 05:05 05/25/20 05:05 - Additional Planning My Orders: My Active Orders 05/25/20 primer expeditor and drier Consult [CONS] Routine 05/25/20 08:00 Sodium Chloride 0.9% [Normal Saline 0.9%] 1,000 ml IV 100 mls/hr 05/25/20 13:58 Diabetic Education [RC] ONCE 05/26/20 05:00 BMP - BASIC METABOLIC PANEL [CHEM] DAILYLAB CBC - COMP BLD CT W/AUTO DIFF [HEME] DAILYLAB CRP - C-REACTIVE PROTEIN [CHEM] DAILYLAB 05/27/20 05:00 BMP - BASIC METABOLIC PANEL [CHEM] DAILYLAB CBC - COMP BLD CT W/AUTO DIFF [HEME] DAILYLAB CRP - C-REACTIVE PROTEIN [CHEM] DAILYLAB Subjective - Subjective Patient Reports: Feeling Better Objective Vital Signs: Vital Signs - 24 hr 05/24/20 05/25/20 05/25/20 15:49 00:00 07:45 Temperature 37.4 C 37.3 C 37.3 C Heart Rate [ 63 64 57 L Brachial] Respiratory 18 16 18 Rate Blood Pressure 105/49 L [Left Brachial artery] Blood Pressure 101/76 130/75 [Right Brachial artery] O2 Saturation 98 98 93 Oxygen O2 Source Room air I&O (Last 24 Hrs): Intake and Output Totals x24h 05/23/20 05/24/20 05/25/20 23:59 23:59 23:59 Intake Total 2300 1620 1784.999 Balance 2300 1620 1784.999 General: Alert, Oriented x3, Cooperative, No acute distress HEENT: Atraumatic Neck: Supple Lymphatic: no adenopathy Neuro: Alert, Non Focal, Oriented Times 3 Cardiovascular: Regular rate, Normal S1, Normal S2 Respiratory: Chest non-tender, No respiratory distress, Breath sounds nml Abdomen: Normal bowel sounds, Soft, No tenderness Extremities: No clubbing, No edema, No tenderness/swelling, Other (pt's around ulcer cellulitis was resolved, there is no swelling, erthema.) - Results Results: Laboratory Results WBC 6.5 x10^3/uL (4.8-10.8) 05/25/20 05:05 RBC 3.65 10^6/uL (4.70-6.10) L 05/25/20 05:05 Hgb 11.8 g/dL (14.0-18.0) L 05/25/20 05:05 Hct 35.3 % (42.0-52.0) L 05/25/20 05:05 MCV 96.7 fL (80.0-94.0) H 05/25/20 05:05 MCH 32.3 pg (27.0-31.0) H 05/25/20 05:05 MCHC 33.4 g/dL (32.0-36.0) 05/25/20 05:05 RDW 11.8 % (12.0-15.0) L 05/25/20 05:05 Plt Count 324 10^3/uL (130-450) 05/25/20 05:05 MPV 8.9 fL (7.4-11.4) 05/25/20 05:05 Neut # (Auto) 3.6 10^3/uL (1.5-6.6) 05/25/20 05:05 Lymph # (Auto) 2.2 10^3/uL (1.5-3.5) 05/25/20 05:05 [place] # (Auto) 0.5 10^3/uL (0.0-1.0) 05/25/20 05:05 Eos # (Auto) 0.2 10^3/uL (0.0-0.7) 05/25/20 05:05 Baso # (Auto) 0.0 10^3/uL (0.0-0.1) 05/25/20 05:05 Absolute Nucleated RBC 0.00 x10^3/uL 05/25/20 05:05 Nucleated RBC % 0.0 /100WBC 05/25/20 05:05 PT 11.9 secs (9.9-12.6) 05/17/20 14:13 INR 1.1 (0.8-1.2) 05/17/20 14:13 Sodium 140 mmol/L (135-145) 05/25/20 05:05 Potassium 4.2 mmol/L (3.5-5.0) 05/25/20 05:05 Chloride 102 mmol/L (101-111) 05/25/20 05:05 Carbon Dioxide 25 mmol/L (21-32) 05/25/20 05:05 Anion Gap 13.0 (6-13) 05/25/20 05:05 BUN 37 mg/dL (6-20) H 05/25/20 05:05 Creatinine 1.2 mg/dL (0.6-1.2) 05/25/20 05:05 Estimated GFR (MDRD) 59 (>89) L 05/25/20 05:05 Glucose 151 mg/dL (70-100) H 05/25/20 05:05 POC Whole Bld Glucose 226 mg/dL (70 - 100) H 05/25/20 11:00 Estimat Average Glucose 232 mg/dL (70-100) H 05/18/20 05:12 Hemoglobin A1c % 9.7 % (4.27-6.07) H 05/18/20 05:12 Calcium 9.6 mg/dL (8.5-10.3) 05/25/20 05:05 Magnesium 2.0 mg/dL (1.7-2.8) 05/17/20 14:13 Total Bilirubin 0.6 mg/dL (0.2-1.0) 05/17/20 14:13 AST 12 IU/L (10-42) 05/17/20 14:13 ALT 16 IU/L (10-60) 05/17/20 14:13 Alkaline Phosphatase 86 IU/L (42-121) 05/17/20 14:13 C-Reactive Protein 2.1 mg/dL (0-1.0) H 05/25/20 05:05 Total Protein 8.1 g/dL (6.7-8.2) 05/17/20 14:13 Albumin 3.8 g/dL (3.2-5.5) 05/17/20 14:13 Globulin 4.3 g/dL (2.1-4.2) H 05/17/20 14:13 Albumin/Globulin Ratio 0.9 (1.0-2.2) L 05/17/20 14:13 Urine Color YELLOW 05/18/20 01:20 Urine Clarity CLEAR (CLEAR) 05/18/20 01:20 Urine pH 7.0 PH (5.0-7.5) 05/18/20 01:20 Ur Specific [place] 1.020 (1.002-1.030) 05/18/20 01:20 Urine Protein TRACE mg/dL (NEGATIVE) 05/18/20 01:20 Urine Glucose (UA) >=1000 mg/dL (NEGATIVE) H 05/18/20 01:20 Urine Ketones NEGATIVE mg/dL (NEGATIVE) 05/18/20 01:20 Urine Occult Blood NEGATIVE (NEGATIVE) 05/18/20 01:20 Urine Nitrite NEGATIVE (NEGATIVE) 05/18/20 01:20 Urine Bilirubin NEGATIVE (NEGATIVE) 05/18/20 01:20 Urine Urobilinogen 0.2 (NORMAL) E.U./dL (NORMAL) 05/18/20 01:20 Ur Leukocyte Esterase NEGATIVE (NEGATIVE) 05/18/20 01:20 Urine RBC None Seen /HPF (0-5) 05/18/20 01:20 Urine WBC 0-3 /HPF (0-3) 05/18/20 01:20 Ur Squamous Epith Cells NONE SEEN (<= Few) 05/18/20 01:20 Urine Bacteria None Seen /HPF (None Seen) 05/18/20 01:20 Urine Culture Comments NOT INDICATED 05/18/20 01:20 Coronavirus (PCR) NEGATIVE 05/18/20 10:24 ABX Reporting Has patient been on IV antibiotics over the past 48 hours?: Yes Current Medications - Current Medications Current Medications: Active Medications Acetaminophen (Tylenol) 650 mg PO Q4HR PRN PRN Reason: Pain or Fever > 38C (100.4F) Amlodipine Besylate (Norvasc) 5 mg PO DAILY [facility] Last Admin: 05/25/20 08:18 Dose: 5 mg Documented by: Atorvastatin Calcium (Lipitor) 40 mg PO DAILY [facility] Last Admin: 05/25/20 08:18 Dose: 40 mg Documented by: Diphenhydramine HCl (Benadryl) 25 mg PO QPM [facility] Last Admin: 05/24/20 21:03 Dose: 25 mg Documented by: Docusate Sodium (Colace 250mg Capsule) 250 - 500 mg PO DAILY [facility] Last Admin: 05/25/20 08:17 Dose: Not Given Documented by: Gabapentin (Neurontin) 300 mg PO QID [facility] Last Admin: 05/25/20 12:39 Dose: 300 mg Documented by: Heparin Sodium (Porcine) () 5,000 unit SUBQ BID [facility] Last Admin: 05/25/20 08:26 Dose: 5,000 unit Documented by: Ceftriaxone Sodium 2 gm/ (Sodium Chloride) 100 mls @ 200 mls/hr IV DAILY [facility] Last Infusion: 05/25/20 09:10 Dose: Infused Documented by: Sodium Chloride (Normal Saline 0.9%) 1,000 mls @ 100 mls/hr IV .Q10H [facility] Stop: 05/26/20 03:59 Last Infusion: 05/25/20 12:34 Dose: 100 mls/hr Documented by: Insulin Aspart (Novolog) 3 - 11 unit SUBQ 0800,1200,1700,2100 [facility]; Protocol Last Admin: 05/25/20 12:35 Dose: 7 unit Documented by: Insulin Aspart (Novolog) 8 unit SUBQ TIDWM [facility]; Protocol Last Admin: 05/25/20 12:34 Dose: 8 unit Documented by: Insulin Glargine (Lantus Solostar) 35 unit SUBQ QPM [facility] Last Admin: 05/24/20 21:06 Dose: 35 unit Documented by: Insulin Glargine (Insulin Glargine 300 Unit/3 Ml Pen) 20 unit SUBQ QDBREAKFAST [facility] Last Admin: 05/25/20 08:15 Dose: 20 unit Documented by: Losartan Potassium (Cozaar) 50 mg PO DAILY [facility] Last Admin: 05/25/20 08:18 Dose: 50 mg Documented by: Multivitamins/Minerals (Theragran M) 1 tab PO DAILYWM [facility] Last Admin: 05/25/20 08:18 Dose: 1 tab Documented by: Ondansetron HCl (Zofran Inj) 4 mg IVP Q6HR PRN PRN Reason: Nausea / Vomiting Polyethylene Glycol (Miralax) 17 gm PO DAILY [facility] Last Admin: 05/25/20 08:18 Dose: Not Given Documented by: Saccharomyces Boulardii (Florastor) 250 mg PO BIDWM [facility] Last Admin: 05/25/20 08:17 Dose: 250 mg Documented by: Senna (Senokot) 8.6 - 17.2 mg PO DAILY [facility] Last Admin: 05/25/20 08:18 Dose: Not Given Documented by: Sodium Chloride (Normal Saline Flush 0.9%) 10 ml IVP PRN PRN PRN Reason: NEEDED PER PROVIDER ORDERS Last Admin: 05/25/20 12:33 Dose: 10 ml Documented by: Sodium Chloride (Normal Saline Flush 0.9%) 10 ml IVP 0100,0900,1700 [facility] Last Admin: 05/25/20 08:18 Dose: 10 ml Documented by: Wine (Wine) 187 ml PO 1800 [facility] Last Admin: 05/24/20 16:47 Dose: 187 ml Documented by: Zolpidem Tartrate (Ambien) 10 mg PO QPM [facility] Last Admin: 05/24/20 21:06 Dose: 10 mg Documented by: metFORMIN [Glucophage] 1,500 mg PO DAILY 04/25/15 Atorvastatin [Lipitor] 40 mg PO DAILY 05/17/20 Cephalexin [Keflex] 500 mg PO QID 05/17/20 Gabapentin [Neurontin] 300 mg PO TID 05/17/20 Insulin Glargine,Hum.rec.anlog [Basaglar Kwikpen U-100] 35 units SQ QPM 05/17/20 Losartan Potassium [Cozaar] 50 mg PO DAILY 05/17/20 Zolpidem Tartrate [Ambien] 10 mg PO QPM PRN 05/17/20 amLODIPine [Norvasc] 5 mg PO DAILY 05/17/20 metFORMIN [Glucophage] 1,000 mg PO QPM 05/17/20
[2020-05-25] MEDS: WINE 187 ML BOTTLE PO SCH (17:04)
[2020-05-25] MEDS: ZOLPIDEM 5 MG TABLET PO SCH (20:08)
[2020-05-25] MEDS: diphenhydrAMINE 25 MG CAPSULE PO SCH (20:08)
[2020-05-26 05:54] LABS: BASOPHILS % (AUTO) 0.6 %; EOSINOPHILS # (AUTO) 0.2 10^3/uL (0.0-0.7); EOSINOPHILS % (AUTO) 2.3 %; HGB - HEMOGLOBIN 11.8 g/dL (14.0-18.0); LYMPHOCYTES # (AUTO) 2.3 10^3/uL (1.5-3.5); LYMPHOCYTES % (AUTO) 32.3 %; MEAN CORPUSCULAR HEMOGLOBIN 32.2 pg (27.0-31.0); MEAN CORPUSCULAR HGB CONC 33.1 g/dL (32.0-36.0); MEAN CORPUSCULAR VOLUME 97.5 fL (80.0-94.0); MONOCYTES # (AUTO) 0.6 10^3/uL (0.0-1.0); MONOCYTES % (AUTO) 8.2 %; NEUTROPHILS # (AUTO) 3.9 10^3/uL (1.5-6.6); NEUTROPHILS % (AUTO) 56.3 %; PLT - PLATELET COUNT 329 10^3/uL (130-450); RED BLOOD COUNT 3.66 10^6/uL (4.70-6.10); RED CELL DISTRIBUTION WIDTH 11.8 % (12.0-15.0)
[2020-05-26 06:16] LABS: CALCIUM 9.5 mg/dL (8.5-10.3); CREATININE 1.1 mg/dL (0.6-1.2); CRP - C-REACTIVE PROTEIN 1.7 mg/dL (0-1.0)
[2020-05-26 07:46] VITALS: BP 124/65
[2020-05-26] MEDS: INSULIN ASPART 300 UNIT/3 ML PEN SUBQ SCH ×4 (08:19→12:24)
[2020-05-26] MEDS: INSULIN GLARGINE 300 UNIT/3 ML PEN SUBQ SCH (08:20)
[2020-05-26] MEDS: GABAPENTIN 300 MG CAPSULE PO SCH ×2 (08:24→12:26)
[2020-05-26] MEDS: MULTIVITAMIN W/MINERALS TABLET PO SCH (08:24)
[2020-05-26] MEDS: amLODIPine 5 MG TABLET PO SCH (08:24)
[2020-05-26] MEDS: DOCUSATE SODIUM 250 MG CAPSULE PO SCH (08:24)
[2020-05-26] MEDS: LOSARTAN 50 MG TABLET PO SCH (08:24)
[2020-05-26] MEDS: SACCHAROMYCES BOULARDII 250 MG CAPSULE PO SCH (08:24)
[2020-05-26] MEDS: ATORVASTATIN 40 MG TABLET PO SCH (08:24)
[2020-05-26] MEDS: polyethylene glycoL 3350 17 GM PACKET PO SCH (08:24)
[2020-05-26] MEDS: SODIUM CHLORIDE FLUSH 0.9% 10 ML SYRINGE IVP SCH (08:25)
[2020-05-26] MEDS: SENNA 8.6 MG TABLET PO SCH (08:25)
[2020-05-26] MEDS: HEPARIN 5,000 UNIT/ML VIAL SUBQ SCH (08:28)
--- NOTE | 2020-05-26 11:38 | Discharge Plan ---
Discharge Plan Problem Reviewed?: Yes Disposition: Home, Self Care Condition: Stable Prescriptions: Lancets [Blood Lancets] 1 each QID #100 each cefUROXime axetiL [Ceftin] 500 mg PO BID #20 tablet Saccharomyces Boulardii [Florastor] 250 mg PO BIDWM #20 capsule Blood-Glucose Meter [Glucometer] 1 each QID #1 each Blood Sugar Diagnostic [Glucometer Strips] 1 each QID #100 strip Insulin Glargine [Lantus Solostar] 20 unit SUBQ QDBREAKFAST #5 pen Insulin Aspart [NovoLOG] 3 - 11 unit SUBQ 0800,1200,1700,2100 #5 pen Multivitamin W/Minerals [Theragran M] 1 tab PO DAILYWM #30 tablet Diet: Diabetic Activity Restrictions: Activity as Tolerated Shower Restrictions: No (fall precaution,followup wound care instruction) Instruction Topics: Cefuroxime tablets, Diabetes Keep Feet Healthy, Diabetes Treat Severe Foot Infecs, Diabetic Foot Ulcer Dc, Hyperglycemia, Diabetes [employer] Executive Producer Complications, Diabetes Carbs, Hypoglycemia, Diabetes Low Blood Sugar Ch, Blood Sugar Low Ch, Diabetes Type 2 Oral Meds Health Concerns: diabetes ulcer, diabetes glucose control Plan of Treatment: you are prescribed antibiotics to continue your treatment course, you may keep your ulcer dressing and followup with your wound care provider at this Sunday, continue to wear your boot. You are prescribed new insulin with slide scale and device, you may followup with perioperative educator instruction, followup with prevention of hypoglycemia instruction as well. you may followup with your PCP continue management of your diabetes. Control of your diabetes is very important for control of your diabetes foot infection. Care Goals: stabilization and improvement/resolve of your medical conditions. Assessment: discussed the care plan with you, you understood and agreed. Additional Instructions or Follow Up instructions: You may followup with your PCP in one week, followup with [facility] wound care in this Sunday. Should your symptoms return or worsen, you may present ER or call 911 for help. Follow-Up Care: [facility] - Wound/Ostomy, [facility] - Diabetes Ed No Smoking: If you smoke, Please STOP! Call for help.
--- NOTE | 2020-05-26 12:02 | DISCHARGE SUMMARY ---
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 Miner evaluated and treated patient, and wound care provider report his wound has significant improvement, it is the time pt can be planned to d/c on PO antibiotics. Then pt is scheduled to have this [place] [facility], between the time, pt does not need dressing change until Sunday per wound provider recommend. pt was informed these information and he state he will followup the appointment on Sunday. Discussed that antibiotics with Dr. Miner, patient is prescribed Ceftin twice daily, and followup with [facility] for wound care. [facility] already had pt's wound care schedule and plan, pt was informed the wound care plan. (2) Diabetes type 2, uncontrolled His A1c was 9.7% percent at admission. pt's diabetes was poor controlled. According to pt's management in the hospital, add NovoLog of slide scale with meals and add Lantus in the morning and continue his home evening lantus, and continue his home Metformin as well. Patient had consumer educator consult and education, advised patient continue have consult for his diabetic control including hypoglycemia prevention, pt state he understood. pt also is prescribed strips, lancet, and glycometer, and morning Lantus. advise pt followup wit his PCP in one week, continue his DM management. (3) HTN (hypertension) Stable. (4) Diabetic peripheral neuropathy associated with type 2 diabetes mellitus Stable. 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 Patient was also saw by Dr. Miner in [facility] wound center today. Dr. Miner had evaluation for pt and did deep debridement procedure for patient, and made recommendation to patient direct admitted for intravenous antibiotics. - CONSULTS | PROCEDURES Consultations: Dr. Alejandro Miner Procedures: [facility] wound care - HOSPITAL COURSE Hospital Course: Patient was admitted for diabetic right foot wound infection. Patient was directed admitted from [facility]. Patient was also found uncontrolled diabetic. MRI of right foot does not suggest osteomyelitis. Wound culture show beta- hemolytic group B bacterial infection. patient was treated with intravenous antibiotics Rocephin, Continue to have wound care in [facility]. After pt was treated in hospital and had [facility] [place] as well, wound care provider advise pt's wound have great improvement and pt can be d/c with oral antibioti cs. [facility] [place] also had the care plan for pt, they can see pt on this Sunday, between d/c to Sunday, pt does not need dressing change. pt's diabetes was poor controlled in home. According to pt's management in the hospital, add NovoLog of slide scale with meals and add Lantus in the morning and continue his home evening lantus, and continue his home Metformin as well. Patient had consumer educator consult and education, advised patient continue have consult for his diabetic control including hypoglycemia prevention, pt state he understood. pt also is prescribed strips, lancet, and glycometer, and morning Lantus. advise pt followup wit his PCP in one week, continue his DM management. - ALLERGIES Allergies/Adverse Reactions: Allergies Allergy/AdvReac Type Severity Reaction Status Date / Time No Known Drug Allergies Allergy Verified 05/17/20 15:10 - MEDICATIONS Home Medications: Ambulatory Orders Medication Instructions Recorded Confirmed metFORMIN [Glucophage] 1,500 mg PO DAILY 04/25/15 05/17/20 Atorvastatin [Lipitor] 40 mg PO DAILY 05/17/20 05/17/20 Gabapentin [Neurontin] 300 mg PO TID 05/17/20 05/17/20 Insulin Glargine,Hum.rec.anlog 35 units SQ QPM 05/17/20 05/17/20 [Basaglar Kwikpen U-100] Losartan Potassium [Cozaar] 50 mg PO DAILY 05/17/20 05/17/20 Zolpidem Tartrate [Ambien] 10 mg PO QPM PRN 05/17/20 05/17/20 amLODIPine [Norvasc] 5 mg PO DAILY 05/17/20 05/17/20 metFORMIN [Glucophage] 1,000 mg PO QPM 05/17/20 05/17/20 Blood Sugar Diagnostic [Glucometer 1 each QID #100 strip 05/26/20 Strips] Blood-Glucose Meter [Glucometer] 1 each QID #1 each 05/26/20 Insulin Aspart [NovoLOG] 3 - 11 unit SUBQ 05/26/20 0800,1200,1700,2100 #5 pen Insulin Glargine [Lantus Solostar] 20 unit SUBQ QDBREAKFAST #5 pen 05/26/20 Insulin Glargine [Lantus Solostar] 35 unit SUBQ QPM pen 05/26/20 Lancets [Blood Lancets] 1 each MC QID #100 each 05/26/20 Multivitamin W/Minerals [Theragran 1 tab PO DAILYWM #30 tablet 05/26/20 M] Saccharomyces Boulardii [Florastor] 250 mg PO BIDWM #20 capsule 05/26/20 cefUROXime axetiL [Ceftin] 500 mg PO BID #20 tablet 05/26/20 - PHYSICAL EXAM AT DISCHARGE General Appearance: positive: No acute distress, Alert. negative: Lethargic Eyes Bilateral: positive: Normal inspection, PERRL, No lid inflammation ENT: positive: ENT inspection nml, No signs of dehydration. negative: Purulent nasal drainage Neck: positive: Nml inspection, Thyroid nml, No JVD, Trachea midline. negative: Thyromegaly, Tracheal deviation Respiratory: positive: Chest non-tender, No respiratory distress, Breath sounds nml. negative: Wheezes, Rales, Rhonchi Cardiovascular: positive: Regular rate & rhythm, No murmur. negative: Tachycardia, Bradycardia, Systolic murmur, Diastolic murmur Peripheral Pulses: positive: 2+ Abdomen: positive: Non-tender, Nml bowel sounds, No distention. negative: Tenderness, Guarding, Rebound Back: positive: Nml inspection. negative: CVA tenderness (R), CVA tenderness (L) Extremities: positive: Non-tender, Full ROM, Other. negative: Pedal edema, Joint swelling (right foot cellulitis was resolved. wound site was covered by dressing, there is no drainage, swelling. ) Neurologic/Psychiatric: positive: Oriented x3, Motor nml, Sensation nml, Mood/affect nml. negative: Weakness, Sensory loss, Facial droop, Slurred/abnml speech, Depressed mood/affect - LABS Result Diagrams: 05/26/20 05:40 05/26/20 05:40 - FOLLOW UP Follow Up: you are prescribed antibiotics to continue your treatment course, you may keep your ulcer dressing and followup with your wound care provider at this Sunday, continue to wear your boot. You are prescribed new insulin with slide scale and device, you may followup with hospice educator instruction, followup with prevention of hypoglycemia instruction as well. you may followup with your PCP continue management of your diabetes. Control of your diabetes is very important for control of your diabetes foot infection. You may followup with your PCP in one week, followup with [facility] wound care in this Sunday, then followup with [facility] schedule. Should your symptoms return or worsen, you may present ER or call 911 for help. - TIME SPENT Time Spent in Discharge (Minutes): 30"
== END 2020-05-26 13:00 | disposition home or self-care (01) | DRG 623 ==
LOC: MS2 13:06
PROVIDERS: ADMIT Internal Medicine; ATTEND Nurse Practitioner Gerontology
PROC: 0KBV0ZZ Excision of Right Foot Muscle, Open Approach (ICD-10-PCS; principal; 2020-05-17)
PROC: 0KBV0ZZ Excision of Right Foot Muscle, Open Approach (ICD-10-PCS; 2020-05-21)
PROC: 0JBQ0ZZ Excision of Right Foot Subcutaneous Tissue and Fascia, Open Approach (ICD-10-PCS; 2020-05-25)
DX: E11.621 Type 2 diabetes mellitus with foot ulcer (principal); L03.115 Cellulitis of right lower limb; L97.513 Non-pressure chronic ulcer of other part of right foot with necrosis of muscle; B95.1 Streptococcus, group B, as the cause of diseases classified elsewhere; E11.65 Type 2 diabetes mellitus with hyperglycemia; E11.42 Type 2 diabetes mellitus with diabetic polyneuropathy; E11.51 Type 2 diabetes mellitus with diabetic peripheral angiopathy without gangrene; I10 Essential (primary) hypertension; E78.5 Hyperlipidemia, unspecified; G47.00 Insomnia, unspecified; I83.91 Asymptomatic varicose veins of right lower extremity; D64.9 Anemia, unspecified; R79.89 Other specified abnormal findings of blood chemistry; Z86.79 Personal history of other diseases of the circulatory system; Z79.84 Long term (current) use of oral hypoglycemic drugs; Z79.1 Long term (current) use of non-steroidal anti-inflammatories (NSAID); Z79.899 Other long term (current) drug therapy; Z91.19 Patient's noncompliance with other medical treatment and regimen; Z72.89 Other problems related to lifestyle
CPT/HCPCS: 36415; 71045; 73718; 80048; 80053; 81001; 83036; 83735; 85025; 85610; 86140; 87040; 87070; 87077; 87205; 93005; A9270; J1815; U0004; 87086

== ENCOUNTER 2020-07-09 08:33 | Outpatient (CLI) | payer MEDICARE, OTHER ==
--- NOTE | 2020-07-09 12:46 | Ultrasound Report ---
PROCEDURE: Duplex Lwr Ext Arterial RT INDICATIONS: ULCER OF FOOT, DM TECHNIQUE: Color and pulse Doppler interrogation was performed of the right lower extremity arterial system, wit h image documentation. COMPARISON: None FINDINGS: Common femoral artery: 95 cm/sec, with triphasic flow. Deep femoral artery: 81 cm/sec, with triphasic flow. Proximal superficial femoral artery: 50 cm/sec, with triphasic flow. Mid superficial femoral artery: 44 cm/sec, with triphasic flow. Distal superficial femoral artery: Appears occluded however due to technical error, no power Doppler images obtained. Popliteal arterial graft appears patent. Posterior tibial artery: 33 cm/sec, with monophasic flow. Anterior tibial artery/dorsalis pedis: 23 cm/sec, with monophasic flow. No Donis's cyst IMPRESSION: Near occlusion versus complete occlusion of the distal superficial femoral artery with distal reconst itution. Reviewed by: Jay Edwards MD on 07/09/2020 12:44 PM PST Approved by: Jay Edwards MD on 07/09/2020 12:44 PM PST Station ID: [id number]
== END 2020-07-09 08:34 | disposition home or self-care (01) ==
LOC: DI 08:33
PROVIDERS: ATTEND Nurse Practitioner Family
DX: E11.621 Type 2 diabetes mellitus with foot ulcer (principal); I77.1 Stricture of artery
CPT/HCPCS: 36415; 82565

== ENCOUNTER 2021-01-31 13:38 | Outpatient (CLI) | payer MEDICARE, OTHER ==
[2021-01-31 19:57] LABS: ESTIMATED AVERAGE GLUCOSE 137 mg/dL (70-100); HEMOGLOBIN A1c% 6.4 % (4.27-6.07)
== END 2021-01-31 13:39 | disposition home or self-care (01) ==
LOC: LAB 13:38
PROVIDERS: ATTEND Internal Medicine
DX: E11.42 Type 2 diabetes mellitus with diabetic polyneuropathy (principal); Z79.899 Other long term (current) drug therapy
CPT/HCPCS: 36415; 82607; 82746; 83036

== ENCOUNTER 2021-04-28 13:58 | Outpatient (CLI) | payer MEDICARE, OTHER ==
--- NOTE | 2021-04-28 16:41 | MRI Report ---
PROCEDURE: Ankle RT W/O INDICATIONS: PRIMARY OSTEOARTHRITIS, RIGHT ANKLE AND FOOT TECHNIQUE: Noncontrast sagittal T1 spin echo and T2 fast spin echo with fat saturation, axial proton density fas t spin echo and T2 fast spin echo with fat saturation, coronal T1 spin echo and T2 fast spin echo wit h fat saturation through the ankle/hindfoot. COMPARISON: None. FINDINGS: Image quality: Excellent. Bones and joints: There is dorsal lateral dislocation of the tarsometatarsal joints with surrounding osseous edema. Remodeling of the osseous structures is seen with mild osseous fragmentation. Fluid i s seen surrounding the tarsometatarsal joints. Mild edema and degenerative changes also seen in the n aviculocuneiform articulations. The mortise joint and subtalar joints are intact. A small nonedematou s plantar calcaneal enthesophyte is present. Soft tissues: There is diffuse fatty infiltration of the intrinsic foot musculature, consistent with chronic denervation changes. The deltoid ligament is intact. The anterior and posterior tibiofibular ligaments are intact. The anterior talofibular ligament, calcaneofibular ligament, and posterior talo fibular ligament are intact. The medial and lateral ankle flexor tendons are intact. The extensor ten dons are intact. The Achilles tendon and proximal plantar fascia are intact. There is presumed disrup tion of the Lisfranc ligament. Nonspecific soft tissue edema is seen in the lower leg. IMPRESSION: 1.Dislocation of the tarsometatarsal joints with surrounding osseous and soft tissue edema and mild r emodeling and osseous fragmentation are suspicious for neuropathic arthropathy. 2.Severe fatty infiltration of the intrinsic foot musculature is consistent with chronic denervation changes. Reviewed by: Ruddy Ugarte MD on 04/28/2021 4:39 PM PDT Approved by: Ruddy Ugarte MD on 04/28/2021 4:39 PM PDT Station ID: [id number]
== END 2021-04-28 13:59 | disposition home or self-care (01) ==
LOC: DI 13:58
PROVIDERS: ATTEND Podiatrist
DX: E11.69 Type 2 diabetes mellitus with other specified complication (principal); M19.071 Primary osteoarthritis, right ankle and foot; M14.671 Charcot's joint, right ankle and foot; Z89.411 Acquired absence of right great toe; R93.6 Abnormal findings on diagnostic imaging of limbs; R93.89 Abnormal findings on diagnostic imaging of other specified body structures

== ENCOUNTER 2022-06-09 14:06 | Outpatient (CLI) | payer MEDICARE, OTHER ==
--- NOTE | 2022-06-09 16:11 | XRAY Report ---
PROCEDURE: Chest 2 View X-Ray INDICATIONS: COUGH TECHNIQUE: 2 views of the chest were acquired. COMPARISON: 05/17/2020 FINDINGS: Surgical changes and devices: None. Lungs and pleura: No pleural effusions or pneumothorax. Lungs are clear. Mediastinum: Mediastinal contours are normal. Heart size is normal. Bones and chest wall: Multiple old right posterior lateral rib fractures are again seen. No suspiciou s bony abnormalities. Soft tissues appear unremarkable. IMPRESSION: No acute cardiopulmonary pathology. Reviewed by: Willie Osuna MD on 06/09/2022 4:10 PM PST Approved by: Willie Osuna MD on 06/09/2022 4:10 PM PST Station ID: [id number]
== END 2022-06-09 14:07 | disposition home or self-care (01) ==
LOC: DI 14:06
PROVIDERS: ATTEND Nurse Practitioner Family
DX: R05.9 Cough, unspecified (principal)

== ENCOUNTER 2022-07-06 13:27 | Outpatient (CLI) | payer MEDICARE, OTHER ==
[2022-07-06 13:51] LABS: CALCIUM 8.9 mg/dL (8.5-10.3); CREATININE 1.1 mg/dL (0.6-1.2); POTASSIUM 4.6 mmol/L (3.5-5.0)
== END 2022-07-06 13:28 | disposition home or self-care (01) ==
LOC: LAB 13:27
PROVIDERS: ATTEND Otolaryngology
DX: Z01.818 Encounter for other preprocedural examination (principal); D14.1 Benign neoplasm of larynx
CPT/HCPCS: 36415; 80048; 93005

== ENCOUNTER 2022-07-09 13:43 | Outpatient (CLI) | payer MEDICARE, OTHER ==
[2022-07-09] MEDS ORDERED: iohexoL-300 100 ML VIAL ONE (14:02)
--- NOTE | 2022-07-09 15:49 | CT Report ---
PROCEDURE: SOFT TISSUE NECK W INDICATIONS: LARYNX MASS CONTRAST: 100ml omni 300 TECHNIQUE: After the administration of intravenous contrast, 3.0 mm axial sections acquired from the sella to th e aortic arch. Additional oblique axial 3.0 mm sections acquired through the pharynx. 3 mm thick co andrey reformats were generated. For radiation dose reduction, the following was used: automated exp osure control, adjustment of mA and/or kV according to patient size. COMPARISON: Correlation is made with the accompanying chest CT, 07/09/2022. FINDINGS: Image quality: Excellent. Lymph notes: There is an enlarged left level 2A lymph node seen, as on series 2 image 78 measuring 15 x 10 mm. Borderline prominent lymph nodes are seen within the neck on both sides. Vessels: Visualized vasculature appears patent. Vascular changes are seen, including approximately 50% stenosis involving the proximal aspects of both internal carotid arteries. Neck spaces: There is soft tissue fullness seen involving the left aspect of the larynx, as on serie s 2 image 89. However, no well-defined, enhancing mass is seen on this study. No definite additional soft tissue masses can be seen. Glands: The parotid and submandibular glands appear normal. The thyroid is normal in size and there are no incidental findings. Miscellaneous: Visualized brain and orbits appear normal. Lung apices appear clear. Superficial so ft tissues appear normal. Bones: No suspicious bony lesions. Visualized sinuses and mastoids appear unremarkable. Moderate t o severe lower cervical spine degenerative changes are seen. IMPRESSION: Abnormal soft tissue fullness can be seen involving the left aspect of the larynx, yet without a well -defined mass identified. Please correlate with laryngoscopy results. On the left, there is a mildly enlarged lymph node seen, which is suspicious for metastatic disease. Borderline prominent lymph nodes can be seen elsewhere within the neck. Approximately 50% stenosis can be seen involving the proximal aspects of both internal carotid arteri es. Moderate to severe lower cervical spine degenerative changes are seen. Reviewed by: Rosendo Singh MD on 07/09/2022 2:48 PM AKST Approved by: Rosendo Singh MD on 07/09/2022 2:48 PM AK Station ID: [id number]
--- NOTE | 2022-07-09 15:52 | CT Report ---
PROCEDURE: CHEST W INDICATIONS: LARYNX MASS CONTRAST:100ml omni 300 TECHNIQUE: After the administration of intravenous contrast, 1 mm axial images were acquired from the pulmonary apices through the posterior costophrenic angles. Axial 5 mm soft tissue kernel reconstructions were performed as well as 8 mm axial MIP and coronal and sagittal 5 mm reformations. For radiation dose reduction, the following was used: automated exposure control, adjustment of mA and/or kV according to patient size. COMPARISON: August 14, 2016. Correlation is also made with the accompanying neck CT examination. FINDINGS: Image quality: Excellent. Lungs and pleura: No acute air space opacities. No areas of subpleural scarring can be seen. No pleu ral effusions or pneumothorax. Central and peripheral airways are patent and normal in caliber. Mediastinum: Heart size is normal. No pericardial effusion. No mediastinal or hilar adenopathy by size criteria. Thoracic aorta and central pulmonary arteries are normal in size. Incidental note is made of a common trunk off of the aorta of the right brachiocephalic artery and the left common carot id artery (bovine type aortic arch). This is considered to be a developmental variant of typically no clinical consequence. Moderate coronary artery calcification is incidentally noted. Esophagus is no rmal in caliber. No hiatal hernia. Bones and chest wall: No suspicious bony lesions. No vertebral body compression fractures. Age-appr opriate degenerative changes are seen. There is accentuated thoracic kyphosis. No axillary or supr aclavicular adenopathy by size criteria. The thyroid is normal in size and there are no incidental f indings.. Abdomen: Visualized upper abdominal solid organs appear normal. Upper abdominal bowel loops are nor mal in caliber. IMPRESSION: No suspicious pulmonary nodules are seen. No enlarged lymph nodes are seen. Additional findings: Bovine type aortic branching pattern Moderate coronary artery calcification Reviewed by: Rosendo Singh MD on 07/09/2022 2:50 PM AKST Approved by: Rosendo Singh MD on 07/09/2022 2:50 PM AKST Station ID: [id number]
[2022-07-09] MEDS ORDERED: iohexoL-300 100 ML VIAL IVP ONE (16:00)
== END 2022-07-09 13:44 | disposition home or self-care (01) ==
LOC: DI 13:43
PROVIDERS: ATTEND Otolaryngology
DX: J38.7 Other diseases of larynx (principal); M79.9 Soft tissue disorder, unspecified; R59.0 Localized enlarged lymph nodes; I65.23 Occlusion and stenosis of bilateral carotid arteries
CPT/HCPCS: 70491; 71260; Q9967

== ENCOUNTER 2022-10-23 15:56 | Outpatient (CLI) | payer MEDICARE, OTHER ==
[2022-10-23 16:27] LABS: BASOPHILS % (AUTO) 0.4 %; EOSINOPHILS % (AUTO) 1.7 %; HCT - HEMATOCRIT 24.9 % (42.0-52.0); HGB - HEMOGLOBIN 8.2 g/dL (14.0-18.0); LYMPHOCYTES # (AUTO) 0.6 10^3/uL (1.5-3.5); LYMPHOCYTES % (AUTO) 23.9 %; MEAN CORPUSCULAR HEMOGLOBIN 33.6 pg (27.0-31.0); MEAN CORPUSCULAR HGB CONC 32.9 g/dL (32.0-36.0); MEAN PLATELET VOLUME 8.6 fL (7.4-11.4); MONOCYTES # (AUTO) 0.6 10^3/uL (0.0-1.0); MONOCYTES % (AUTO) 27.4 %; NEUTROPHILS # (AUTO) 1.1 10^3/uL (1.5-6.6); NEUTROPHILS % (AUTO) 46.2 %; PLT - PLATELET COUNT 193 10^3/uL (130-450); RED BLOOD COUNT 2.44 10^6/uL (4.70-6.10); RED CELL DISTRIBUTION WIDTH 18.2 % (12.0-15.0); WHITE BLOOD COUNT 2.3 x10^3/uL (4.8-10.8)
[2022-10-23 16:41] LABS: ALBUMIN/GLOBULIN RATIO 1.4 (1.0-2.2); BILIRUBIN,TOTAL 0.4 mg/dL (0.2-1.0); CALCIUM 9.1 mg/dL (8.5-10.3); CREATININE 1.1 mg/dL (0.6-1.2); TOTAL PROTEIN 6.9 g/dL (6.7-8.2)
[2022-10-23 16:52] LABS: PLATELET ESTIMATE, MANUAL NORMAL (130-450,000) (NORMAL); PLATELET MORPHOLOGY NORMAL APPEARANCE (NORMAL)
[2022-10-23] MEDS ORDERED: iohexoL-300 100 ML VIAL ONE (18:02)
--- NOTE | 2022-10-23 19:11 | CT Report ---
PROCEDURE: ANGIO CHEST W/WO INDICATIONS: OHER FORMS OF DYSPNEA CONTRAST: 80mL Omni 300 TECHNIQUE: After the administration of intravenous contrast, 2 mm axial images were acquired from the pulmonary apices to the posterior costophrenic angles during the arterial phase. In addition, 1 mm lung kernel and 5 mm soft tissue kernel reconstructions were performed. 3-dimensional coronal oblique maximum int ensity projection (MIP) reformats, 8 mm axial MIP, and 5 mm coronal and sagittal MPR reformats were t hen performed through the thorax. For radiation dose reduction, the following was used: automated exp osure control, adjustment of mA and/or kV according to patient size. COMPARISON: CT chest dated 07/09/2022 FINDINGS: Image quality: Excellent. Large vessels: No filling defects within the opacified pulmonary arteries, accounting for motion and contrast timing. No evidence of acute aortic syndrome or aortic aneurysm. Bovine type aortic branchi ng pattern is again seen unchanged from previous study. Lungs and pleura: Ill-defined and sagittal airspace opacities and groundglass opacities are noted sca ttered in right upper, middle and lower lobes.. No pleural effusions. No pneumothorax. No suspicious pulmonary nodules which require follow up. Dependent atelectasis in posterior and lateral periphery of bilateral lower lung unger are seen. Mediastinum: Heart size is enlarged. No pericardial effusions. No mediastinal adenopathy by size crit eria. A small hiatal hernia is seen. Chest wall and lower neck: Thyroid is unremarkable. No axillary or supraclavicular adenopathy by size . Right chest wall Port-A-Cath tip is in SVC. Bones: No aggressive osseous abnormality. Upper Abdomen: PEG tube balloon is seen within stomach lumen. No gross abnormalities are seen in visu alized portion of liver, spleen, gallbladder and bilateral adrenal glands.. IMPRESSION: 1. No evidence of pulmonary emboli. No thoracic aortic aneurysm or dissection. Bovine type aortic bra nching pattern unchanged from prior study. 2. Ill-defined airspace opacities and groundglass opacities scattered in right hemithorax and may rep resent patchy right-sided pulmonary infiltrates. No pleural effusion or pneumothorax. Airway is paten t. 3. Cardiomegaly, no pericardial effusion. No mediastinal or hilar lymphadenopathy by size criteria. M oderate atherosclerotic calcifications in coronary vessels. Reviewed by: Willie Osuna MD on 10/23/2022 7:10 PM PDT Approved by: Willie Osuna MD on 10/23/2022 7:10 PM PDT Station ID: [id number]
[2022-10-23] MEDS ORDERED: iohexoL-300 100 ML VIAL IVP ONE (21:40)
== END 2022-10-23 15:57 | disposition home or self-care (01) ==
LOC: LAB 15:56
PROVIDERS: ATTEND Registered Nurse
DX: R06.09 Other forms of dyspnea (principal); I51.7 Cardiomegaly
CPT/HCPCS: 36415; 71275; 80053; 85025; Q9967

== ENCOUNTER 2023-05-02 06:25 | Day surgery (SDC) | payer MEDICARE, OTHER ==
[2023-05-02] MEDS ORDERED: LACTATED RINGERS 1,000 ML IV ONE ×2 (06:44→08:16)
--- NOTE | 2023-05-02 07:16 | ANESTHESIA ---
Pre-Anesthesia VS, & Labs - Diagnosis history of polyps - Procedure colonoscopy Vital Signs: Temp Pulse Resp BP Pulse Ox O2 Flow Rate 36.0 C L 70 18 124/85 H 100 05/02/23 06:35 05/02/23 06:35 05/02/23 06:35 05/02/23 06:35 05/02/23 06:35 Height: 6 ft Weight (kg): 100 kg Body Mass Index: 29.9 BMI Classification: Overweight - NPO Other (430 am finished prep) - Lab Results Current Lab Results: Laboratory Tests 05/02/23 06:55: POC Whole Bld Glucose 94 Home Medications and Allergies Home Medications: Ambulatory Orders Pregabalin 150 mg PO TID 05/01/23 Atorvastatin [Lipitor] 40 mg PO DAILY 05/17/20 Losartan Potassium [Cozaar] 50 mg PO DAILY 05/17/20 amLODIPine [Norvasc] 5 mg PO DAILY 05/17/20 metFORMIN [Glucophage] 1,000 mg PO BID 05/17/20 Insulin Glargine,Hum.rec.anlog [Basaglar Kwikpen U-100] 10 unit SUBQ DAILY 06/08/20 Pregabalin 150 mg PO TID 05/01/23 Allergies/Adverse Reactions: Allergies Allergy/AdvReac Type Severity Reaction Status Date / Time No Known Drug Allergies Allergy Verified 05/02/23 06:53 Anes History & Medical History - Anesthetic History Anesthesia Complications: reports: No previous complications - Medical History Cardiovascular: reports: Hypertension, High cholesterol Pulmonary: reports: None Gastrointestinal: reports: None Urinary: reports: Benign prostate hypertrophy Neuro: reports: Peripheral neuropathy Musculoskeletal: Endocrine/Autoimmune: reports: Type 2 diabetes Skin: reports: None Smoking Status: Former smoker - Surgical History General: reports: Colonoscopy Cardiothoracic: reports: Vascular surgery Exam General: Alert, Oriented x3, Cooperative Dental: WNL Mouth Opening: Greater than 4 Fingerbreadths Neck Mobility: Normal Mallampati classification: III Thyromental Distance: greater than 6 cm Respiratory: Lungs clear Cardiovascular: Regular rate, Normal S1, Normal S2 Plan Anesthesia Type: Total IV Consent for Procedure(s) Verified and Reviewed: Yes Code Status: Attempt Resuscitation ASA classification: 3-Severe systemic disease Is this case an emergency?: No
[2023-05-02] MEDS ORDERED: PROPOFOL 500 MG/50 ML 500 MG/50 ML VIAL ONE (07:47)
[2023-05-02 08:54] VITALS: BP 119/55; O2SAT 100
--- NOTE | 2023-05-02 11:19 | ANESTHESIA POST OP EVALUATION ---
Anesthesia Post Eval - Post Anesthesia Eval Vitals: Last Vital Signs Temp 36.2 C L 05/02/23 08:53 Pulse 57 L 05/02/23 08:53 Resp 12 05/02/23 08:53 BP 119/55 L 05/02/23 08:53 Pulse Ox 100 05/02/23 08:53 O2 Flow Rate CV Function Including HR & BP: Stable Pain Control: Satisfactory Nausea & Vomiting: Negative Mental Status: Baseline Respiratory Status: Airway Patent Hydration Status: Satisfactory Anesthesia Complications: None
== END 2023-05-02 06:26 | disposition home or self-care (01) ==
LOC: SDS 06:25
PROVIDERS: ATTEND Surgery
DX: Z12.11 Encounter for screening for malignant neoplasm of colon (principal); K64.1 Second degree hemorrhoids; Z86.010 Personal history of colon polyps; E11.9 Type 2 diabetes mellitus without complications; Z79.84 Long term (current) use of oral hypoglycemic drugs; Z79.4 Long term (current) use of insulin
CPT/HCPCS: G0105; J7120

== ENCOUNTER 2023-09-28 13:48 | Outpatient (CLI) | payer MEDICARE, OTHER ==
--- NOTE | 2023-09-28 14:34 | XRAY Report ---
PROCEDURE: Foot 3+V RT (Weight Bearing) INDICATIONS: HISTORY OF CHARCOT TECHNIQUE: 3 views of the foot were acquired. COMPARISON: None. FINDINGS: Bones: There is no focal collapse with dorsal and lateral subluxation/dislocation at second through f ifth MP joints. Finding is consistent with patient's history of Charcot arthropathy. Prior amputation of great toe at the level of distal first metatarsal shaft is seen. No acute fracture or dislocation . No gross bony erosion or cortical destruction is noted. Small plantar and dorsal calcaneal diesel f ights are seen.No suspicious bony lesions. Soft tissues: There is suggestion of ulceration over medial and dorsal aspect of forefoot at the lev el of first metatarsal stump. No abnormal soft tissue calcifications. No tibiotalar joint effusion. Achilles tendon appears normal. IMPRESSION: 1. Midfoot collapse and dislocation/subluxation at second through fifth TMT joints consistent with christian monge's clinical history of Charcot's arthropathy. Prior amputation of great toe. No acute fracture. No radiographic evidence of osteomyelitis. 2. Suggestion of ulceration involving medial aspect of forefoot at the level of first metatarsal stum p. No abnormal soft tissue calcifications. Reviewed by: Willie Osuna MD on 09/28/2023 2:33 PM PDT Approved by: Willie Osuna MD on 09/28/2023 2:33 PM PDT Station ID: [id number]
== END 2023-09-28 13:49 | disposition home or self-care (01) ==
LOC: DI 13:48
PROVIDERS: ATTEND Podiatrist
DX: M14.671 Charcot's joint, right ankle and foot (principal); Z89.411 Acquired absence of right great toe

== ENCOUNTER 2024-01-11 12:15 | Outpatient (CLI) | payer MEDICARE, OTHER ==
--- NOTE | 2024-01-11 15:14 | Ultrasound Report ---
PROCEDURE: Arterial Duplex Lwr Ext RT INDICATIONS: PAD TECHNIQUE: Color and pulse Doppler interrogation was performed of the right lower extremity arterial system, wit h image documentation. COMPARISON: None FINDINGS: Common femoral artery: 114 cm/sec, spectral broadening, parvus tardis Deep femoral artery: 85 cm/sec, with spectral broadening, parvus tardis Proximal superficial femoral artery: 81 cm/sec, with spectral broadening, parvus tardis Mid superficial femoral artery: 64 cm/sec, spectral broadening, parvus tardis Distal superficial femoral artery: 99m/sec, triphasic Popliteal artery: 133 cm/sec, with parvus tardus Posterior tibial artery: cm/sec, with 14 parvus tardis. Anterior tibial artery/dorsalis pedis: 55/95 cm/sec, parvus tardis, monophasic Alarcon-scale imaging description: Significant inflow plaque IMPRESSION: 1. Significant plaque in the common femoral, proximal superficial femoral artery with abnormal wavefo stiven indicating hemodynamically significant inflow obstruction 2. Anterior tibial artery hemodynamically significant obstruction Reviewed by: Omer Edge MD on 01/11/2024 3:13 PM PDT Approved by: Omer Edge MD on 01/11/2024 3:13 PM PDT Station ID: [id number]
== END 2024-01-11 12:16 | disposition home or self-care (01) ==
LOC: DI 12:15
PROVIDERS: ATTEND Surgery Vascular Surgery
DX: I70.201 Unspecified atherosclerosis of native arteries of extremities, right leg (principal)

== ENCOUNTER 2024-01-14 10:54 | Outpatient (CLI) | payer MEDICARE, OTHER ==
--- NOTE | 2024-01-14 18:40 | CT Report ---
PROCEDURE: CT heart coronary calcium scoring without contrast TECHNIQUE: MDCT non-contrast cardiac gated images were obtained from the stu through the inferior margin of the heart. Calcium score was obtained by post-processing with external software. Automated exposure control was used to reduce patient radiation dose. INDICATION: CAD screening, low or intermediate risk COMPARISON: 10/23/2022 FINDINGS: Image quality: Excellent Agatston method: Total calcium score: 1354.6 L main: 386.3 LAD: 40.1 LCX: 605.8 RCA: 322.3 Heart findings: Mitral annular calcifications: No significant calcifications. Aortic valve: No significant valvular calcifications. Chambers: No significant enlargement on this non-dynamic study. Pericardium: No effusion. Other findings (note the chest is incompletely imaged on this limited non-contrast study): Lungs and pleura: No pleural effusion. No actionable lung nodules. Mediastinum: No pathologic lymphadenopathy. Upper abdomen: Partially seen, unremarkable. Bones: No acute or suspicious abnormality. IMPRESSION: Severe coronary artery calcification. Coronary artery calcium scores have been identified as an independent risk factor for future acute co ronary syndromes and correlate with the quantity of coronary atherosclerotic plaque. However, they do not correlate directly with the degree of stenosis. A low score does not exclude a significant coron suha artery stenosis. Risk of future coronary events should be assessed with individual patient risk factors and medical hi story. Consider correlation with risk percentiles using the DANIEL (Multi-Ethnic Study of Atheroscleros is) calculator. CAC-DRS Categories: A0: 0, very low risk, consider repeat coronary calcium study every 3-7 years for surveillance. A1: 1-99, mildly increased risk, consider moderate-intensity statin A2: 100-299: moderately increased risk, consider moderate to high-intensity statin + ASA 81mg A3: >300: moderately to severely increased risk, consider high-intensity statin + ASA 81mg Reviewed by: Rosendo Singh MD on 01/14/2024 5:38 PM AKDT Approved by: Rosendo Singh MD on 01/14/2024 5:38 PM AKDT Station ID: [id number]
== END 2024-01-14 10:55 | disposition home or self-care (01) ==
LOC: DI 10:54
PROVIDERS: ATTEND Internal Medicine Cardiovascular Disease
DX: R06.09 Other forms of dyspnea (principal); E78.5 Hyperlipidemia, unspecified; I25.10 Atherosclerotic heart disease of native coronary artery without angina pectoris

== ENCOUNTER 2024-02-01 08:00 | Outpatient (CLI) | payer MEDICARE, OTHER | END 2024-02-01 23:59 | disposition home or self-care (01) | LOC: LAB.R 08:00 | PROVIDERS: ATTEND Podiatrist | DX: E11.622 Type 2 diabetes mellitus with other skin ulcer (principal) | CPT/HCPCS: 87070; 87205 ==

== ENCOUNTER 2024-02-11 08:00 | Outpatient (CLI) | payer MEDICARE, OTHER | END 2024-02-11 23:59 | disposition home or self-care (01) | LOC: LAB.R 08:00 | PROVIDERS: ATTEND Podiatrist | DX: E11.622 Type 2 diabetes mellitus with other skin ulcer (principal) | CPT/HCPCS: 87070; 87077; 87205 ==